=== PATIENT | male | born 1940 | race Caucasian/White ===

== ENCOUNTER 2016-05-25 09:00 | Inpatient (IN) | payer OTHER, MEDICARE ==
[~2016-05-25] VITALS: Ht 182.9 cm; Wt 73.2 kg
[2016-05-25] VITALS (9 sets, daily range): BP systolic 80–106; BP diastolic 47–64; PULSE 72–122; TEMP 36.5–36.8; O2SAT 2–99; Ht 182.9 cm; Wt 73.2 kg
[2016-05-25] MEDS ORDERED: SODIUM CHLORIDE 0.9% 500ML 500 ML IV STA ×2 (09:16→10:02)
--- NOTE | 2016-05-25 09:20 | EMERGENCY ROOM VISIT NOTE ---
History Report prepared by Eric: Jony Callejas Under the Supervision of: Keiko EnglishO. First contact with patient: 09:07 Stated Complaint: SHORTNESS OF BREATH History of Present Illness The patient is a 75 year old male who presents to the Emergency Room with complaints of persistent shortness of breath. The patient was at dialysis today when he was noted to be short of breath. The patient was sent to the emergency Department directly from dialysis. The patient was reportedly hypoxic and having significant difficulty breathing. He was placed on supplement oxygen prior to arrival which improved his situation. The patient at this time complaint of shortness of breath and cough. He states the cough is minimally productive at times. He states this began approximately 2-3 days ago. He also has been noticing left lower quadrant abdominal pain and significant nausea and vomiting every time he eats. He denies having any chest pain at this time. He is unsure if he had a fever. He states that he had approximately 3 hours of dialysis today but did not have a full course. He does not notice any weight gain. He denies having any increased swelling in his legs from baseline. He denies having any diarrhea or GI bleeding. The patient states his symptoms are improved at this time that were very significant prior to arrival. Source of History: patient Onset: today Position: other (global) Quality: other (shortness of breath) Timing: other (persistent) Associated Symptoms: + abdominal pain, + cough, + nausea, + vomiting, No chest pain, No diarrhea Review of Systems See HPI for pertinent positives & negatives. A total of 10 systems reviewed and were otherwise negative. Past Medical & Surgical Medical Problems: (1) Bladder cancer (2) CHF (congestive heart failure) (3) Dialysis patient (4) Diverticulitis (5) End stage chronic kidney disease (6) High cholesterol Surgical Problems: (1) H/O prostatectomy Family History Patient reports no known family medical history. Social History Smoking Status: Former Smoker Smokeless Tobacco Use: No Alcohol Use: other (quit 3-4 years ago) Drug Use: none Marital Status: Housing Status: lives with significant other Current/Historical Medications Scheduled Aspirin (Aspirin Ec), 81 MG PO DAILY Atorvastatin (Lipitor), 1 TAB PO HS Calcium Acetate (Phoslo 667 Mg), 2 CAP PO TID Ergocalciferol (Vitamin D 02422 Unit), 1 CAP PO WK Scheduled PRN Hydrocodone/Acetaminophen 5MG/325MG ([place] 5MG/325MG), 1 TABLET PO for Pain Ketorolac (Toradol), 10 MG PO for Pain Miscellaneous Medications Cyanocobalamin (B12) Yqbluplykjbyf-Svfisjsjnu-Xhamr (Nyquil Severe Cold/Flu 5-6.25-10-325 mg/15Ml) Vitamins C & E (Vitamin C) Allergies Coded Allergies: Aspirin (Unverified Allergy, Unknown, caused a GI Bleed, 05/25/16) Patient is currently taking aspirin Physical Exam Vital Signs Date Time Temp Pulse Resp B/P Pulse Ox O2 Delivery O2 Flow Rate FiO2 05/25/16 10:57 120 18 103/67 96 Nasal Cannula 2.0 05/25/16 10:06 101 18 92/64 94 Nasal Cannula 2.0 05/25/16 09:39 96 Nasal Cannula 2.0 05/25/16 09:12 101 05/25/16 09:10 36.6 103 20 63/41 95 Room Air Physical Exam GENERAL: Patient is awake alert. He appears anxious and somewhat uncomfortable. EYES: The conjunctivae are clear. The pupils are round and reactive. EARS, NOSE, MOUTH AND THROAT: The nose is without any evidence of any deformity. Mucous membranes are dry. NECK: The neck is nontender and supple. RESPIRATORY: Normal respiratory effort is noted. There is diffuse rhonchi noted throughout. There are rales at both bases. CARDIOVASCULAR: Tachycardic rate with ectopy noted to auscultation. No definite murmur was noted. GASTROINTESTINAL: The abdomen is soft. There is left lower quadrant tenderness to palpation. Mild guarding is noted in the left lower quadrant. MUSCULOSKELETAL/EXTREMITIES: There is no evidence of gross deformity full range of motion is noted in the hips and shoulders SKIN: There is no obvious evidence of any rash. Trace pedal edema was noted bilaterally. NEUROLOGIC: Patient is awake alert and oriented x3. Medical Decision & Procedures ER Provider Diagnostic Interpretation: X-ray results as stated below per interpretation by me and the radiologist. CHEST ONE VIEW PORTABLE CLINICAL HISTORY: Sepsis dyspnea COMPARISON STUDY: No previous studies for comparison. FINDINGS: Diffuse parenchymal infiltrate left base. Permanent gas. Vena cava. Underlying emphysematous change. Diaphragms smooth. IMPRESSION: Infiltrate left base. Emphysematous change. Electronically signed by: Waqas Jimenez M.D. 05/25/2016 9:50 AM Dictated Date/Time: 05/25/2016 9:50 AM Laboratory Results 05/25/16 09:15 Red Blood Count 2.71, Mean Corpuscular Volume 91.9, Mean Corpuscular Hemoglobin 31.0, Mean Corpuscular Hemoglobin Concent 33.7, Mean Platelet Volume 10.4 05/25/16 09:15 Test 05/25/16 09:15 05/25/16 09:24 05/25/16 09:26 05/25/16 09:56 White Blood Count 22.80 K/uL (4.8-10.8) Red Blood Count 2.71 M/uL (4.7-6.1) Hemoglobin 8.4 g/dL (14.0-18.0) Hematocrit 24.9 % (42-52) Mean Corpuscular Volume 91.9 fL (80-100) Mean Corpuscular Hemoglobin 31.0 pg (25-34) Mean Corpuscular Hemoglobin Concent 33.7 g/dl (32-36) Platelet Count 326 K/uL (130-400) Mean Platelet Volume 10.4 fL (7.4-10.4) RDW Standard Deviation 54.4 fL (36.4-46.3) RDW Coefficient of Variation 16.5 % (11.5-14.5) Nucleated RBC Absolute Count (auto) 0.06 K/uL (0-0) Neutrophils % (Manual) 89.5 % Lymphocytes % (Manual) 3.5 % Monocytes % (Manual) 2.6 % Metamyelocytes % 3.5 % Myelocytes % 0.9 % Nucleated Red Blood Cells % 0.2 % Neutrophils # (Manual) 20.41 K/uL (1.4-6.5) Total Absolute Neutrophils 20.41 K/uL (1.4-6.5) Lymphocytes # (Manual) 0.80 K/uL (1.2-3.4) Total Absolute Lymphocytes 0.80 K/uL (1.2-3.4) Monocytes # (Manual) 0.59 K/uL (0.11-0.59) Metamyelocytes # 0.80 K/uL (0-0) Myelocytes # 0.21 K/uL (0-0) Red Blood Cell Morphology Unremarkable Erythrocyte Sedimentation Rate 79 mm/hr (0-14) Prothrombin Time 11.4 SECONDS (9.0-12.0) Prothromb Time International Ratio 1.1 (0.9-1.1) Activated Partial Thromboplast Time 41.3 SECONDS (21.0-31.0) Partial Thromboplastin Ratio 1.6 Anion Gap 17.0 mmol/L (3-11) Est Creatinine Clear Calc Drug Dose 15.7 ml/min Estimated GFR () 16.2 Estimated GFR (Non- 13.9 BUN/Creatinine Ratio 11.4 (10-20) Calcium Level 10.1 mg/dl (8.5-10.1) Phosphorus Level 4.2 mg/dl (2.5-4.9) Magnesium Level 2.6 mg/dl (1.8-2.4) Total Bilirubin 0.9 mg/dl (0.2-1) Aspartate Amino Transf (AST/SGOT) 102 U/L (15-37) Alanine Aminotransferase (ALT/SGPT) 74 U/L (12-78) Alkaline Phosphatase 117 U/L (45-117) C-Reactive Protein 38.40 mg/dl (0-0.29) Pro-B-Type Natriuretic Peptide 7718 pg/ml (0-1800) Total Protein 7.9 gm/dl (6.4-8.2) Albumin 2.7 gm/dl (3.4-5.0) Globulin 5.2 gm/dl (2.5-4.0) Albumin/Globulin Ratio 0.5 (0.9-2) Lipase 99 U/L (73-393) Influenza Type A (RT-PCR) Neg for Influ A (NEG) Influenza Type A Antigen Neg for Influ A (NEG) Influenza Type B Antigen Neg for Influ B (NEG) Influenza Type B (RT-PCR) Neg for Influ B (NEG) Bedside Lactic Acid Venous 3.92 mmol/L (0.90-1.70) Venous Blood pH 7.34 (7.36-7.41) Venous Blood Partial Pressure CO2 52 mmHg (38.0-50.0) Venous Blood Partial Pressure O2 29 mmHg Venous Blood HCO3 27 mmol/L Venous Blood Oxygen Saturation < 60.0 % Venous Blood Base Excess 1.1 mmol/L Date/Time Source Procedure Growth Status 05/25/16 00:00 Nasal MRSA DNA Surveillance Screen - Final Specimen Negative for MRSA by DNA Probe Complete Laboratory results per my review. Medications Administered Medications (Trade) Dose Ordered Sig/Edna Route Start Time Stop Time Status Last Admin Dose Admin Sodium Chloride (Nss 500ml) 500 ml @ 999 mls/hr Q31M STAT IV 05/25/16 09:16 05/25/16 09:46 DC 05/25/16 10:55 999 MLS/HR Ondansetron HCl (Zofran Inj) 4 mg NOW STAT IV 05/25/16 09:27 05/25/16 09:28 DC 05/25/16 09:48 4 MG Piperacillin Sod/ Tazobactam Sod 4.5 gm 4.5 gm NOW STAT IV 05/25/16 10:01 05/25/16 10:03 DC 05/25/16 11:15 4.5 GM Sodium Chloride (Nss 500ml) 500 ml @ 999 mls/hr Q31M STAT IV 05/25/16 10:02 05/25/16 10:32 DC 05/25/16 11:15 999 MLS/HR ECG Indication: chest pain Rate (beats per minute): 104 Rhythm: sinus tachycardia Findings: PVC, ST depression (Lateral), other (low voltage noted) Comparison ECG Date: no prior available ED Course 0907: The patient was evaluated in room B06. A complete history and physical examination were performed. 0916: Sodium Chloride 500 ml @ 999 mls/hr IV 0927: Zofran Inj 4 mg IV 1001: Zosyn IV 4.5 gm IV 1002: Sodium Chloride 500 ml @ 999 mls/hr IV 1010: Upon reevaluation, the patient is resting comfortably. I discussed results and treatment plan with him. He verbalizes agreement and understanding. [facility] He recommends holding the noncontrast CT for now. The patient will be evaluated for further management and care. Medical Decision Differential diagnosis: Etiologies such as infections, reactive airway disease, pneumonia, pneumothorax , COPD, CHF, cardiac ischemia, pulmonary embolism, musculoskeletal, gastrointestinal, as well as others were entertained. Nursing notes reviewed. The patient is a 75-year-old male who presented to emergency department for an evaluation of difficulty breathing. The patient was receiving dialysis. He had almost a full run of dialysis but started having significant shortness of breath. The patient was hypotensive. Blood cultures were obtained. The patient appears to have signs of pneumonia on his workup. He was treated with IV fluids as well as IV antibiotic. He was reevaluated multiple times. I discussed patient 's laboratory and radiographic studies with him. I discussed his case with the on-call [facility] hospitalist group. They've agreed to evaluate the patient in the emergency department for further management and disposition. The patient does appear to have some signs of sepsis. I did not wish to give him a large fluid bolus given his history of dialysis and end-stage renal disease. The patient did respond well to the fluid bolus he was given in the emergency department. Consults Time Called: 1008 Consulting Physician: [facility] Returned Call: [phone] [facility]. He recommends holding the noncontrast CT for now. Impression Primary Impression: Pneumonia Additional Impressions: Hypoxia Elevated white blood cell count Hypotension Sepsis Scribe Attestation The scribe's documentation has been prepared under my direction and personally reviewed by me in its entirety. I confirm that the note above accurately reflects all work, treatment, procedures, and medical decision making performed by me. Departure Information Dispostion Being Evaluated By Hospitalist Referrals No Doctor, Assigned (PCP) Problem Qualifiers
[2016-05-25] MEDS ORDERED: ONDANSETRON INJ 2 MG/ML 2 ML VIAL IV STA (09:27)
[2016-05-25 09:38] LABS: HEMATOCRIT 24.9 % (42-52); MEAN CELL VOLUME 91.9 fL (80-100); MEAN CORPUSCULAR HGB CONC 33.7 g/dl (32-36); MEAN PLATELET VOLUME 10.4 fL (7.4-10.4); PLATELET COUNT 326 K/uL (130-400); RED BLOOD COUNT 2.71 M/uL (4.7-6.1)
[2016-05-25 09:46] LABS: INR 1.1 (0.9-1.1); PARTIAL THROMBOPLASTIN RATIO 1.6; PROTHROMBIN TIME (PATIENT) 11.4 SECONDS (9.0-12.0)
--- NOTE | 2016-05-25 09:51 | DIAGNOSTIC IMAGING REPORT ---
CHEST ONE VIEW PORTABLE CLINICAL HISTORY: Sepsis dyspnea COMPARISON STUDY: No previous studies for comparison. FINDINGS: Diffuse parenchymal infiltrate left base. Permanent gas. Vena cava. Underlying emphysematous change. Diaphragms smooth. IMPRESSION: Infiltrate left base. Emphysematous change. Electronically signed by: Waqas Jimenez M.D. 05/25/2016 9:50 AM Dictated Date/Time: 05/25/2016 9:50 AM
[2016-05-25 09:53] LABS: BUN/CREATININE RATIO 11.4 (10-20); CALCIUM 10.1 mg/dl (8.5-10.1); CREATININE 3.9 mg/dl (0.60-1.40); MAGNESIUM 2.6 mg/dl (1.8-2.4); POTASSIUM 4.1 mmol/L (3.5-5.1)
[2016-05-25 10:00] LABS: ALB/GLOB RATIO 0.5 (0.9-2); C-REACTIVE PROTEIN 38.4 mg/dl (0-0.29); PHOSPHORUS 4.2 mg/dl (2.5-4.9)
[2016-05-25] MEDS ORDERED: PIPERACILLIN/TAZOBACTAM 4.5 GM/100ML D5W IV STA (10:01)
[2016-05-25 10:10] LABS: VEN BLOOD GAS BASE EXCESS 1.1 mmol/L; VENOUS BLOOD GAS PCO2 52 mmHg (38.0-50.0); VENOUS BLOOD GAS PO2 29 mmHg
[2016-05-25 10:11] LABS: VEN BLD GAS O2 SATURATION < 60.0 %
[2016-05-25 10:12] LABS: COMPLETE YES; LYMPHOCYTE % 3.5 %; METAMYELOCYTE % 3.5 %; MYELOCYTE % 0.9 %; NEUTROPHILS % 89.5 %
[2016-05-25] MEDS ORDERED: PIPERACILLIN/TAZOBACTAM 4.5 GM/100ML D5W ONE (10:57)
[2016-05-25] MEDS ORDERED: HYDR-5688 PO (11:36)
[2016-05-25] MEDS ORDERED: ATOR-22 PO (11:36)
[2016-05-25] MEDS ORDERED: CALC667C4 PO (11:36)
[2016-05-25] MEDS ORDERED: KETO10TA PO (11:36)
[2016-05-25 11:45] LABS: INFLUENZA A PCR Neg for Influ A (NEG); INFLUENZA B PCR Neg for Influ B (NEG)
[2016-05-25] MEDS ORDERED: HYDROmorphone INJ 0.5 MG/0.5 ML SYR IV PRN (11:45)
[2016-05-25] MEDS ORDERED: ASPI81TA28 PO (11:51)
[2016-05-25] MEDS ORDERED: PHEN-905 (11:51)
[2016-05-25] MEDS ORDERED: ERGO500037 PO (11:51)
[2016-05-25] MEDS ORDERED: CYAN100073 (11:51)
[2016-05-25] MEDS ORDERED: VITACAP26 (11:51)
[2016-05-25] MEDS ORDERED: OPTIRAY 320 IV PRN (12:00)
[2016-05-25] MEDS ORDERED: PIPERACILL/TAZOBAC CONSULT ACTIVE PRN (12:45)
--- NOTE | 2016-05-25 12:52 | History and Physical ---
History & Physical Date & Time of Service: May 25, 2016 at 12:05 Chief Complaint: Shortness Of Breath Primary Care Physician: No Doctor, Assigned History of Present Illness Source: patient, family (Daughter) Mr. Ng is a 75 y/o male with PMHx of ESRD on Hemodialysis, HLD, Peptic Ulcer Disease, Bladder CA S/P Cystectomy with Ileal Conduit, COPD on Continuous O2, and Congestive Heart Failure (Unknown Type) who presents to the ED from dialysis due to hypoxia and SOB that started during treatment. Patient is a somewhat poor historian in regards to long-term medical history and does not follow with medical providers regularly. Daughter also expresses an element of non-compliance in regards to home O2 use. He was recently treated and discharged from [facility] last week after falling on ice. Per daughter, imaging was significant for a pelvic fracture but no fractures identified in the ribs however patient reports he still has pain from this. Approx. 2-3 days ago he did develop an intermittently productive cough and does report associated SOB last night. Most concerning to him was the development of constant LLQ abdominal pain that is a 10/10 but is unable to describe the sensation. He states the pain is similar to when he had ulcers. Denies alleviated factors. Is exacerbated with palpation. Does have associated N/V and is unable to keep anything down. Reports emesis is brown in color unsure if this is emesis vs sputum as he is spitting brown sputum during exam. He also reports melena? x 1 dose however reports using Pepto-Bismol prior to this episode to help with his abdominal pain. Last BM was "the other day" but not his normal. Does take daily ASA and was prescribed Toradol for his pelvic fx. Denies chronic NSAID use otherwise. Denies ETOH intake. Due to ESRD he reports that his urine output is minimal. Denies fever/chills, CP, or diarrhea. He dialyzes in [place] and is a Monday, Monday, and Monday. States he had approx. 3 hours of dialysis but did not finish the full treatment. In the ED, He was hydrated and Zosyn initiated. He is afebrile. Significant leukocytosis at 22.8. H&H of 8.4/24.9. BNP 7718. BUN/Cr of 44/3.9. Lactic acid elevated at 3.92. CXR with LLL infiltrate. He will be admitted to telemetry for further evaluation and care. Past Medical/Surgical History Medical Problems: (1) Bladder cancer Status: Resolved (2) CHF (congestive heart failure) Status: Chronic (3) Dialysis patient Status: Chronic (4) End stage chronic kidney disease Status: Chronic (5) High cholesterol Status: Chronic Surgical Problems: (1) H/O prostatectomy Status: Resolved Family History Patient reports no known family medical history. Social History Smoking Status: Current Some Day Smoker (very rare usage) Smokeless Tobacco Use: No Alcohol Use: none Drug Use: none Marital Status: Allergies Coded Allergies: Aspirin (Unverified Allergy, Unknown, caused a GI Bleed, 05/25/16) Patient is currently taking aspirin Home Medications Scheduled Aspirin (Aspirin Ec), 81 MG PO DAILY Atorvastatin (Lipitor), 1 TAB PO HS Calcium Acetate (Phoslo 667 Mg), 2 CAP PO TID Ergocalciferol (Vitamin D 37338 Unit), 1 CAP PO WK Scheduled PRN Hydrocodone/Acetaminophen 5MG/325MG ([place] 5MG/325MG), 1 TABLET PO for Pain Ketorolac (Toradol), 10 MG PO for Pain Miscellaneous Medications Cyanocobalamin (B12) Ysfedfrnmsuyi-Ywfohoiuui-Bbstf (Nyquil Severe Cold/Flu 5-6.25-10-325 mg/15Ml) Vitamins C & E (Vitamin C) Review of Systems Constitutional: No chills, No fever Eyes: No worsening of vision ENT: No nasal symptoms, No sore throat, No trouble swallowing Respiratory: + cough, + shortness of breath, + sputum (intermittent) Cardiovascular: No chest pain Abdomen: + GI bleeding (dark colored stool x 1 - did use Pepto Bismol prior), + nausea, + pain (LLQ), + vomiting, No constipation, No diarrhea Musculoskeletal: No calf pain, No swelling Genitourinary - Male: + problem reported (minimal urine output) Hematologic / Lymphatic: No abnormal bleeding/bruising, No clotting problems Integumentary: No bleeding, No new/changing skin lesions, No rash Physical Exam Vital Signs Date Time Temp Pulse Resp B/P Pulse Ox O2 Delivery O2 Flow Rate FiO2 05/25/16 10:57 120 18 103/67 96 Nasal Cannula 2.0 05/25/16 10:06 101 18 92/64 94 Nasal Cannula 2.0 05/25/16 09:39 96 Nasal Cannula 2.0 05/25/16 09:12 101 05/25/16 09:10 36.6 103 20 63/41 95 Room Air General Appearance: + mild distress (ill-appearing; grimacing), + thin Head: normocephalic, atraumatic Eyes: PERRL, sclerae normal ENT: hearing grossly normal Neck: supple, no JVD, trachea midline Respiratory/Chest: no respiratory distress, no accessory muscle use, + decreased breath sounds, + pertinent finding (barrel chested - general poor inspiratory effort) Cardiovascular: regular rate, rhythm, no gallop, no murmur Abdomen/GI: normal bowel sounds, soft, + tenderness (mild epigastric tenderness with significant LLQ tenderness to palp; minimal guarding; no rigidity), + pertinent finding (ileal conduit) Extremities/Musculoskelatal: no calf tenderness, no pedal edema Neurologic/Psych: alert, oriented x 3 Skin: normal color, warm/dry Diagnostics Laboratory Results Results Past 24 Hours Test 05/25/16 09:15 05/25/16 09:24 05/25/16 09:26 05/25/16 09:56 Range/Units White Blood Count 22.80 4.8-10.8 K/uL Red Blood Count 2.71 4.7-6.1 M/uL Hemoglobin 8.4 14.0-18.0 g/dL Hematocrit 24.9 42-52 % Mean Corpuscular Volume 91.9 80-100 fL Mean Corpuscular Hemoglobin 31.0 25-34 pg Mean Corpuscular Hemoglobin Concent 33.7 32-36 g/dl Platelet Count 326 130-400 K/uL Mean Platelet Volume 10.4 7.4-10.4 fL RDW Standard Deviation 54.4 36.4-46.3 fL RDW Coefficient of Variation 16.5 11.5-14.5 % Nucleated RBC Absolute Count (auto) 0.06 0-0 K/uL Neutrophils % (Manual) 89.5 % Lymphocytes % (Manual) 3.5 % Monocytes % (Manual) 2.6 % Metamyelocytes % 3.5 % Myelocytes % 0.9 % Nucleated Red Blood Cells % 0.2 % Neutrophils # (Manual) 20.41 1.4-6.5 K/uL Total Absolute Neutrophils 20.41 1.4-6.5 K/uL Lymphocytes # (Manual) 0.80 1.2-3.4 K/uL Total Absolute Lymphocytes 0.80 1.2-3.4 K/uL Monocytes # (Manual) 0.59 0.11-0.59 K/uL Metamyelocytes # 0.80 0-0 K/uL Myelocytes # 0.21 0-0 K/uL Red Blood Cell Morphology Unremarkable Erythrocyte Sedimentation Rate 79 0-14 mm/hr Prothrombin Time 11.4 9.0-12.0 SECONDS Prothromb Time International Ratio 1.1 0.9-1.1 Activated Partial Thromboplast Time 41.3 21.0-31.0 SECONDS Partial Thromboplastin Ratio 1.6 Sodium Level 140 136-145 mmol/L Potassium Level 4.1 3.5-5.1 mmol/L Chloride Level 97 98-107 mmol/L Carbon Dioxide Level 26 21-32 mmol/L Anion Gap 17.0 3-11 mmol/L Blood Urea Nitrogen 44 7-18 mg/dl Creatinine 3.90 0.60-1.40 mg/dl Est Creatinine Clear Calc Drug Dose 15.7 ml/min Estimated GFR () 16.2 Estimated GFR (Non- 13.9 BUN/Creatinine Ratio 11.4 10-20 Random Glucose 135 70-99 mg/dl Calcium Level 10.1 8.5-10.1 mg/dl Phosphorus Level 4.2 2.5-4.9 mg/dl Magnesium Level 2.6 1.8-2.4 mg/dl Total Bilirubin 0.9 0.2-1 mg/dl Aspartate Amino Transf (AST/SGOT) 102 15-37 U/L Alanine Aminotransferase (ALT/SGPT) 74 12-78 U/L Alkaline Phosphatase 117 45-117 U/L Total Creatine Kinase 279 39-308 U/L Creatine Kinase MB 2.8 0.5-3.6 ng/ml Creatine Kinase MB Ratio 1.0 0-3.0 Troponin I 0.035 0-0.045 ng/ml C-Reactive Protein 38.40 0-0.29 mg/dl Pro-B-Type Natriuretic Peptide 7718 0-1800 pg/ml Total Protein 7.9 6.4-8.2 gm/dl Albumin 2.7 3.4-5.0 gm/dl Globulin 5.2 2.5-4.0 gm/dl Albumin/Globulin Ratio 0.5 0.9-2 Lipase 99 73-393 U/L Influenza Type A (RT-PCR) Neg for Influ A NEG Influenza Type A Antigen Neg for Influ A NEG Influenza Type B Antigen Neg for Influ B NEG Influenza Type B (RT-PCR) Neg for Influ B NEG Bedside Lactic Acid Venous 3.92 0.90-1.70 mmol/L Venous Blood pH 7.34 7.36-7.41 Venous Blood Partial Pressure CO2 52 38.0-50.0 mmHg Venous Blood Partial Pressure O2 29 mmHg Venous Blood HCO3 27 mmol/L Venous Blood Oxygen Saturation < 60.0 % Venous Blood Base Excess 1.1 mmol/L Test 05/25/16 11:38 Range/Units Microbiology Results 05/25/16 Blood Culture, Received Pending 05/25/16 Blood Culture, Received Pending Diagnostic Radiology CHEST ONE VIEW PORTABLE CLINICAL HISTORY: Sepsis dyspnea COMPARISON STUDY: No previous studies for comparison. FINDINGS: Diffuse parenchymal infiltrate left base. Permanent gas. Vena cava. Underlying emphysematous change. Diaphragms smooth. IMPRESSION: Infiltrate left base. Emphysematous change. EKG Sinus tachycardia with Premature atrial complexes with Aberrant conduction Nonspecific ST abnormality Abnormal ECG No previous ECGs available Impression Assessment and Plan Mr. Ng is a 75 y/o male with PMHx of ESRD on Hemodialysis, HLD, Peptic Ulcer Disease, Bladder CA S/P Cystectomy with Ileal Conduit, COPD on Continuous O2, and Congestive Heart Failure (Unknown Type) who presents to the ED from dialysis due to hypoxia and SOB that started during treatment. CXR reveals LLL infiltrate. Sepsis 2/2 PNA vs Diverticulitis? - Patient is afebrile but with leukocytosis, hypotensive, tachycardic, and elevated lactic acid - Repeat lactic acid - BCx - pending - NSS x 1 L in ED - Continue NSS 75 mL/hr as unsure of patient's cardiac function -- Bolus with 500 mLs as needed based on BP - Zosyn per pharmacy dosing Abdominal Pain: Diverticulitis? - CT Abd/Pelvis with IV Contrast - will obtain as patient is a dialysis patient - Fecal and gastric occult - NPO - Dilaudid 0.5 mg Q4H PRN Healthcare Associated Pneumonia: - Patient with recent hospital admission in [place] 2/2 fall with pelvic fx - Zosyn per pharmacy dosing Chronic Anemia vs GI Bleed: - Unknown baseline but given ESRD likely H&H related to this - Unsure of GI Bleed as patient reports brown sputum vs emesis and one melenotic stool but utilized Pepto-Bismol - Serial H&H - Troponin of 0.035 will run serial enzymes - likely related to kidney function ESRD on Hemodialysis with Ileal Conduit - MWF in [place]: - I & O - patient with minimal urine output - Consult nephrology - for possible dialysis needs Congestive Heart Failure - Unknown Type: - Patient reports poor follow-up and denies current medication use for CHF COPD with Home O2: - Non-compliance with utilization and denies daily medications for management - again poor follow-up DVT Prophylaxis: - TEDs/SCDs - Will withhold chemical prophylaxis at this time due to questionable GI bleed Code Status: - FULL RESUSCITATION Disposition: - Rather independent and currently drives and lives at home - Establishment with PCP? Patient may be reluctant to accept Level of Care Telemetry Resuscitation Status FULL RESUSCITATION VTE Prophylaxis VTE Risk Assessment Done? Y/N: Yes Risk Level: Moderate Given or contraindicated: T.E.D. Stockings, SCD's
--- NOTE | 2016-05-25 13:21 | DIAGNOSTIC IMAGING REPORT ---
CT OF THE ABDOMEN AND PELVIS WITH CONTRAST CLINICAL HISTORY: Left lower quadrant pain. Sepsis. COMPARISON STUDY: None. TECHNIQUE: Following IV administration of 120 mL of Optiray-320, axial images of the abdomen and pelvis were obtained from the lung bases to the proximal femurs. Images were reviewed in the axial, sagittal, and coronal planes. IV contrast was administered without complication. CT DOSE: 545.57 mGy.cm FINDINGS: Visualized portions of the lower chest demonstrate moderate consolidation within the left lower lobe as well as consolidation within the lingula. There is severe emphysema. There is wall thickening of the distal esophagus which is fluid-filled. Note is made of moderate distention of the stomach which is largely fluid-filled. There is also distention of the first and second portions the duodenum. There is debris within the second portion of the duodenum. There is no biliary or pancreatic ductal dilatation. Note is made of a 1.5 cm hypodense lesion within the pancreatic neck shown on image 163 of 471. This is indeterminate. The spleen is unremarkable. There is a 1.9 cm left adrenal nodule and a 1.7 cm right adrenal nodule. Both kidneys are atrophic. Of note, there is gas within both collecting systems. There is no gas within the renal parenchyma. There is no hydronephrosis. A 1.1 cm lesion within the lower pole of the right kidney likely reflects a cyst. There is extensive plaque of the abdominal aorta. A fat-containing umbilical hernia is noted. There is no evidence for a bowel obstruction. There is sigmoid diverticulosis without evidence for acute diverticulitis. A right lower quadrant ileostomy is noted. The bladder is surgically absent. There is no lymphadenopathy within the abdomen or the pelvis. No suspicious osseous lesions are present. Multiple compression deformities within the spine are likely old. IMPRESSION: 1. Left lower lobe and lingular consolidation suggestive of pneumonia, potentially on the basis of aspiration. Severe emphysema. 2. Distended fluid-filled stomach and proximal duodenum with debris within the second portion of the duodenum. A duodenal obstruction would be difficult to exclude. Nasogastric tube placement may be of benefit. 3. Gas within both renal collecting systems. This is nonspecific and may reflect emphysematous pyelitis although could also be related to the ileal conduit. This could be correlated with urinalysis. 4. Extensive sigmoid diverticulosis without evidence for acute diverticulitis. 5. Indeterminate 1.5 cm hypodense lesion within the pancreatic neck. No pancreatic or biliary ductal dilatation. This lesion is indeterminate. A follow-up CT in 6 months to ensure stability is recommended.. 6. Indeterminate bilateral adrenal nodules. These likely are benign but can be assessed on subsequent CT. Electronically signed by: Christiano Machado M.D. 05/25/2016 1:20 PM Dictated Date/Time: 05/25/2016 12:52 PM
[2016-05-25] MEDS: SODIUM CHLORIDE 0.9% 1000ML 1,000 ML IV SCH (13:54)
[2016-05-25] MEDS ORDERED: ALBUT/IPRATROP 3MG/0.5MG NEB 3 ML VIAL INH PRN (14:00)
[2016-05-25] MEDS ORDERED: VANCOMYCIN CONSULT ACTIVE PRN (14:00)
[2016-05-25] MEDS: ALBUT/IPRATROP 3MG/0.5MG NEB 3 ML VIAL INH SCH ×2 (14:35→19:20)
[2016-05-25] MEDS ORDERED: VANCOMYCIN INJ 1,400 MG in SODIUM CHLORIDE 0.9% 500ML 500 ML IV ONE (15:00)
[2016-05-25] MEDS: ONDANSETRON INJ 2 MG/ML 2 ML VIAL IV PRN (15:05)
--- NOTE | 2016-05-25 15:49 | Pharmacy Progress Note ---
Pharmacy Antibiotic Consult Date of Service: May 25, 2016. Pharmacy Dosing Scope Pharmacy is consulted to initiate vancomycin/Zosyn IV dosing therapy, order appropriate labs and adjust drug dose/frequency. Subjective The patient is a 75 year old male admitted on May 25, 2016 at 11:37. with diverticulitis or pneumonia. Objective Height (Feet): 6 Height (Inches): 0 Weight (Kilograms): 70.000 Lab Results (24hrs): Laboratory Tests Test 05/25/16 09:15 BUN/Creatinine Ratio 11.4 Blood Urea Nitrogen 44 mg/dl Creatinine 3.90 mg/dl White Blood Count 22.80 K/uL Red Blood Count 2.71 M/uL Hemoglobin 8.4 g/dL Hematocrit 24.9 % Mean Corpuscular Volume 91.9 fL Mean Corpuscular Hemoglobin 31.0 pg Mean Corpuscular Hemoglobin Concent 33.7 g/dl Platelet Count 326 K/uL Mean Platelet Volume 10.4 fL Assessment & Plan Loading dose: vancomycin 1400 (20/mg/kg) mg IV X 1 dose then: Random level has been ordered for: in the AM. Zosyn: as patient is hemodialysis patient give loading dose of Zosyn 3.375 IV gm x 1 then extended infusion over 4 hours every 12 hours Pharmacy will continue to follow and will adjust dose/frequency as necessary. Thank you
[2016-05-25 16:35] LABS: HEMATOCRIT 22.6 % (42-52)
[2016-05-25 16:41] LABS: CKMB/CK RATIO 1.1 (0-3.0)
[2016-05-25] MEDS: PIPERACILL/TAZOBAC IV 3.375 GM in DEXTROSE 5% 100ML 100 ML IV SCH (18:14)
--- NOTE | 2016-05-25 19:18 | Nephrology Consultation ---
Nephrology Consultation Date & Providers Date of Consultation: May 25, 2016. Primary Care Provider: No Doctor, Assigned Referring Provider: Reason for Consultation ESRD on HD History of Present Illness Mr. Ng is a 75-year-old male with ESRD, history of bladder cancer, PUD, COPD and CHF who was admitted to [facility] earlier today with severe sepsis. Evaluation notable for left lower lobe pneumonia and possible duodenal obstruction. NGT draining dark fluid. Mr. Ng reports recent changes in stool concerning for possible GI bleed but states that his last bowel movement was 2 days ago. He was discharged from [facility] last week after a fall on ice. He was given Toradol for pain. Hemodialysis was stopped after 3 hours today due to shortness of breath and hypoxia. He was hypotensive. Blood pressure improved with IVF in the ED. Mr. Ng acknowledges recent weight loss and changing dry weight. He had no acute complaints or concerns and stated that overall he felt much better since admission. Past Medical/Surgical History Medical: Bladder cancer, ESRD, PUD, recent fall and pelvic fracture, hyperlipidemia, COPD on home O2, history of CHF Surgical: Prostatectomy with ileal conduit Allergies Coded Allergies: Aspirin (Unverified Allergy, Unknown, caused a GI Bleed, 05/25/16) Patient is currently taking aspirin Inpatient Medications Current Inpatient Medications Medications (Trade) Dose Ordered Sig/Edna Route Start Time Stop Time Status Last Admin Dose Admin Ondansetron HCl 4 mg 4 mg Q6H PRN IV 05/25/16 11:45 06/24/16 11:44 05/25/16 15:05 4 MG Piperacillin Sod/ Tazobactam Sod 3.375 gm/Dextrose 115 ml @ 28.75 mls/ hr Q12H IV 05/25/16 18:00 06/04/16 17:59 05/25/16 18:14 28.75 MLS/HR Sodium Chloride (Nss 1000ml) 1,000 ml @ 75 mls/hr [id number] IV 05/25/16 14:00 06/24/16 11:44 05/25/16 13:54 75 MLS/HR Hydromorphone HCl (Dilaudid Inj) 0.5 mg Q4H PRN IV 05/25/16 11:45 06/08/16 11:44 Ioversol (Optiray 320) 125 ml UD PRN IV 05/25/16 12:00 2/12/17 11:59 Piperacillin Sod/ Tazobactam Sod (Consult) 1 ea UD PRN N/A 05/25/16 12:45 06/24/16 12:44 Albuterol/ Ipratropium (Duoneb) 3 ml QIDR INH 05/25/16 16:00 06/24/16 15:59 05/25/16 14:35 3 ML Albuterol/ Ipratropium (Duoneb) 3 ml Q2H PRN INH 05/25/16 14:00 06/24/16 13:59 Vancomycin HCl (Consult) 1 ea UD PRN N/A 05/25/16 14:00 06/24/16 13:59 Family History Patient reports no known family medical history. Social History Smoking Status: Unknown if Ever Smoked Smokeless Tobacco Use: No Alcohol Use: none Drug Use: none Marital Status: Review of Systems A complete review of systems was performed. Pertinent positives are noted above. All other systems are negative. Physical Exam Date Time Temp Pulse Resp B/P Pulse Ox O2 Delivery O2 Flow Rate FiO2 05/25/16 17:01 106/64 05/25/16 16:05 36.8 96 18 95/47 91 Nasal Cannula 2.0 05/25/16 16:00 Nasal Cannula 2.0 05/25/16 14:39 100 20 Nasal Cannula 2.0 05/25/16 13:10 36.7 72 18 96/64 99 Room Air 05/25/16 13:10 Room Air 05/25/16 13:00 111 16 86/69 92 05/25/16 12:46 82 05/25/16 12:15 111 20 77/66 92 Nasal Cannula 2.0 05/25/16 10:57 120 18 103/67 96 Nasal Cannula 2.0 05/25/16 10:06 101 18 92/64 94 Nasal Cannula 2.0 05/25/16 09:39 96 Nasal Cannula 2.0 05/25/16 09:12 101 05/25/16 09:10 36.6 103 20 63/41 95 Room Air General Appearance: no apparent distress, + thin Head: normocephalic, atraumatic Eyes: normal inspection, sclerae normal ENT: normal ENT inspection, pharynx normal, + pertinent finding (NGT) Neck: supple, + JVD Respiratory/Chest: lungs clear, no respiratory distress, no accessory muscle use Cardiovascular: regular rate, rhythm, no murmur, + pertinent finding ( occassional ectopy) Abdomen/GI: + distended, + pertinent finding (minimal tenderness; urostomy) Extremities/Musculoskelatal: normal inspection, no pedal edema Neurologic/Psych: alert, oriented x 3 Skin: normal color Laboratory Results Last 24 Hours Test 05/25/16 09:15 05/25/16 09:24 05/25/16 09:26 05/25/16 09:56 White Blood Count 22.80 K/uL Red Blood Count 2.71 M/uL Hemoglobin 8.4 g/dL Hematocrit 24.9 % Mean Corpuscular Volume 91.9 fL Mean Corpuscular Hemoglobin 31.0 pg Mean Corpuscular Hemoglobin Concent 33.7 g/dl Platelet Count 326 K/uL Mean Platelet Volume 10.4 fL RDW Standard Deviation 54.4 fL RDW Coefficient of Variation 16.5 % Nucleated RBC Absolute Count (auto) 0.06 K/uL Neutrophils % (Manual) 89.5 % Lymphocytes % (Manual) 3.5 % Monocytes % (Manual) 2.6 % Metamyelocytes % 3.5 % Myelocytes % 0.9 % Nucleated Red Blood Cells % 0.2 % Neutrophils # (Manual) 20.41 K/uL Total Absolute Neutrophils 20.41 K/uL Lymphocytes # (Manual) 0.80 K/uL Total Absolute Lymphocytes 0.80 K/uL Monocytes # (Manual) 0.59 K/uL Metamyelocytes # 0.80 K/uL Myelocytes # 0.21 K/uL Red Blood Cell Morphology Unremarkable Erythrocyte Sedimentation Rate 79 mm/hr Prothrombin Time 11.4 SECONDS Prothromb Time International Ratio 1.1 Activated Partial Thromboplast Time 41.3 SECONDS Partial Thromboplastin Ratio 1.6 Sodium Level 140 mmol/L Potassium Level 4.1 mmol/L Chloride Level 97 mmol/L Carbon Dioxide Level 26 mmol/L Anion Gap 17.0 mmol/L Blood Urea Nitrogen 44 mg/dl Creatinine 3.90 mg/dl Est Creatinine Clear Calc Drug Dose 15.7 ml/min Estimated GFR () 16.2 Estimated GFR (Non- 13.9 BUN/Creatinine Ratio 11.4 Random Glucose 135 mg/dl Calcium Level 10.1 mg/dl Phosphorus Level 4.2 mg/dl Magnesium Level 2.6 mg/dl Total Bilirubin 0.9 mg/dl Aspartate Amino Transf (AST/SGOT) 102 U/L Alanine Aminotransferase (ALT/SGPT) 74 U/L Alkaline Phosphatase 117 U/L Total Creatine Kinase 279 U/L Creatine Kinase MB 2.8 ng/ml Creatine Kinase MB Ratio 1.0 Troponin I 0.035 ng/ml C-Reactive Protein 38.40 mg/dl Pro-B-Type Natriuretic Peptide 7718 pg/ml Total Protein 7.9 gm/dl Albumin 2.7 gm/dl Globulin 5.2 gm/dl Albumin/Globulin Ratio 0.5 Lipase 99 U/L Influenza Type A (RT-PCR) Neg for Influ A Influenza Type A Antigen Neg for Influ A Influenza Type B Antigen Neg for Influ B Influenza Type B (RT-PCR) Neg for Influ B Bedside Lactic Acid Venous 3.92 mmol/L Venous Blood pH 7.34 Venous Blood Partial Pressure CO2 52 mmHg Venous Blood Partial Pressure O2 29 mmHg Venous Blood HCO3 27 mmol/L Venous Blood Oxygen Saturation < 60.0 % Venous Blood Base Excess 1.1 mmol/L Test 05/25/16 12:30 05/25/16 15:20 05/25/16 16:57 05/25/16 17:12 Lactic Acid Level 1.9 mmol/L 1.8 mmol/L Hemoglobin 7.6 g/dL Hematocrit 22.6 % Total Creatine Kinase 237 U/L Creatine Kinase MB 2.6 ng/ml Creatine Kinase MB Ratio 1.1 Troponin I 0.041 ng/ml Impression (1) End stage chronic kidney disease (2) Dialysis patient (3) CHF (congestive heart failure) (4) Bladder cancer (5) Pneumonia (6) Sepsis Mr. Marito Ng is a 75-year-old male with ESRD on HD MWF at [facility] under the care of Dr. Clemente. He dialyzes with a TDC (having refused AVF placement). He completed 3 hours of a 4 hour treatment and left the unit below his EDW. 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 Blood pressure and volume status acceptable. Medical record was reviewed in detail. Medications are appropriately dosed for renal function. Follow up laboratory studies have been ordered. There is a concerning history of PUD and presentation with worsening anemia and concern for duodenal obstruction. Clinically improving with NGT to suction.
[2016-05-25 19:27] LABS: GASTRIC OCCULT BLOOD POS (NEG); GASTRIC OCCULT BLOOD PH 2
[2016-05-25 21:47] LABS: CKMB/CK RATIO 0.9 (0-3.0)
[2016-05-25 23:11] LABS: HEMATOCRIT 20.6 % (42-52)
[2016-05-26] VITALS (19 sets, daily range): BP systolic 100–113; BP diastolic 56–93; PULSE 87–120; TEMP 36.4–37; O2SAT 90–99
[2016-05-26] MEDS: SODIUM CHLORIDE 0.9% 1000ML 1,000 ML IV SCH (03:20)
--- NOTE | 2016-05-26 05:24 | Progress Note ---
Progress Note Contacted about hgb of 7.6 Patient has coffee ground emesis from his NG tube Type and crossed and 2 units of rbc was given, dropped to 6.9- repeat HH is still pending As patient was on Tele but on the floor, moved to MICU for more appropriate care consult gastro
[2016-05-26] MEDS: PIPERACILL/TAZOBAC IV 3.375 GM in DEXTROSE 5% 100ML 100 ML IV SCH ×2 (05:39→18:25)
[2016-05-26 05:48] LABS: HEMATOCRIT 25.5 % (42-52); MEAN CELL VOLUME 90.1 fL (80-100); MEAN CORPUSCULAR HEMOGLOBIN 30.4 pg (25-34); MEAN CORPUSCULAR HGB CONC 33.7 g/dl (32-36); MEAN PLATELET VOLUME 10.2 fL (7.4-10.4); PLATELET COUNT 259 K/uL (130-400); RED BLOOD COUNT 2.83 M/uL (4.7-6.1); WHITE BLOOD COUNT 20.85 K/uL (4.8-10.8)
[2016-05-26 06:15] LABS: BASO % 0.2 %; BASO ABS # 0.05 K/uL (0-0.2); COMPLETE YES; IG% 5.5 %; LYMPH % 7.4 %; LYMPH ABS # 1.55 K/uL (1.2-3.4); MONO % 3.8 %; NEUT % 83.1 %; POIKILOCYTOSIS PRESENT
[2016-05-26 06:28] LABS: BUN/CREATININE RATIO 15.1 (10-20); CALCIUM 8.8 mg/dl (8.5-10.1); MAGNESIUM 2.7 mg/dl (1.8-2.4); POTASSIUM 3.8 mmol/L (3.5-5.1)
[2016-05-26 06:30] LABS: CREATININE 5.9 mg/dl (0.60-1.40)
[2016-05-26] MEDS: ALBUT/IPRATROP 3MG/0.5MG NEB 3 ML VIAL INH SCH ×4 (07:33→19:17)
--- NOTE | 2016-05-26 07:56 | Gastroenterology Progress Note ---
Progress Note Medications Current Inpatient Medications Medications (Trade) Dose Ordered Sig/Edna Route Start Time Stop Time Status Last Admin Dose Admin Ondansetron HCl 4 mg 4 mg Q6H PRN IV 05/25/16 11:45 06/24/16 11:44 05/25/16 15:05 4 MG Piperacillin Sod/ Tazobactam Sod 3.375 gm/Dextrose 115 ml @ 28.75 mls/ hr Q12H IV 05/25/16 18:00 06/04/16 17:59 05/26/16 05:39 28.75 MLS/HR Sodium Chloride (Nss 1000ml) 1,000 ml @ 75 mls/hr [id number] IV 05/25/16 14:00 06/24/16 11:44 05/25/16 13:54 75 MLS/HR Hydromorphone HCl (Dilaudid Inj) 0.5 mg Q4H PRN IV 05/25/16 11:45 06/08/16 11:44 Ioversol (Optiray 320) 125 ml UD PRN IV 05/25/16 12:00 05/29/16 11:59 Piperacillin Sod/ Tazobactam Sod (Consult) 1 ea UD PRN N/A 05/25/16 12:45 06/24/16 12:44 Albuterol/ Ipratropium (Duoneb) 3 ml QIDR INH 05/25/16 16:00 06/24/16 15:59 05/25/16 19:20 3 ML Albuterol/ Ipratropium (Duoneb) 3 ml Q2H PRN INH 05/25/16 14:00 06/24/16 13:59 Vancomycin HCl (Consult) 1 ea UD PRN N/A 05/25/16 14:00 06/24/16 13:59 Objective Vital Signs Date Time Temp Pulse Resp B/P Pulse Ox O2 Delivery O2 Flow Rate FiO2 05/26/16 04:11 36.8 98 19 111/71 93 05/26/16 04:00 93 Nasal Cannula 2.0 05/26/16 04:00 36.5 97 22 111/71 93 Nasal Cannula 2.0 05/26/16 03:03 36.5 102 19 113/70 96 05/26/16 02:29 37.0 96 20 103/63 96 05/26/16 02:18 36.7 100 20 108/74 93 3.0 05/26/16 01:59 36.7 107 23 110/93 96 3.0 05/26/16 01:03 36.6 110 24 107/61 90 05/26/16 00:29 36.4 106 22 110/71 92 05/26/16 00:14 36.8 106 24 106/71 92 3.0 05/25/16 23:59 90 Nasal Cannula 3.0 05/25/16 22:53 36.8 122 20 80/53 90 Nasal Cannula 2.0 05/25/16 20:04 36.5 102 18 88/59 96 Nasal Cannula 2.0 05/25/16 20:00 2 Nasal Cannula 05/25/16 19:10 103 18 Nasal Cannula 2.0 05/25/16 17:01 106/64 05/25/16 16:05 36.8 96 18 95/47 91 Nasal Cannula 2.0 05/25/16 16:00 Nasal Cannula 2.0 05/25/16 14:39 100 20 Nasal Cannula 2.0 05/25/16 13:10 36.7 72 18 96/64 99 Room Air 05/25/16 13:10 Room Air 05/25/16 13:00 111 16 86/69 92 05/25/16 12:46 82 05/25/16 12:15 111 20 77/66 92 Nasal Cannula 2.0 05/25/16 10:57 120 18 103/67 96 Nasal Cannula 2.0 05/25/16 10:06 101 18 92/64 94 Nasal Cannula 2.0 05/25/16 09:39 96 Nasal Cannula 2.0 05/25/16 09:12 101 05/25/16 09:10 36.6 103 20 63/41 95 Room Air Laboratory Results Last 24 Hours Test 05/25/16 09:15 05/25/16 09:24 05/25/16 09:26 05/25/16 09:56 White Blood Count 22.80 K/uL Red Blood Count 2.71 M/uL Hemoglobin 8.4 g/dL Hematocrit 24.9 % Mean Corpuscular Volume 91.9 fL Mean Corpuscular Hemoglobin 31.0 pg Mean Corpuscular Hemoglobin Concent 33.7 g/dl Platelet Count 326 K/uL Mean Platelet Volume 10.4 fL RDW Standard Deviation 54.4 fL RDW Coefficient of Variation 16.5 % Nucleated RBC Absolute Count (auto) 0.06 K/uL Neutrophils % (Manual) 89.5 % Lymphocytes % (Manual) 3.5 % Monocytes % (Manual) 2.6 % Metamyelocytes % 3.5 % Myelocytes % 0.9 % Nucleated Red Blood Cells % 0.2 % Neutrophils # (Manual) 20.41 K/uL Total Absolute Neutrophils 20.41 K/uL Lymphocytes # (Manual) 0.80 K/uL Total Absolute Lymphocytes 0.80 K/uL Monocytes # (Manual) 0.59 K/uL Metamyelocytes # 0.80 K/uL Myelocytes # 0.21 K/uL Red Blood Cell Morphology Unremarkable Erythrocyte Sedimentation Rate 79 mm/hr Prothrombin Time 11.4 SECONDS Prothromb Time International Ratio 1.1 Activated Partial Thromboplast Time 41.3 SECONDS Partial Thromboplastin Ratio 1.6 Sodium Level 140 mmol/L Potassium Level 4.1 mmol/L Chloride Level 97 mmol/L Carbon Dioxide Level 26 mmol/L Anion Gap 17.0 mmol/L Blood Urea Nitrogen 44 mg/dl Creatinine 3.90 mg/dl Est Creatinine Clear Calc Drug Dose 15.7 ml/min Estimated GFR () 16.2 Estimated GFR (Non- 13.9 BUN/Creatinine Ratio 11.4 Random Glucose 135 mg/dl Calcium Level 10.1 mg/dl Phosphorus Level 4.2 mg/dl Magnesium Level 2.6 mg/dl Total Bilirubin 0.9 mg/dl Aspartate Amino Transf (AST/SGOT) 102 U/L Alanine Aminotransferase (ALT/SGPT) 74 U/L Alkaline Phosphatase 117 U/L Total Creatine Kinase 279 U/L Creatine Kinase MB 2.8 ng/ml Creatine Kinase MB Ratio 1.0 Troponin I 0.035 ng/ml C-Reactive Protein 38.40 mg/dl Pro-B-Type Natriuretic Peptide 7718 pg/ml Total Protein 7.9 gm/dl Albumin 2.7 gm/dl Globulin 5.2 gm/dl Albumin/Globulin Ratio 0.5 Lipase 99 U/L Influenza Type A (RT-PCR) Neg for Influ A Influenza Type A Antigen Neg for Influ A Influenza Type B Antigen Neg for Influ B Influenza Type B (RT-PCR) Neg for Influ B Bedside Lactic Acid Venous 3.92 mmol/L Venous Blood pH 7.34 Venous Blood Partial Pressure CO2 52 mmHg Venous Blood Partial Pressure O2 29 mmHg Venous Blood HCO3 27 mmol/L Venous Blood Oxygen Saturation < 60.0 % Venous Blood Base Excess 1.1 mmol/L Test 05/25/16 12:30 05/25/16 15:20 05/25/16 17:12 05/25/16 18:40 Lactic Acid Level 1.9 mmol/L 1.8 mmol/L Hemoglobin 7.6 g/dL Hematocrit 22.6 % Total Creatine Kinase 237 U/L Creatine Kinase MB 2.6 ng/ml Creatine Kinase MB Ratio 1.1 Troponin I 0.041 ng/ml Gastric Fluid pH 2 Gastric Fluid Occult Blood POS Test 05/25/16 21:00 05/26/16 05:18 Hemoglobin 6.9 g/dL 8.6 g/dL Hematocrit 20.6 % 25.5 % Total Creatine Kinase 197 U/L Creatine Kinase MB 1.8 ng/ml Creatine Kinase MB Ratio 0.9 Troponin I 0.050 ng/ml White Blood Count 20.85 K/uL Red Blood Count 2.83 M/uL Mean Corpuscular Volume 90.1 fL Mean Corpuscular Hemoglobin 30.4 pg Mean Corpuscular Hemoglobin Concent 33.7 g/dl Platelet Count 259 K/uL Mean Platelet Volume 10.2 fL Neutrophils (%) (Auto) 83.1 % Lymphocytes (%) (Auto) 7.4 % Monocytes (%) (Auto) 3.8 % Eosinophils (%) (Auto) 0.0 % Basophils (%) (Auto) 0.2 % Neutrophils # (Auto) 17.31 K/uL Lymphocytes # (Auto) 1.55 K/uL Monocytes # (Auto) 0.79 K/uL Eosinophils # (Auto) 0.00 K/uL Basophils # (Auto) 0.05 K/uL RDW Standard Deviation 51.4 fL RDW Coefficient of Variation 15.8 % Immature Granulocyte % (Auto) 5.5 % Immature Granulocyte # (Auto) 1.15 K/uL Nucleated RBC Absolute Count (auto) 0.12 K/uL Nucleated Red Blood Cells % 0.6 % Poikilocytosis PRESENT Sodium Level 142 mmol/L Potassium Level 3.8 mmol/L Chloride Level 90 mmol/L Carbon Dioxide Level 35 mmol/L Anion Gap 17.0 mmol/L Blood Urea Nitrogen 89 mg/dl Creatinine 5.90 mg/dl Est Creatinine Clear Calc Drug Dose 10.3 ml/min Estimated GFR () 9.8 Estimated GFR (Non- 8.5 BUN/Creatinine Ratio 15.1 Random Glucose 110 mg/dl Calcium Level 8.8 mg/dl Magnesium Level 2.7 mg/dl Random Vancomycin Level 18.8 mcg/ml Assessment and Plan GI consult dictated Job: [id number] Pt states never had EGD or colonoscopy in the past. Coffee ground emesis--likely peptic ulceration from NSAIDS--start protonix, if NG output slows can clamp NG for 4 hours and remove if no n/v, eventual EGD once cardiopulmonary status optimized acute blood loss anemia--transfuse prn abd pain--upper per patient--likely from PUD thickened esophagus on CT---eventual EGD Dilated duodenum and stomach on CT--eventual EGD pancreas lesion---outpt EUS adrenal lesions per hospitalist COPD/pneumonia, elevated BNP per hospitalist
--- NOTE | 2016-05-26 08:30 | GASTROINTESTINAL CONSULTATION ---
DATE OF CONSULTATION: 05/26/2016 REASON FOR CONSULTATION: Anemia, GI bleed. CHIEF COMPLAINT: The patient had some vomiting. HISTORY OF CHIEF COMPLAINT: The patient came into the Emergency Room from dialysis. He was having significant shortness of breath and apparently cough for the last 2-3 days. The patient noted black stool maybe about a week or so ago. He noted some abdominal pain maybe in the last week. He says it is above the umbilicus. He has not had bowel movements in the last couple of days. No dysphagia. He has lost maybe 10 pounds over the last couple weeks. No fever. He has had nausea and vomiting. He is not tolerating p.o. well. Denies GERD symptoms. Denies liver disease. States he has had a bleeding ulcer in the 1970s. States he had about 3 years ago while on NSAIDS some melena which resolved. He has been on Toradol and aspirin for a recent fall with pelvic fracture. He came to the Emergency Room, initial hemoglobin 8.4, came down to 6.9. NG was placed about 13 hours ago for persistent nausea and about 4 liters came out, coffee-ground material, about 5.5 liters out thus far, clearing at present. Abdomen and pelvic CT scan, severe COPD, thickened distal esophagus, distended stomach and fluid filled and distended first and second duodenum, debris within the second duodenum, a 1.5 cm pancreatic neck lesion, adrenal nodules bilaterally, left lower quadrant pneumonia. Chest x-ray, left lower quadrant pneumonia. Abdomen and pelvic CT scan also showed sigmoid diverticulosis, but no evidence of diverticulitis. ALLERGIES: Negative. MEDICATIONS ON ADMISSION: Aspirin, Lipitor, PhosLo, vitamin D, p.r.n. [place], Toradol, B12. PROBLEMS AND SURGERY: Bladder cancer, CHF, dialysis, hypercholesterolemia, s/p prostatectomy FAMILY HISTORY: Negative for cancer. SOCIAL HISTORY: Tobacco: Former smoker. Ethanol: Quit 3-4 years ago. REVIEW OF SYSTEMS: CONSTITUTIONAL: Weakness. EYES: Negative. EARS, NOSE, MOUTH AND THROAT: Negative. CARDIOVASCULAR: Negative. RESPIRATORY: Shortness of breath. GENITOURINARY: Minimal urination. MUSCULOSKELETAL: Pelvic pain. INTEGUMENTARY/NEUROLOGIC/PSYCHIATRIC/ENDOCRINE: Negative. HEMATOLOGIC: Chronic anemia. PHYSICAL EXAMINATION: GENERAL: Male, appears stated age, in no acute distress. VITAL SIGNS: Most recent vital signs on his chart, temperature 36.8, pulse 102, respirations 18, BP 111/71, O2 saturation 95% on 3 liters. EYES: Conjunctivae and lids normal. ENT: Oropharynx clear. NECK: Without obvious mass or thyroid enlargement. RESPIRATORY: Normal effort, clear to anterior auscultation. CARDIOVASCULAR: Without obvious murmur. ABDOMEN: Positive bowel sounds, soft. No guarding or rebound. No obvious organomegaly or masses are appreciated. RECTAL: Not done. LYMPH: No obvious neck or groin nodes. MUSCULOSKELETAL: Digits and nails normal. SKIN: Without obvious induration. NEUROLOGIC: Cranial nerves intact. Sensation intact. PSYCHIATRIC: Recent and remote memory good. Insight and judgment good. DATA: As above plus PT is okay, PTT mildly elevated at 41.3 on admission. CMP on admission: Creatinine 3.9, BUN 94, AST was 102. Elevated lactate on admission resolved. IMPRESSION AND PLAN: 1. Coffee-ground emesis, likely peptic ulceration from nonsteroidals. Start IV Protonix. 2. Continue NG. If the output slows, can clamp the NG for 4 hours, remove if no nausea and vomiting. Eventual EGD once the cardiopulmonary status has been optimized. 3. Acute blood loss anemia. Transfuse p.r.n. 4. Abdominal pain per patient, likely from peptic ulcer disease, improved. 5. Thickened esophagus on CT. Eventual EGD. 6. Dilated duodenum and stomach on CT. Eventual EGD. 7. Pancreas lesion. Outpatient EUS is recommended. 8. Adrenal lesions, per hospitalist. 9. Chronic obstructive pulmonary disease, pneumonia, elevated BNP, per hospitalist. MTDD
[2016-05-26] MEDS: PANTOprazole INJ 40 MG in SYRINGE 0 ML IV SCH ×2 (09:26→21:19)
--- NOTE | 2016-05-26 09:53 | Progress Note ---
Subjective Date of Service: May 26, 2016. Subjective Pt evaluation today including: conversation w/ patient, physical exam, chart review, lab review, review of studies, review of inpatient medication list Patient seen and evaluated. Required transfusion of PRBCs x 2 units overnight. H &H low but at this point stable NGT placed that has drained large amounts of brown fluid (7800 mL to date). Patient reports almost instantaneous relief with NGT placement. Allowed ice chips with sips of water. OK to allow matt derrick if patient prefers. Reports significant improvement in symptoms. Continues with intermittent productive cough. Denies abdominal pain or N/V. Continues to have no urine output from conduit. States that he usually can have half a bag but since his fall he has had minimal output. Problem List Medical Problems: (1) Elevated white blood cell count Status: Acute (2) Hypotension Status: Acute (3) Hypoxia Status: Acute (4) Pneumonia Status: Acute (5) Sepsis Status: Acute Review of Systems Constitutional: No chills, No fever ENT: No sore throat Respiratory: + cough, + sputum, No shortness of breath Cardiac: No chest pain, No palpitations Abdomen: No constipation, No diarrhea, No nausea, No pain, No vomiting Musculoskeletal: No calf pain, No swelling Male : + problem reported (minimal urine output) Skin: No rash Medications Current Inpatient Medications Medications (Trade) Dose Ordered Sig/Edna Route Start Time Stop Time Status Last Admin Dose Admin Ondansetron HCl 4 mg 4 mg Q6H PRN IV 05/25/16 11:45 06/24/16 11:44 05/25/16 15:05 4 MG Piperacillin Sod/ Tazobactam Sod 3.375 gm/Dextrose 115 ml @ 28.75 mls/ hr Q12H IV 05/25/16 18:00 06/04/16 17:59 05/26/16 05:39 28.75 MLS/HR Sodium Chloride (Nss 1000ml) 1,000 ml @ 75 mls/hr [id number] IV 05/25/16 14:00 06/24/16 11:44 05/25/16 13:54 75 MLS/HR Hydromorphone HCl (Dilaudid Inj) 0.5 mg Q4H PRN IV 05/25/16 11:45 06/08/16 11:44 Ioversol (Optiray 320) 125 ml UD PRN IV 05/25/16 12:00 05/29/16 11:59 Piperacillin Sod/ Tazobactam Sod (Consult) 1 ea UD PRN N/A 05/25/16 12:45 06/24/16 12:44 Albuterol/ Ipratropium (Duoneb) 3 ml QIDR INH 05/25/16 16:00 06/24/16 15:59 05/26/16 11:38 3 ML Albuterol/ Ipratropium 3 ml 3 ml Q2H PRN INH 05/25/16 14:00 06/24/16 13:59 Pantoprazole Sodium/Syringe (Protonix Inj/ Syringe) 10 ml @ 5 mls/min DAILY@ IV 05/26/16 08:00 06/25/16 07:59 Levofloxacin 1 ea 1 ea UD PRN N/A 05/26/16 12:15 06/25/16 12:14 Levofloxacin 750 mg/Prmx 150 ml @ 100 mls/hr NOW ONCE IV 05/26/16 13:00 05/26/16 14:29 Levofloxacin/Prmx (Levaquin / D5W/ Premixed D5W) 100 ml @ 100 mls/hr Q48H IV 05/28/16 12:00 06/02/16 11:59 Objective Vital Signs Date Time Temp Pulse Resp B/P Pulse Ox O2 Delivery O2 Flow Rate FiO2 05/26/16 08:00 93 Nasal Cannula 2.0 05/26/16 07:41 36.6 102 18 100/65 95 3.0 05/26/16 07:34 102 18 95 Nasal Cannula 3.0 05/26/16 04:11 36.8 98 19 111/71 93 05/26/16 04:00 93 Nasal Cannula 2.0 05/26/16 04:00 36.5 97 22 111/71 93 Nasal Cannula 2.0 05/26/16 03:03 36.5 102 19 113/70 96 05/26/16 02:29 37.0 96 20 103/63 96 05/26/16 02:18 36.7 100 20 108/74 93 3.0 05/26/16 01:59 36.7 107 23 110/93 96 3.0 05/26/16 01:03 36.6 110 24 107/61 90 05/26/16 00:29 36.4 106 22 110/71 92 05/26/16 00:14 36.8 106 24 106/71 92 3.0 05/25/16 23:59 90 Nasal Cannula 3.0 05/25/16 22:53 36.8 122 20 80/53 90 Nasal Cannula 2.0 05/25/16 20:04 36.5 102 18 88/59 96 Nasal Cannula 2.0 05/25/16 20:00 2 Nasal Cannula 05/25/16 19:10 103 18 Nasal Cannula 2.0 05/25/16 17:01 106/64 05/25/16 16:05 36.8 96 18 95/47 91 Nasal Cannula 2.0 05/25/16 16:00 Nasal Cannula 2.0 05/25/16 14:39 100 20 Nasal Cannula 2.0 05/25/16 13:10 36.7 72 18 96/64 99 Room Air 05/25/16 13:10 Room Air 05/25/16 13:00 111 16 86/69 92 05/25/16 12:46 82 05/25/16 12:15 111 20 77/66 92 Nasal Cannula 2.0 05/25/16 10:57 120 18 103/67 96 Nasal Cannula 2.0 05/25/16 10:06 101 18 92/64 94 Nasal Cannula 2.0 Physical Exam General Appearance: WD/WN, no apparent distress, + thin Eyes: sclerae normal ENT: hearing grossly normal, + pertinent finding (NGT in L nare) Neck: supple, no JVD, trachea midline Respiratory/Chest: no respiratory distress, no accessory muscle use, + crackles (L base), + pertinent finding (barrel chest; general poor airflow; HD tunnel port R chest without evidence of infection) Cardiovascular: regular rate, rhythm, no gallop, no murmur Abdomen: normal bowel sounds, non tender, soft, + pertinent finding (ileal conduit) Extremities: no pedal edema, no calf tenderness Neurologic/Psychiatric: alert, oriented x 3 Skin: normal color, warm/dry Laboratory Results Last 24 Hours Test 05/25/16 09:56 05/25/16 12:30 05/25/16 15:20 05/25/16 17:12 Venous Blood pH 7.34 Venous Blood Partial Pressure CO2 52 mmHg Venous Blood Partial Pressure O2 29 mmHg Venous Blood HCO3 27 mmol/L Venous Blood Oxygen Saturation < 60.0 % Venous Blood Base Excess 1.1 mmol/L Lactic Acid Level 1.9 mmol/L 1.8 mmol/L Hemoglobin 7.6 g/dL Hematocrit 22.6 % Total Creatine Kinase 237 U/L Creatine Kinase MB 2.6 ng/ml Creatine Kinase MB Ratio 1.1 Troponin I 0.041 ng/ml Test 05/25/16 18:40 05/25/16 21:00 05/26/16 05:18 Gastric Fluid pH 2 Gastric Fluid Occult Blood POS Hemoglobin 6.9 g/dL 8.6 g/dL Hematocrit 20.6 % 25.5 % Total Creatine Kinase 197 U/L Creatine Kinase MB 1.8 ng/ml Creatine Kinase MB Ratio 0.9 Troponin I 0.050 ng/ml White Blood Count 20.85 K/uL Red Blood Count 2.83 M/uL Mean Corpuscular Volume 90.1 fL Mean Corpuscular Hemoglobin 30.4 pg Mean Corpuscular Hemoglobin Concent 33.7 g/dl Platelet Count 259 K/uL Mean Platelet Volume 10.2 fL Neutrophils (%) (Auto) 83.1 % Lymphocytes (%) (Auto) 7.4 % Monocytes (%) (Auto) 3.8 % Eosinophils (%) (Auto) 0.0 % Basophils (%) (Auto) 0.2 % Neutrophils # (Auto) 17.31 K/uL Lymphocytes # (Auto) 1.55 K/uL Monocytes # (Auto) 0.79 K/uL Eosinophils # (Auto) 0.00 K/uL Basophils # (Auto) 0.05 K/uL RDW Standard Deviation 51.4 fL RDW Coefficient of Variation 15.8 % Immature Granulocyte % (Auto) 5.5 % Immature Granulocyte # (Auto) 1.15 K/uL Nucleated RBC Absolute Count (auto) 0.12 K/uL Nucleated Red Blood Cells % 0.6 % Poikilocytosis PRESENT Sodium Level 142 mmol/L Potassium Level 3.8 mmol/L Chloride Level 90 mmol/L Carbon Dioxide Level 35 mmol/L Anion Gap 17.0 mmol/L Blood Urea Nitrogen 89 mg/dl Creatinine 5.90 mg/dl Est Creatinine Clear Calc Drug Dose 10.3 ml/min Estimated GFR () 9.8 Estimated GFR (Non- 8.5 BUN/Creatinine Ratio 15.1 Random Glucose 110 mg/dl Calcium Level 8.8 mg/dl Magnesium Level 2.7 mg/dl Random Vancomycin Level 18.8 mcg/ml Assessment and Plan Mr. Ng is a 75 y/o male with PMHx of ESRD on Hemodialysis, HLD, Peptic Ulcer Disease, Bladder CA S/P Cystectomy with Ileal Conduit, COPD on Continuous O2, and Congestive Heart Failure (Unknown Type) who presents to the ED from dialysis due to hypoxia and SOB that started during treatment. CXR reveals LLL infiltrate. Sepsis 2/2 Healthcare Associated Pneumonia: Hospitalized last week in [place] 05/19 Fall - Remains afebrile with leukocytosis improving; intermittently tachy with hypotension stable and improved - NSS 75 mL/hr - BCx - pending - Zosyn and Levaquin per pharmacy and renal dosing Probable Peptic Ulcer with Acute Blood Loss Anemia: Gastric Occult Positive - CT Abd/Pelvis with IV Contrast - image and report reviewed - wall thickening of distal esophagus and fluid filled; moderate distention of stomach and 1st- 2nd portion of duodenum; 1.5 hypodense lesion of pancreatic neck; 1.9 cm L and 15 cm R adrenal nodule; 1.1 cm lower pole of R kidney lesion likely cyst; sigmoid diverticulosis without diverticulitis -- Recommend F/U CT 6 months to monitor for stability of lesions - NPO except sips/chips - matt derrick ok to give - Continue serial H&H throughout day - remains stable in low 8 since transfusion -- Transfuse if hgb < 8 or symptomatic - Protonix 40 mg IV BID - GI Following - recommendations reviewed - as NGT output decreases a trial of clamping can be performed; Protonix IV; EGD ESRD on Hemodialysis with Ileal Conduit - [facility] in [place]: - I & O - patient with minimal urine output - Elevated trops - likely in setting of renal disease - Consult nephrology - for possible dialysis needs - probable HD tomorrow 05/27 Congestive Heart Failure - Unknown Type: - Patient reports poor follow-up and denies current medication use for CHF - Gentle hydration at NSS 75 mL/hr - no evidence of fluid overload at current time Questionable Atrial Fibrillation on Monitor?: - Patient with poor outpatient follow-up and unsure of prior history of dysrhythmias - EKGs with sinus tach with PVCs/PACs COPD with Home O2: - Non-compliance with utilization and denies daily medications for management - again poor follow-up DVT Prophylaxis: - TEDs/SCDs - Will withhold chemical prophylaxis at this time due GI bleed Code Status: - FULL RESUSCITATION Disposition: - Rather independent and currently drives and lives at home - Needs PCP establishment and follow-up
--- NOTE | 2016-05-26 10:22 | Nephrology Progress Note ---
Nephrology Progress Note Date of Service May 26, 2016. Chief Complaint ESRD on HD Subjective PRBC transfusion overnight. Feels much better this AM. Very anxious for something to drink. NGT continues to drain dark fluid with some coffee ground consistency. Minimal abdominal discomfort. No shortness of breath. No fevers or chills. No diarrhea or melena. Review of Systems A complete review of systems was performed. Pertinent positives are noted above. All other systems are negative. Vital Signs Last 8 Hrs Date Time Temp Pulse Resp B/P Pulse Ox O2 Delivery O2 Flow Rate FiO2 05/26/16 08:00 93 Nasal Cannula 2.0 05/26/16 07:41 36.6 102 18 100/65 95 3.0 05/26/16 07:34 102 18 95 Nasal Cannula 3.0 05/26/16 04:11 36.8 98 19 111/71 93 05/26/16 04:00 93 Nasal Cannula 2.0 05/26/16 04:00 36.5 97 22 111/71 93 Nasal Cannula 2.0 05/26/16 03:03 36.5 102 19 113/70 96 05/26/16 02:29 37.0 96 20 103/63 96 05/26/16 02:18 36.7 100 20 108/74 93 3.0 I & O 24-Hour Column 05/26/16 07:59 Intake Total 1411 ml Output Total 8200 ml Balance -6789 ml Last Recorded Weight Weight (Kilograms): 69.300 Physical Exam General Appearance: no apparent distress, + thin Head: normocephalic, atraumatic Eyes: normal inspection, sclerae normal ENT: normal ENT inspection, + pertinent finding (oral mucosa dry; NGT) Neck: supple, no JVD, + pertinent finding (RIJ TDC intact) Respiratory/Chest: lungs clear, no respiratory distress, no accessory muscle use Cardiovascular: + pertinent finding (S1S2 with ectopy, no murmur or rub) Abdomen/GI: + tenderness (minimal), + distended Extremities/Musculoskelatal: normal inspection, no pedal edema Neurologic/Psych: alert, oriented x 3 Family History Patient reports no known family medical history. Social History Smokeless Tobacco Use: No Alcohol Use: none Drug Use: none Marital Status: Laboratory Results Past 24 Hours 05/25/16 15:20 05/25/16 21:00 05/26/16 05:18 Red Blood Count 2.83, Mean Corpuscular Volume 90.1, Mean Corpuscular Hemoglobin 30.4, Mean Corpuscular Hemoglobin Concent 33.7, Mean Platelet Volume 10.2, Neutrophils (%) (Auto) 83.1, Lymphocytes (%) (Auto) 7.4, Monocytes (%) (Auto) 3.8, Eosinophils (%) (Auto) 0.0, Basophils (%) (Auto) 0.2, Neutrophils # (Auto) 17.31, Lymphocytes # (Auto) 1.55, Monocytes # (Auto) 0.79, Eosinophils # (Auto) 0.00, Basophils # (Auto) 0.05 05/26/16 05:18 Test 05/25/16 12:30 05/25/16 15:20 05/25/16 17:12 05/25/16 18:40 Lactic Acid Level 1.9 mmol/L (0.4-2.0) 1.8 mmol/L (0.4-2.0) Total Creatine Kinase 237 U/L (39-308) Creatine Kinase MB 2.6 ng/ml (0.5-3.6) Creatine Kinase MB Ratio 1.1 (0-3.0) Troponin I 0.041 ng/ml (0-0.045) Gastric Fluid pH 2 Gastric Fluid Occult Blood POS (NEG) Test 05/25/16 21:00 05/26/16 05:18 Total Creatine Kinase 197 U/L (39-308) Creatine Kinase MB 1.8 ng/ml (0.5-3.6) Creatine Kinase MB Ratio 0.9 (0-3.0) Troponin I 0.050 ng/ml (0-0.045) White Blood Count 20.85 K/uL (4.8-10.8) Red Blood Count 2.83 M/uL (4.7-6.1) Hemoglobin 8.6 g/dL (14.0-18.0) Hematocrit 25.5 % (42-52) Mean Corpuscular Volume 90.1 fL (80-100) Mean Corpuscular Hemoglobin 30.4 pg (25-34) Mean Corpuscular Hemoglobin Concent 33.7 g/dl (32-36) Platelet Count 259 K/uL (130-400) Mean Platelet Volume 10.2 fL (7.4-10.4) Neutrophils (%) (Auto) 83.1 % Lymphocytes (%) (Auto) 7.4 % Monocytes (%) (Auto) 3.8 % Eosinophils (%) (Auto) 0.0 % Basophils (%) (Auto) 0.2 % Neutrophils # (Auto) 17.31 K/uL (1.4-6.5) Lymphocytes # (Auto) 1.55 K/uL (1.2-3.4) Monocytes # (Auto) 0.79 K/uL (0.11-0.59) Eosinophils # (Auto) 0.00 K/uL (0-0.5) Basophils # (Auto) 0.05 K/uL (0-0.2) RDW Standard Deviation 51.4 fL (36.4-46.3) RDW Coefficient of Variation 15.8 % (11.5-14.5) Immature Granulocyte % (Auto) 5.5 % Immature Granulocyte # (Auto) 1.15 K/uL (0.00-0.02) Nucleated RBC Absolute Count (auto) 0.12 K/uL (0-0) Nucleated Red Blood Cells % 0.6 % Poikilocytosis PRESENT Anion Gap 17.0 mmol/L (3-11) Est Creatinine Clear Calc Drug Dose 10.3 ml/min Estimated GFR () 9.8 Estimated GFR (Non- 8.5 BUN/Creatinine Ratio 15.1 (10-20) Calcium Level 8.8 mg/dl (8.5-10.1) Magnesium Level 2.7 mg/dl (1.8-2.4) Random Vancomycin Level 18.8 mcg/ml Allergies Coded Allergies: Aspirin (Unverified Allergy, Unknown, caused a GI Bleed, 05/25/16) Patient is currently taking aspirin Medications Current Inpatient Medications Medications (Trade) Dose Ordered Sig/Edna Route Start Time Stop Time Status Last Admin Dose Admin Ondansetron HCl 4 mg 4 mg Q6H PRN IV 05/25/16 11:45 06/24/16 11:44 05/25/16 15:05 4 MG Piperacillin Sod/ Tazobactam Sod 3.375 gm/Dextrose 115 ml @ 28.75 mls/ hr Q12H IV 05/25/16 18:00 06/04/16 17:59 05/26/16 05:39 28.75 MLS/HR Sodium Chloride (Nss 1000ml) 1,000 ml @ 75 mls/hr [id number] IV 05/25/16 14:00 06/24/16 11:44 05/25/16 13:54 75 MLS/HR Hydromorphone HCl (Dilaudid Inj) 0.5 mg Q4H PRN IV 05/25/16 11:45 06/08/16 11:44 Ioversol (Optiray 320) 125 ml UD PRN IV 05/25/16 12:00 05/29/16 11:59 Piperacillin Sod/ Tazobactam Sod (Consult) 1 ea UD PRN N/A 05/25/16 12:45 06/24/16 12:44 Albuterol/ Ipratropium (Duoneb) 3 ml QIDR INH 05/25/16 16:00 06/24/16 15:59 05/26/16 07:33 3 ML Albuterol/ Ipratropium (Duoneb) 3 ml Q2H PRN INH 05/25/16 14:00 06/24/16 13:59 Vancomycin HCl 1 ea 1 ea UD PRN N/A 05/25/16 14:00 06/24/16 13:59 Pantoprazole Sodium/Syringe (Protonix Inj/ Syringe) 10 ml @ 5 mls/min DAILY@09,21 IV 05/26/16 08:00 06/25/16 07:59 Impression (1) End stage chronic kidney disease (2) Dialysis patient (3) CHF (congestive heart failure) (4) Bladder cancer (5) Pneumonia (6) Sepsis Mr. Marito Ng is a 75-year-old male with ESRD on HD MWF at [facility] under the care of Dr. Clemente. He dialyzes via a TDC (having refused AVF placement). Las treatment yesterday AM - completed 3 of 4 hours. Has been below EDW due to recent weight loss. There is no emergent indication for HD today. Blood pressure and volume status acceptable. Electrolytes acceptable. Medications are appropriately dosed for renal function. Follow up laboratory studies have been ordered. There is a concerning history of PUD and presentation with worsening anemia and concern for duodenal obstruction. Clinically improving with NGT to suction. Recommendations -- Plan HD tomorrow -- TDC line care per protocol -- Medications appropriate for renal function -- Transfusion support PRN
[2016-05-26 11:35] LABS: HEMATOCRIT 24.4 % (42-52)
[2016-05-26 11:46] LABS: HEMATOCRIT 24.5 % (42-52); MEAN CELL VOLUME 89.4 fL (80-100); MEAN CORPUSCULAR HEMOGLOBIN 29.9 pg (25-34); MEAN CORPUSCULAR HGB CONC 33.5 g/dl (32-36); PLATELET COUNT 250 K/uL (130-400); RED BLOOD COUNT 2.74 M/uL (4.7-6.1); WHITE BLOOD COUNT 20.49 K/uL (4.8-10.8)
[2016-05-26] MEDS ORDERED: LEVOFLOXACIN CONSULT ACTIVE PRN (12:15)
--- NOTE | 2016-05-26 12:47 | Clinical Documentation Query ---
MS. SMITHSHAWN : CLINICAL DOCUMENTATION QUERIES QUERY 1 OF 2 Patient is a 75 year old male admitted with severe sepsis secondary to HCAP. Nursing staff reported coffee ground material to covering provider. Patient was transferred to MICU. Repeat hemoglobin with further decline to 6.9 g/dl. Patient was transfused two units of PRBC's. Repeat testing demonstrates improvement to 8.6 g/dl this a.m. (05/26). GI consultation pending. In your clinical opinion is this patient being managed for: ( X ) Gastrointestinal bleeding ( ) Other explanation of clinical findings (Please Explain) ( ) Unable to determine (Please Define) ( ) Need to Discuss ( ) Not Agree The medical record reflects the following clinical findings, treatment, and risk factors. Clinical Indicators: As above Treatment: Telemetry, I/O, NPO except chips, GI consultation, serial hematology, PRBC transfusion Risk Factors: Age, Toradol, ASA, duodenal obstruction, ?ischemic bowel QUERY 2 OF 2 Documentation includes that patient is to continuously use supplemental oxygen therapy at home. Consider addition of documentation as suggested below to further capture severity of illness and risk of mortality. In your clinical opinion is this patient being managed for: (X ) Chronic hypoxic respiratory failure ( ) Other explanation of clinical findings (Please Explain) ( ) Unable to determine (Please Define) ( ) Need to Discuss ( ) Not Agree The medical record reflects the following clinical findings, treatment, and risk factors. Clinical Indicators: As above Treatment: Provision of ongoing supplemental O2 Risk Factors: ESRD, smoker, CHF, not otherwise specified Please clarify and document your clinical opinion in the progress notes and discharge summary. Terms such as "probable", "suspected", "likely", "questionable", "possible", or "still to be ruled out" are acceptable. IF IN AGREEMENT, YOU MUST DOCUMENT ABOVE DIAGNOSTIC STATEMENT IN DAILY PROGRESS NOTES AND DISCHARGE SUMMARY. This document is not part of the patient's record. Thank You, Carter Odom, RONY [phone]
[2016-05-26] MEDS ORDERED: LEVOFLOXACIN 750MG / D5W IV ONE (13:00)
[2016-05-26 18:41] LABS: HEMATOCRIT 23.8 % (42-52)
[2016-05-26 22:41] LABS: HEMATOCRIT 22.8 % (42-52)
[2016-05-27] VITALS (27 sets, daily range): BP systolic 81–118; BP diastolic 54–69; PULSE 61–105; TEMP 36.6–37; O2SAT 90–98
[2016-05-27] MEDS: SODIUM CHLORIDE 0.9% 1000ML 1,000 ML IV SCH ×2 (00:50→06:08)
[2016-05-27] MEDS: PIPERACILL/TAZOBAC IV 3.375 GM in DEXTROSE 5% 100ML 100 ML IV SCH ×2 (06:09→17:47)
[2016-05-27] MEDS ORDERED: NURSING VERBAL MED ORDER ONE ×2 (06:30→15:00)
[2016-05-27] MEDS: ACETAMINOPHEN 325 MG TAB PO PRN (06:36)
[2016-05-27 06:41] LABS: HEMATOCRIT 23.2 % (42-52); MEAN CELL VOLUME 89.9 fL (80-100); MEAN CORPUSCULAR HEMOGLOBIN 30.6 pg (25-34); MEAN CORPUSCULAR HGB CONC 34.1 g/dl (32-36); MEAN PLATELET VOLUME 9.7 fL (7.4-10.4); PLATELET COUNT 242 K/uL (130-400); RED BLOOD COUNT 2.58 M/uL (4.7-6.1); WHITE BLOOD COUNT 18.99 K/uL (4.8-10.8)
[2016-05-27 06:44] LABS: URINE APPEARANCE CLOUDY (CLEAR); URINE BILIRUBIN NEG (NEG); URINE COLOR YELLOW; URINE NITRITE NEG (NEG); URINE PH 6.5 (4.5-7.5); UROBILINOGEN NEG (NEG); ZZUR CULT IF INDIC CLEAN CATCH YES
[2016-05-27 06:46] LABS: MANUAL MICROSCOPIC REQUIRED? NO; REVIEW REQ? YES
[2016-05-27 07:09] LABS: BASO % 0.3 %; BASO ABS # 0.06 K/uL (0-0.2); COMPLETE YES; EOS % 0.7 %; LYMPH % 8.9 %; LYMPH ABS # 1.69 K/uL (1.2-3.4); NEUT % 77.1 %
[2016-05-27] MEDS: ALBUT/IPRATROP 3MG/0.5MG NEB 3 ML VIAL INH SCH ×4 (07:12→19:09)
[2016-05-27 07:48] LABS: BUN/CREATININE RATIO 15.1 (10-20); CALCIUM 8.6 mg/dl (8.5-10.1); CREATININE 7.3 mg/dl (0.60-1.40); MAGNESIUM 2.7 mg/dl (1.8-2.4)
[2016-05-27] MEDS: ONDANSETRON INJ 2 MG/ML 2 ML VIAL IV PRN (07:53)
[2016-05-27] MEDS: PANTOprazole INJ 40 MG in SYRINGE 0 ML IV SCH ×2 (07:53→21:15)
--- NOTE | 2016-05-27 08:52 | Gastroenterology Progress Note ---
Progress Note Date of Service: May 27, 2016 Subjective Pt evaluation today including: conversation w/ patient, physical exam, chart review, lab review, review of studies, review of inpatient medication list CC f/u n/v HPI Pt with some nausea last night and NG which had been clamped was placed to suction for awhile. However clamped now since about 2 am and no n/v. No abd pain. Review of Systems Respiratory: No shortness of breath Cardiac: No chest pain Medications Current Inpatient Medications Medications (Trade) Dose Ordered Sig/Enda Route Start Time Stop Time Status Last Admin Dose Admin Ondansetron HCl 4 mg 4 mg Q6H PRN IV 05/25/16 11:45 06/24/16 11:44 05/27/16 07:53 4 MG Piperacillin Sod/ Tazobactam Sod 3.375 gm/Dextrose 115 ml @ 28.75 mls/ hr Q12H IV 05/25/16 18:00 06/04/16 17:59 05/27/16 06:09 28.75 MLS/HR Sodium Chloride (Nss 1000ml) 1,000 ml @ 75 mls/hr [id number] IV 05/25/16 14:00 06/24/16 11:44 05/27/16 06:08 75 MLS/HR Hydromorphone HCl (Dilaudid Inj) 0.5 mg Q4H PRN IV 05/25/16 11:45 06/08/16 11:44 Ioversol (Optiray 320) 125 ml UD PRN IV 05/25/16 12:00 05/29/16 11:59 Piperacillin Sod/ Tazobactam Sod (Consult) 1 ea UD PRN N/A 05/25/16 12:45 06/24/16 12:44 Albuterol/ Ipratropium (Duoneb) 3 ml QIDR INH 05/25/16 16:00 06/24/16 15:59 05/27/16 07:12 3 ML Albuterol/ Ipratropium 3 ml 3 ml Q2H PRN INH 05/25/16 14:00 06/24/16 13:59 Pantoprazole Sodium/Syringe (Protonix Inj/ Syringe) 10 ml @ 5 mls/min DAILY@09,21 IV 05/26/16 08:00 06/25/16 07:59 05/27/16 07:53 5 MLS/MIN Levofloxacin 1 ea 1 ea UD PRN N/A 05/26/16 12:15 06/25/16 12:14 Levofloxacin/Prmx (Levaquin / D5W/ Premixed D5W) 100 ml @ 100 mls/hr Q48H IV 05/28/16 12:00 06/02/16 11:59 Acetaminophen (Tylenol Tab) 650 mg Q6H PRN PO 05/27/16 06:30 06/26/16 06:29 05/27/16 06:36 650 MG Objective Vital Signs Date Time Temp Pulse Resp B/P Pulse Ox O2 Delivery O2 Flow Rate FiO2 05/27/16 08:03 36.9 76 16 101/60 98 05/27/16 04:00 Nasal Cannula 3.0 05/27/16 03:26 36.6 85 22 105/63 97 Nasal Cannula 3.0 05/26/16 23:59 Nasal Cannula 3.0 05/26/16 23:39 37.0 87 22 101/56 98 Nasal Cannula 3.0 05/26/16 20:00 Nasal Cannula 3.0 05/26/16 19:37 36.6 90 22 106/70 99 Nasal Cannula 4.0 05/26/16 19:17 95 14 92 Nasal Cannula 4.0 05/26/16 16:50 95 95 Nasal Cannula 3.0 05/26/16 16:00 Nasal Cannula 2.0 05/26/16 15:27 36.4 120 26 104/65 91 Nasal Cannula 4.0 05/26/16 12:00 Nasal Cannula 2.0 05/26/16 11:44 36.8 90 20 107/64 98 05/26/16 11:39 88 18 95 Nasal Cannula 3.0 Physical Exam General Appearance: WD/WN, no apparent distress Cardiovascular: no murmur Abdomen: normal bowel sounds, non tender, soft, no organomegaly Neurologic/Psych: normal mood/affect, oriented x 3 Laboratory Results Last 24 Hours Test 05/26/16 11:15 05/26/16 14:02 05/26/16 18:17 05/26/16 22:30 White Blood Count 20.49 K/uL Red Blood Count 2.74 M/uL Hemoglobin 8.3 g/dL 8.0 g/dL 7.7 g/dL Hematocrit 24.4 % 23.8 % 22.8 % Mean Corpuscular Volume 89.4 fL Mean Corpuscular Hemoglobin 29.9 pg Mean Corpuscular Hemoglobin Concent 33.5 g/dl RDW Standard Deviation 52.3 fL RDW Coefficient of Variation 16.3 % Platelet Count 250 K/uL Mean Platelet Volume 10.0 fL Nucleated RBC Absolute Count (auto) 0.15 K/uL Nucleated Red Blood Cells % 0.7 % Troponin I 0.088 ng/ml 0.080 ng/ml Test 05/27/16 06:10 05/27/16 08:34 White Blood Count 18.99 K/uL Red Blood Count 2.58 M/uL Hemoglobin 7.9 g/dL Hematocrit 23.2 % Mean Corpuscular Volume 89.9 fL Mean Corpuscular Hemoglobin 30.6 pg Mean Corpuscular Hemoglobin Concent 34.1 g/dl Platelet Count 242 K/uL Mean Platelet Volume 9.7 fL Neutrophils (%) (Auto) 77.1 % Lymphocytes (%) (Auto) 8.9 % Monocytes (%) (Auto) 5.0 % Eosinophils (%) (Auto) 0.7 % Basophils (%) (Auto) 0.3 % Neutrophils # (Auto) 14.64 K/uL Lymphocytes # (Auto) 1.69 K/uL Monocytes # (Auto) 0.95 K/uL Eosinophils # (Auto) 0.13 K/uL Basophils # (Auto) 0.06 K/uL RDW Standard Deviation 51.5 fL RDW Coefficient of Variation 16.0 % Immature Granulocyte % (Auto) 8.0 % Immature Granulocyte # (Auto) 1.52 K/uL Nucleated RBC Absolute Count (auto) 0.09 K/uL Nucleated Red Blood Cells % 0.5 % Hypogranular Neutrophils 2+ Urine Color YELLOW Urine Appearance CLOUDY Urine pH 6.5 Urine Specific [place] 1.030 Urine Protein 2+ Urine Glucose (UA) NEG Urine Ketones NEG Urine Occult Blood 2+ Urine Nitrite NEG Urine Bilirubin NEG Urine Urobilinogen NEG Urine Leukocyte Esterase SMALL Urine WBC (Auto) >30 /hpf Urine RBC (Auto) 10-30 /hpf Urine Hyaline Casts (Auto) /lpf Urine Epithelial Cells (Auto) 5-10 /lpf Urine Bacteria (Auto) 4+ Urine Crystals CALCIUM OXALATE Urine Pathogenic Casts /lpf Urine Yeast (Auto) Sodium Level 138 mmol/L Potassium Level 4.0 mmol/L Chloride Level 88 mmol/L Carbon Dioxide Level 36 mmol/L Anion Gap 14.0 mmol/L Blood Urea Nitrogen 110 mg/dl Creatinine 7.30 mg/dl Est Creatinine Clear Calc Drug Dose 8.3 ml/min Estimated GFR () 7.6 Estimated GFR (Non- 6.5 BUN/Creatinine Ratio 15.1 Random Glucose 97 mg/dl Calcium Level 8.6 mg/dl Magnesium Level 2.7 mg/dl Troponin I 0.100 ng/ml Assessment and Plan Pt states never had EGD or colonoscopy in the past. Coffee ground emesis--likely peptic ulceration from NSAIDS--PPI, start clear and if tolerates can pull NG tube. Could do EGD this afternoon but dialysis planned which apparently cannot be moved up. Reevaluate for EGD over weekend or on monday depending on clinical cours. acute blood loss anemia--transfuse prn--stable. abd pain--upper per patient--likely from PUD thickened esophagus on CT---eventual EGD Dilated duodenum and stomach on CT--r/o duodenal obstruction from PUD eventual EGD pancreas lesion---outpt EUS adrenal lesions per hospitalist COPD/pneumonia, elevated BNP per hospitalist
--- NOTE | 2016-05-27 09:18 | Nephrology Progress Note ---
Nephrology Progress Note Date of Service May 27, 2016. Chief Complaint ESRD on HD Subjective No acute events overnight. Only complaint this morning is that he is not able to drink and that the NGT is uncomfortable. Denies abdominal pain. No nausea. NGT draining bilious fluid. Few NSVT on tele this AM but patient asymptomatic. Denies shortness of breath. Review of Systems A complete review of systems was performed. Pertinent positives are noted above. All other systems are negative. Vital Signs Last 8 Hrs Date Time Temp Pulse Resp B/P Pulse Ox O2 Delivery O2 Flow Rate FiO2 05/27/16 08:03 36.9 76 16 101/60 98 05/27/16 04:00 Nasal Cannula 3.0 05/27/16 03:26 36.6 85 22 105/63 97 Nasal Cannula 3.0 I & O 24-Hour Column 05/27/16 08:00 Intake Total 2511 ml Output Total 6290 ml Balance -3779 ml Last Recorded Weight Weight (Kilograms): 69.400 Physical Exam General Appearance: no apparent distress, + thin Head: normocephalic, atraumatic Eyes: normal inspection, sclerae normal ENT: normal ENT inspection, pharynx normal, + pertinent finding (NGT) Neck: supple, no JVD, + pertinent finding (RIJ TDC) Respiratory/Chest: lungs clear, no respiratory distress, no accessory muscle use Cardiovascular: regular rate, rhythm Abdomen/GI: non tender, soft Extremities/Musculoskelatal: normal inspection, no pedal edema Neurologic/Psych: alert, oriented x 3 Family History Patient reports no known family medical history. Social History Smokeless Tobacco Use: No Alcohol Use: none Drug Use: none Marital Status: Laboratory Results Past 24 Hours 05/26/16 11:15 05/26/16 18:17 05/26/16 22:30 05/27/16 06:10 Red Blood Count 2.58, Mean Corpuscular Volume 89.9, Mean Corpuscular Hemoglobin 30.6, Mean Corpuscular Hemoglobin Concent 34.1, Mean Platelet Volume 9.7, Neutrophils (%) (Auto) 77.1, Lymphocytes (%) (Auto) 8.9, Monocytes (%) (Auto) 5.0, Eosinophils (%) (Auto) 0.7, Basophils (%) (Auto) 0.3, Neutrophils # (Auto) 14.64, Lymphocytes # (Auto) 1.69, Monocytes # (Auto) 0.95, Eosinophils # (Auto) 0.13, Basophils # (Auto) 0.06 05/27/16 06:10 Test 05/26/16 11:15 05/26/16 14:02 05/26/16 22:30 05/27/16 06:10 Red Blood Count 2.74 M/uL (4.7-6.1) 2.58 M/uL (4.7-6.1) Mean Corpuscular Volume 89.4 fL (80-100) 89.9 fL (80-100) Mean Corpuscular Hemoglobin 29.9 pg (25-34) 30.6 pg (25-34) Mean Corpuscular Hemoglobin Concent 33.5 g/dl (32-36) 34.1 g/dl (32-36) RDW Standard Deviation 52.3 fL (36.4-46.3) 51.5 fL (36.4-46.3) RDW Coefficient of Variation 16.3 % (11.5-14.5) 16.0 % (11.5-14.5) Mean Platelet Volume 10.0 fL (7.4-10.4) 9.7 fL (7.4-10.4) Nucleated RBC Absolute Count (auto) 0.15 K/uL (0-0) 0.09 K/uL (0-0) Nucleated Red Blood Cells % 0.7 % 0.5 % Troponin I 0.088 ng/ml (0-0.045) 0.080 ng/ml (0-0.045) 0.100 ng/ml (0-0.045) White Blood Count 18.99 K/uL (4.8-10.8) Hemoglobin 7.9 g/dL (14.0-18.0) Hematocrit 23.2 % (42-52) Platelet Count 242 K/uL (130-400) Neutrophils (%) (Auto) 77.1 % Lymphocytes (%) (Auto) 8.9 % Monocytes (%) (Auto) 5.0 % Eosinophils (%) (Auto) 0.7 % Basophils (%) (Auto) 0.3 % Neutrophils # (Auto) 14.64 K/uL (1.4-6.5) Lymphocytes # (Auto) 1.69 K/uL (1.2-3.4) Monocytes # (Auto) 0.95 K/uL (0.11-0.59) Eosinophils # (Auto) 0.13 K/uL (0-0.5) Basophils # (Auto) 0.06 K/uL (0-0.2) Immature Granulocyte % (Auto) 8.0 % Immature Granulocyte # (Auto) 1.52 K/uL (0.00-0.02) Hypogranular Neutrophils 2+ Urine Color YELLOW Urine Appearance CLOUDY (CLEAR) Urine pH 6.5 (4.5-7.5) Urine Specific [place] 1.030 (1.000-1.030) Urine Protein 2+ (NEG) Urine Glucose (UA) NEG (NEG) Urine Ketones NEG (NEG) Urine Occult Blood 2+ (NEG) Urine Nitrite NEG (NEG) Urine Bilirubin NEG (NEG) Urine Urobilinogen NEG (NEG) Urine Leukocyte Esterase SMALL (NEG) Urine WBC (Auto) >30 /hpf (0-5) Urine RBC (Auto) 10-30 /hpf (0-4) Urine Hyaline Casts (Auto) /lpf (0-5) Urine Epithelial Cells (Auto) 5-10 /lpf (0-5) Urine Bacteria (Auto) 4+ (NEG) Urine Crystals CALCIUM OXALATE (NONE Urine Pathogenic Casts /lpf (0) Urine Yeast (Auto) (NONE PRSENT) Anion Gap 14.0 mmol/L (3-11) Est Creatinine Clear Calc Drug Dose 8.3 ml/min Estimated GFR () 7.6 Estimated GFR (Non- 6.5 BUN/Creatinine Ratio 15.1 (10-20) Calcium Level 8.6 mg/dl (8.5-10.1) Magnesium Level 2.7 mg/dl (1.8-2.4) Test 05/27/16 08:34 Allergies Coded Allergies: Aspirin (Unverified Allergy, Unknown, caused a GI Bleed, 05/25/16) Patient is currently taking aspirin Medications Current Inpatient Medications Medications (Trade) Dose Ordered Sig/Edna Route Start Time Stop Time Status Last Admin Dose Admin Ondansetron HCl 4 mg 4 mg Q6H PRN IV 05/25/16 11:45 06/24/16 11:44 05/27/16 07:53 4 MG Piperacillin Sod/ Tazobactam Sod 3.375 gm/Dextrose 115 ml @ 28.75 mls/ hr Q12H IV 05/25/16 18:00 06/04/16 17:59 05/27/16 06:09 28.75 MLS/HR Sodium Chloride (Nss 1000ml) 1,000 ml @ 75 mls/hr [id number] IV 05/25/16 14:00 06/24/16 11:44 05/27/16 06:08 75 MLS/HR Hydromorphone HCl (Dilaudid Inj) 0.5 mg Q4H PRN IV 05/25/16 11:45 06/08/16 11:44 Ioversol (Optiray 320) 125 ml UD PRN IV 05/25/16 12:00 05/29/16 11:59 Piperacillin Sod/ Tazobactam Sod (Consult) 1 ea UD PRN N/A 05/25/16 12:45 06/24/16 12:44 Albuterol/ Ipratropium (Duoneb) 3 ml QIDR INH 05/25/16 16:00 06/24/16 15:59 05/27/16 07:12 3 ML Albuterol/ Ipratropium 3 ml 3 ml Q2H PRN INH 05/25/16 14:00 06/24/16 13:59 Pantoprazole Sodium/Syringe (Protonix Inj/ Syringe) 10 ml @ 5 mls/min DAILY@09,21 IV 05/26/16 08:00 06/25/16 07:59 05/27/16 07:53 5 MLS/MIN Levofloxacin 1 ea 1 ea UD PRN N/A 05/26/16 12:15 06/25/16 12:14 Levofloxacin/Prmx (Levaquin / D5W/ Premixed D5W) 100 ml @ 100 mls/hr Q48H IV 05/28/16 12:00 06/02/16 11:59 Acetaminophen (Tylenol Tab) 650 mg Q6H PRN PO 05/27/16 06:30 06/26/16 06:29 05/27/16 06:36 650 MG Impression (1) End stage chronic kidney disease (2) Dialysis patient (3) CHF (congestive heart failure) (4) Bladder cancer (5) Pneumonia (6) Sepsis Mr. Marito Ng is a 75-year-old male with ESRD on HD MWF at [facility] under the care of Dr. Clemente. He dialyzes via a TDC (having refused AVF placement). Patient has been below EDW due to recent weight loss. Plan for HD today for clearance with minimal UF. Hold heparin with HD. Line care per protocol. H/H stable. Recommendations -- HD today, 4 hrs: goal Qb 300 via TDC -- Monitor H/H -- Hold FRANCESCA in setting of recent acute blood loss. Patient on Mircera as outpatient -- Medications appropriate for renal function
[2016-05-27 09:24] LABS: HEPATITIS B AB NEG
--- NOTE | 2016-05-27 12:29 | Progress Note ---
Subjective Date of Service: May 27, 2016. Subjective Pt evaluation today including: conversation w/ patient, physical exam, chart review, lab review, review of inpatient medication list Patient seen and evaluated. Intermittent nausea yesterday but resolved currently. Receiving dialysis at this time. Feels "80%" better since admission. Tolerating fluid intake. No further abdominal pain. Producing small amount of dark colored urine. Blood counts have been low but stable. Problem List Medical Problems: (1) Elevated white blood cell count Status: Acute (2) Hypotension Status: Acute (3) Hypoxia Status: Acute (4) Pneumonia Status: Acute (5) Sepsis Status: Acute Review of Systems Constitutional: No chills, No fever Respiratory: No cough, No shortness of breath Cardiac: No chest pain Abdomen: + nausea (intermittent but largely resolved), No pain, No vomiting Musculoskeletal: No calf pain, No swelling Male : + problem reported (minimal output) Skin: No rash Medications Current Inpatient Medications Medications (Trade) Dose Ordered Sig/Edna Route Start Time Stop Time Status Last Admin Dose Admin Ondansetron HCl 4 mg 4 mg Q6H PRN IV 05/25/16 11:45 06/24/16 11:44 05/27/16 07:53 4 MG Piperacillin Sod/ Tazobactam Sod 3.375 gm/Dextrose 115 ml @ 28.75 mls/ hr Q12H IV 05/25/16 18:00 06/04/16 17:59 05/27/16 06:09 28.75 MLS/HR Sodium Chloride (Nss 1000ml) 1,000 ml @ 75 mls/hr [id number] IV 05/25/16 14:00 06/24/16 11:44 05/27/16 06:08 75 MLS/HR Hydromorphone HCl (Dilaudid Inj) 0.5 mg Q4H PRN IV 05/25/16 11:45 06/08/16 11:44 Ioversol (Optiray 320) 125 ml UD PRN IV 05/25/16 12:00 05/29/16 11:59 Piperacillin Sod/ Tazobactam Sod (Consult) 1 ea UD PRN N/A 05/25/16 12:45 06/24/16 12:44 Albuterol/ Ipratropium (Duoneb) 3 ml QIDR INH 05/25/16 16:00 3/10/17 15:59 05/27/16 11:11 3 ML Albuterol/ Ipratropium 3 ml 3 ml Q2H PRN INH 05/25/16 14:00 06/24/16 13:59 Pantoprazole Sodium/Syringe (Protonix Inj/ Syringe) 10 ml @ 5 mls/min DAILY@09,21 IV 05/26/16 08:00 06/25/16 07:59 05/27/16 07:53 5 MLS/MIN Levofloxacin 1 ea 1 ea UD PRN N/A 05/26/16 12:15 06/25/16 12:14 Levofloxacin/Prmx (Levaquin / D5W/ Premixed D5W) 100 ml @ 100 mls/hr Q48H IV 05/28/16 12:00 06/02/16 11:59 Acetaminophen (Tylenol Tab) 650 mg Q6H PRN PO 05/27/16 06:30 06/26/16 06:29 05/27/16 06:36 650 MG Objective Vital Signs Date Time Temp Pulse Resp B/P Pulse Ox O2 Delivery O2 Flow Rate FiO2 05/27/16 11:45 79 104/62 05/27/16 11:31 37.0 77 16 92/64 95 05/27/16 11:30 85 88/63 05/27/16 11:15 86 107/69 05/27/16 11:12 95 14 92 Nasal Cannula 4.0 05/27/16 11:00 82 92/64 05/27/16 10:45 82 100/66 05/27/16 10:30 82 111/64 05/27/16 10:15 61 106/64 05/27/16 10:05 82 104/60 05/27/16 08:05 Nasal Cannula 3.0 05/27/16 08:03 36.9 76 16 101/60 98 05/27/16 07:12 95 14 93 Nasal Cannula 4.0 05/27/16 04:00 Nasal Cannula 3.0 05/27/16 03:26 36.6 85 22 105/63 97 Nasal Cannula 3.0 05/26/16 23:59 Nasal Cannula 3.0 05/26/16 23:39 37.0 87 22 101/56 98 Nasal Cannula 3.0 05/26/16 20:00 Nasal Cannula 3.0 05/26/16 19:37 36.6 90 22 106/70 99 Nasal Cannula 4.0 05/26/16 19:17 95 14 92 Nasal Cannula 4.0 05/26/16 16:50 95 95 Nasal Cannula 3.0 05/26/16 16:00 Nasal Cannula 2.0 05/26/16 15:27 36.4 120 26 104/65 91 Nasal Cannula 4.0 05/26/16 12:00 Nasal Cannula 2.0 Physical Exam General Appearance: WD/WN, no apparent distress, + thin Eyes: sclerae normal ENT: hearing grossly normal Neck: supple, no JVD, trachea midline Respiratory/Chest: no respiratory distress, no accessory muscle use, + wheezing (intermittent sporadic wheeze), + pertinent finding (Tunnelled HD catheter R chest) Cardiovascular: regular rate, rhythm, no gallop, no murmur Abdomen: normal bowel sounds, non tender, soft Extremities: no pedal edema, no calf tenderness Neurologic/Psychiatric: alert, oriented x 3 Skin: normal color, warm/dry Laboratory Results Last 24 Hours Test 05/26/16 14:02 05/26/16 18:17 05/26/16 22:30 05/27/16 06:10 Troponin I 0.088 ng/ml 0.080 ng/ml 0.100 ng/ml Hemoglobin 8.0 g/dL 7.7 g/dL 7.9 g/dL Hematocrit 23.8 % 22.8 % 23.2 % White Blood Count 18.99 K/uL Red Blood Count 2.58 M/uL Mean Corpuscular Volume 89.9 fL Mean Corpuscular Hemoglobin 30.6 pg Mean Corpuscular Hemoglobin Concent 34.1 g/dl Platelet Count 242 K/uL Mean Platelet Volume 9.7 fL Neutrophils (%) (Auto) 77.1 % Lymphocytes (%) (Auto) 8.9 % Monocytes (%) (Auto) 5.0 % Eosinophils (%) (Auto) 0.7 % Basophils (%) (Auto) 0.3 % Neutrophils # (Auto) 14.64 K/uL Lymphocytes # (Auto) 1.69 K/uL Monocytes # (Auto) 0.95 K/uL Eosinophils # (Auto) 0.13 K/uL Basophils # (Auto) 0.06 K/uL RDW Standard Deviation 51.5 fL RDW Coefficient of Variation 16.0 % Immature Granulocyte % (Auto) 8.0 % Immature Granulocyte # (Auto) 1.52 K/uL Nucleated RBC Absolute Count (auto) 0.09 K/uL Nucleated Red Blood Cells % 0.5 % Hypogranular Neutrophils 2+ Urine Color YELLOW Urine Appearance CLOUDY Urine pH 6.5 Urine Specific [place] 1.030 Urine Protein 2+ Urine Glucose (UA) NEG Urine Ketones NEG Urine Occult Blood 2+ Urine Nitrite NEG Urine Bilirubin NEG Urine Urobilinogen NEG Urine Leukocyte Esterase SMALL Urine WBC (Auto) >30 /hpf Urine RBC (Auto) 10-30 /hpf Urine Hyaline Casts (Auto) /lpf Urine Epithelial Cells (Auto) 5-10 /lpf Urine Bacteria (Auto) 4+ Urine Crystals CALCIUM OXALATE Urine Pathogenic Casts /lpf Urine Yeast (Auto) Sodium Level 138 mmol/L Potassium Level 4.0 mmol/L Chloride Level 88 mmol/L Carbon Dioxide Level 36 mmol/L Anion Gap 14.0 mmol/L Blood Urea Nitrogen 110 mg/dl Creatinine 7.30 mg/dl Est Creatinine Clear Calc Drug Dose 8.3 ml/min Estimated GFR () 7.6 Estimated GFR (Non- 6.5 BUN/Creatinine Ratio 15.1 Random Glucose 97 mg/dl Calcium Level 8.6 mg/dl Magnesium Level 2.7 mg/dl Test 05/27/16 08:34 Hepatitis B Surface Antigen NEG Hepatitis B Surface Antibody NEG Assessment and Plan Mr. Ng is a 75 y/o male with PMHx of ESRD on Hemodialysis, HLD, Peptic Ulcer Disease, Bladder CA S/P Cystectomy with Ileal Conduit, COPD on Continuous O2, and Congestive Heart Failure (Unknown Type) who presents to the ED from dialysis due to hypoxia and SOB that started during treatment. CXR reveals LLL infiltrate. Sepsis 2/2 Healthcare Associated Pneumonia: Hospitalized last week in [place] 2/ Fall: SEPSIS RESOLVED - NSS 75 mL/hr - U/A finally able to be maintained as UO has been absent - even with Abx therapy shows 4+ bacteria -- Will await culture if antibiotics need adjusted however overall patient with improvement since admission - Zosyn and Levaquin per pharmacy and renal dosing GI Bleed - Probable Peptic Ulcer with Acute Blood Loss Anemia: Gastric Occult Positive - H&H low but stable will withhold further transfusion at this time but will transfuse as necessary based on labs and vitals - Protonix 40 mg IV BID - GI Following - recommendations reviewed - plan for EGD ESRD on Hemodialysis with Ileal Conduit - MWF in [place]: - I & O - patient with minimal urine output - Elevated trops - likely in setting of renal disease - Nephrology following Congestive Heart Failure - Unknown Type: - Patient reports poor follow-up and denies current medication use for CHF - Gentle hydration at NSS 75 mL/hr - no evidence of fluid overload at current time Chronic Hypoxic Respiratory Failure with Home O2 - Continue Duonebs DVT Prophylaxis: - TEDs/SCDs - Will withhold chemical prophylaxis at this time due GI bleed Code Status: - FULL RESUSCITATION Disposition: - Return home when medically stable - PCP established - appointment June 10, 2016 at 1330 - F/U CT Abd/Pelvis in 6 months to evaluated stabilization of CT findings Continued [facility] stay due to: inadequate po fluid intake Discharge planning: home
[2016-05-27 14:53] LABS: BUN/CREATININE RATIO 10.5 (10-20); CALCIUM 8.8 mg/dl (8.5-10.1); CREATININE 2.4 mg/dl (0.60-1.40); POTASSIUM 3.5 mmol/L (3.5-5.1)
--- NOTE | 2016-05-27 15:34 | Endo History and Physical ---
History & Physical Date of Service: May 27, 2016. Chief Complaint: Coffee ground emesis Referring Physician: Dr Christianson History of Present Illness For EGD Past Surgical History Hx Cardiac Surgery: No Hx Abdominal Surgery: No Hx Post-Op Nausea and Vomiting: No Hx Cancer Surgery: Yes (Bladder) Hx Thoracic Surgery: No Hx Orthopedic: No Hx Urinary Tract Surgery: Yes Social History Smoking Status: Unknown if Ever Smoked Smokeless Tobacco Use: No Hx Substance Use: No Hx Alcohol Use: No Allergies Coded Allergies: Aspirin (Unverified Allergy, Unknown, caused a GI Bleed, 05/25/16) Patient is currently taking aspirin Current Medications Reported Home Medications Medications Dose Route/Sig Max Daily Dose Days Date Category Dose Instructions Nyquil Severe Cold/Flu 5-6.25-10-325 mg/15Ml (Csdcjnfdutsbt-Tnnvowavui-Clvkd) 1 Liq Liq 05/25/16 Reported takes every night B12 (Cyanocobalamin) 1,000 Mcg Tab 05/25/16 Reported Vitamin D 77376 Unit (Ergocalciferol) 50,000 Unit Cap 1 Cap PO WK 28 05/25/16 Reported Vitamin C (Vitamins C & E) 1 Cap Cap 05/25/16 Reported Aspirin Ec (Aspirin) 81 Mg Tab 81 Mg PO DAILY 05/25/16 Reported Lipitor (Atorvastatin Calcium) 20 Mg Tab 1 Tab PO HS 30 05/25/16 Reported Phoslo 667 Mg (Calcium Acetate) 667 Mg Cap 2 Cap PO TID 30 05/25/16 Reported [place] 5MG/325MG (Acetaminophen/Hydrocodone Bitart) Tab 1 Tablet PO PRN 05/25/16 Reported PRN PAIN Toradol (Ketorolac Tromethamine) 10 Mg Tab 10 Mg PO PRN 05/25/16 Reported Vital Signs Weight (Kilograms): 70.800 Height (Feet): 6 Height (Inches): 0.00 Date Time Temp Pulse Resp B/P Pulse Ox O2 Delivery O2 Flow Rate FiO2 05/27/16 15:20 36.9 89 24 108/64 94 Nasal Cannula 3 05/27/16 13:45 73 106/64 05/27/16 13:30 86 110/69 05/27/16 13:15 37.0 77 16 99/59 95 Nasal Cannula 3.0 05/27/16 13:15 90 88/62 05/27/16 13:00 96 99/59 2/10/17 12:45 89 101/67 05/27/16 12:30 93 93/66 05/27/16 12:15 105 81/54 05/27/16 12:02 Nasal Cannula 3.0 05/27/16 12:00 74 102/65 05/27/16 11:45 79 104/62 05/27/16 11:31 37.0 77 16 92/64 95 05/27/16 11:30 85 88/63 05/27/16 11:15 86 107/69 05/27/16 11:12 95 14 92 Nasal Cannula 4.0 05/27/16 11:00 82 92/64 05/27/16 10:45 82 100/66 05/27/16 10:30 82 111/64 05/27/16 10:15 61 106/64 05/27/16 10:05 82 104/60 05/27/16 09:55 37.0 82 118/67 05/27/16 08:05 Nasal Cannula 3.0 05/27/16 08:03 36.9 76 16 101/60 98 05/27/16 07:12 95 14 93 Nasal Cannula 4.0 05/27/16 04:00 Nasal Cannula 3.0 05/27/16 03:26 36.6 85 22 105/63 97 Nasal Cannula 3.0 05/26/16 23:59 Nasal Cannula 3.0 05/26/16 23:39 37.0 87 22 101/56 98 Nasal Cannula 3.0 05/26/16 20:00 Nasal Cannula 3.0 05/26/16 19:37 36.6 90 22 106/70 99 Nasal Cannula 4.0 05/26/16 19:17 95 14 92 Nasal Cannula 4.0 05/26/16 16:50 95 95 Nasal Cannula 3.0 05/26/16 16:00 Nasal Cannula 2.0 Physical Exam General Appearance: WD/WN Respiratory/Chest: Respiratory effort: no dyspnea Cardiovascular: Heart Auscultation: RRR Abdomen: Inspection & Palpation: soft Assessment and Plan hematemesis for EGD
[2016-05-27] MEDS ORDERED: KETAMINE HCL INJ 50 MG/ML 10 ML VIAL ONE (15:35)
--- NOTE | 2016-05-27 15:51 | Discharge Instructions ---
Endoscopy Patient Instructions Date / Procedure(s) Performed May 27, 2016. EGD Allergy Information Coded Allergies: Aspirin (Unverified Allergy, Unknown, caused a GI Bleed, 05/25/16) Patient is currently taking aspirin Discharge Date / Findings May 27, 2016. Duodenal ulcer, severe esophagitis Medication Instructions Restart Stopped Medication(s): resume meds Current Inpatient Medications Medications (Trade) Dose Ordered Sig/Edna Route Start Time Stop Time Status Last Admin Dose Admin Ondansetron HCl 4 mg 4 mg Q6H PRN IV 05/25/16 11:45 06/24/16 11:44 05/27/16 07:53 4 MG Piperacillin Sod/ Tazobactam Sod/ Dextrose (Zosyn Iv/D5 100ml) 115 ml @ 28.75 mls/ hr Q12H IV 05/25/16 18:00 06/04/16 17:59 05/27/16 06:09 28.75 MLS/HR Hydromorphone HCl (Dilaudid Inj) 0.5 mg Q4H PRN IV 05/25/16 11:45 06/08/16 11:44 Ioversol (Optiray 320) 125 ml UD PRN IV 05/25/16 12:00 05/29/16 11:59 Piperacillin Sod/ Tazobactam Sod (Consult) 1 ea UD PRN N/A 05/25/16 12:45 06/24/16 12:44 Albuterol/ Ipratropium (Duoneb) 3 ml QIDR INH 05/25/16 16:00 06/24/16 15:59 05/27/16 11:11 3 ML Albuterol/ Ipratropium 3 ml 3 ml Q2H PRN INH 05/25/16 14:00 06/24/16 13:59 Pantoprazole Sodium/Syringe (Protonix Inj/ Syringe) 10 ml @ 5 mls/min DAILY@ IV 05/26/16 08:00 06/25/16 07:59 05/27/16 07:53 5 MLS/MIN Levofloxacin 1 ea 1 ea UD PRN N/A 05/26/16 12:15 06/25/16 12:14 Levofloxacin/Prmx (Levaquin / D5W/ Premixed D5W) 100 ml @ 100 mls/hr Q48H IV 05/28/16 12:00 06/02/16 11:59 Acetaminophen (Tylenol Tab) 650 mg Q6H PRN PO 05/27/16 06:30 06/26/16 06:29 05/27/16 06:36 650 MG Provider Instructions Activity Restrictions - No exercising or heavy lifting for 24 hours. - Do not drink alcohol the day of the procedure. - Do not drive a car or operate machinery until the day after the procedure. - Do not make any important decisions or sign important papers in 24 hours after the procedure. Following Day: - Return to full activity which may include returning to work/school. Diet Start your diet with liquids and light foods (jello, soup, juice, toast). Then eat your usual diet if not nauseated. Treatment For Common After Affects For mild abdominal pain, bloating, or excessive gas: - Rest - Eat lightly - Lie on right side Follow-Up Information Follow-up with as scheduled Anesthesia Information What You Should Know You have had a procedure that required some medicine to reduce anxiety and discomfort. This treatment is called moderate sedation. After receiving the treatment, you may be sleepy, but you will be able to breathe on your own. The effects of the treatment may last for several hours. Follow these instructions along with Activity/Diet recommendations noted above: * Do NOT do anything where dizziness or clumsiness would be dangerous. * Rest quietly at home today, then you can be up and about tomorrow. * Have a responsible person stay with you the rest of today. * You may have had an I.V. today. If so, you may take the dressing off later today. Recommendations Call your doctor if: * Trouble breathing * Continuous vomiting for more than 24 hours * Temperature above 101 degrees * Severe abdominal pain or bloating * Pain not relieved by pain medicine ordered * There is increased drainage or redness from any incision * A large amount of rectal bleeding greater than 2-3 tablespoons. (If you had a polyp/s removed or have hemorrhoids, a small amount of blood - from the rectum is to be expected.) * You have any unanswered questions or concerns. IN THE EVENT OF A SERIOUS EMERGENCY, GO TO THE NEAREST EMERGENCY ROOM Your discharge instructions were prepared by provider Prasad Hart. Patient Instructions Signature Page Marito Ng Patient (or Guardian) Signature/Date: I have read and understand the instructions given to me by my caregivers. Caregiver/RN/Doctor Signature/Date: The above-named patient and/or guardian has received patient instructions on this date. + Original Patient Signature Page (only) stays with chart. Please make copy for patient.
--- NOTE | 2016-05-27 15:58 | GI REPORT ---
Procedure Date: 05/27/2016 3:41 PM Procedure: Upper GI endoscopy Indications: Coffee-ground emesis Medicines: Propofol total dose 40 mg IV, Neosynephrine 100 mcg IV, Ketamine 20 mg IV Complications: No immediate complications. Estimated Blood Loss: Estimated blood loss: none. Procedure: Pre-Anesthesia Assessment: - Prior to the procedure, a History and Physical was performed, and patient medications, allergies and sensitivities were reviewed. The patient's tolerance of previous anesthesia was reviewed. - The risks and benefits of the procedure and the sedation options and risks were discussed with the patient. All questions were answered and informed consent was obtained. After obtaining informed consent, the endoscope was passed under direct vision. Throughout the procedure, the patient's blood pressure, pulse, and oxygen saturations were monitored continuously. The Scope was introduced through the mouth, and advanced to the second part of duodenum. The upper GI endoscopy was accomplished without difficulty. The patient tolerated the procedure well. Findings: LA Grade D (one or more mucosal breaks involving at least 75% of esophageal circumference) esophagitis with no bleeding was found 20 cm from the incisors. The entire examined stomach was normal. One non-bleeding cratered duodenal ulcer with no stigmata of bleeding was found in the duodenal bulb. The lesion was 20 mm in largest dimension. Impression: - LA Grade D reflux esophagitis. - Normal stomach. - One non-bleeding duodenal ulcer with no stigmata of bleeding. - No specimens collected. Recommendation: - [facility] patient [facility] for [facility] care. - Use sucralfate suspension 1 gram PO QID for 2 months. - Perform an H. pylori stool antigen (HpSA) test at the next available appointment. Prasad Hatr M.D. Prasad Hart MD 05/27/2016 3:59:02 PM This report has been signed electronically. Note Initiated On: 05/27/2016 3:41 PM I attest to the content of the Intraoperative Record and orders documented therein, exceptions below
--- NOTE | 2016-05-27 16:15 | Anesthesiology Progress Note ---
Anesthesia Post Op Note Date & Time May 27, 2016 at 16:14 Vital Signs Pain Intensity: 0.0 Vital Signs Past 12 Hours Date Time Temp Pulse Resp B/P Pulse Ox O2 Delivery O2 Flow Rate FiO2 05/27/16 15:56 94 24 115/61 99 Nasal Cannula 8 Mask 05/27/16 15:20 36.9 89 24 108/64 94 Nasal Cannula 3 05/27/16 13:45 73 106/64 05/27/16 13:30 86 110/69 05/27/16 13:15 37.0 77 16 99/59 95 Nasal Cannula 3.0 05/27/16 13:15 90 88/62 05/27/16 13:00 96 99/59 05/27/16 12:45 89 101/67 05/27/16 12:30 93 93/66 05/27/16 12:15 105 81/54 05/27/16 12:02 Nasal Cannula 3.0 05/27/16 12:00 74 102/65 05/27/16 11:45 79 104/62 05/27/16 11:31 37.0 77 16 92/64 95 05/27/16 11:30 85 88/63 05/27/16 11:15 86 107/69 05/27/16 11:12 95 14 92 Nasal Cannula 4.0 05/27/16 11:00 82 92/64 05/27/16 10:45 82 100/66 05/27/16 10:30 82 111/64 05/27/16 10:15 61 106/64 05/27/16 10:05 82 104/60 05/27/16 09:55 37.0 82 118/67 05/27/16 08:05 Nasal Cannula 3.0 05/27/16 08:03 36.9 76 16 101/60 98 05/27/16 07:12 95 14 93 Nasal Cannula 4.0 Notes Mental Status: alert / awake / arousable, participated in evaluation Pt Amnestic to Procedure: Yes Nausea / Vomiting: adequately controlled Pain: adequately controlled Airway Patency, RR, SpO2: stable & adequate BP & HR: stable & adequate Hydration State: stable & adequate Anesthetic Complications: no major complications apparent Pt doing well.
[2016-05-27] MEDS: SUCRALFATE 1 GM/10 ML UDC PO SCH ×2 (17:09→21:15)
[2016-05-28] VITALS (8 sets, daily range): BP systolic 93–118; BP diastolic 53–69; PULSE 80–87; TEMP 36.6–36.7; O2SAT 90–98
[2016-05-28] MEDS: ACETAMINOPHEN 325 MG TAB PO PRN (05:53)
[2016-05-28] MEDS: PIPERACILL/TAZOBAC IV 3.375 GM in DEXTROSE 5% 100ML 100 ML IV SCH ×2 (05:54→17:16)
[2016-05-28 06:56] LABS: BASO % 0.3 %; BASO ABS # 0.05 K/uL (0-0.2); COMPLETE YES; EOS % 1.2 %; HEMATOCRIT 26.4 % (42-52); IG% 8.1 %; LYMPH % 9.9 %; LYMPH ABS # 1.85 K/uL (1.2-3.4); MEAN CELL VOLUME 94.3 fL (80-100); MEAN CORPUSCULAR HEMOGLOBIN 29.3 pg (25-34); MEAN CORPUSCULAR HGB CONC 31.1 g/dl (32-36); MONO % 6.6 %; NEUT % 73.9 %; PLATELET COUNT 245 K/uL (130-400)
[2016-05-28] MEDS: ALBUT/IPRATROP 3MG/0.5MG NEB 3 ML VIAL INH SCH (07:14)
[2016-05-28] MEDS: PANTOprazole INJ 40 MG in SYRINGE 0 ML IV SCH ×2 (08:25→19:42)
[2016-05-28] MEDS: SUCRALFATE 1 GM/10 ML UDC PO SCH ×4 (08:25→19:41)
--- NOTE | 2016-05-28 09:33 | Nephrology Progress Note ---
Nephrology Progress Note Date of Service May 28, 2016. Chief Complaint ESRD on HD Subjective No acute events overnight. Mr. Ng is sitting comfortably in bedside chair. He denies abdominal pain. He denies nausea or vomiting. No melena. EGD notable for large duodenal ulcer. Hemodialysis performed yesterday without complications. Net UF 1 kg. Review of Systems A complete review of systems was performed. Pertinent positives are noted above. All other systems are negative. Vital Signs Last 8 Hrs Date Time Temp Pulse Resp B/P Pulse Ox O2 Delivery O2 Flow Rate FiO2 05/28/16 09:10 80 12 96 Nasal Cannula 3.0 05/28/16 08:06 Nasal Cannula 3.0 05/28/16 08:00 36.6 81 20 93/53 94 Nasal Cannula 3.0 05/28/16 07:15 87 14 96 Nasal Cannula 3.0 05/28/16 04:00 Nasal Cannula 3.0 05/28/16 03:37 36.7 86 20 106/62 91 Nasal Cannula 3.0 I & O 24-Hour Column 05/28/16 07:59 Intake Total 1693 ml Output Total 1420 ml Balance 273 ml Last Recorded Weight Weight (Kilograms): 69.200 Physical Exam General Appearance: no apparent distress, + thin Head: normocephalic, atraumatic Eyes: normal inspection, sclerae normal ENT: normal ENT inspection, pharynx normal, + pertinent finding (oral mucosa dry) Neck: supple, no JVD, + pertinent finding (RIJ TDC) Respiratory/Chest: lungs clear, no respiratory distress, no accessory muscle use Cardiovascular: regular rate, rhythm, + systolic murmur Back: normal inspection Abdomen/GI: non tender, soft Extremities/Musculoskelatal: normal inspection, no pedal edema Neurologic/Psych: alert, oriented x 3 Family History Patient reports no known family medical history. Social History Smokeless Tobacco Use: No Alcohol Use: none Drug Use: none Marital Status: Laboratory Results Past 24 Hours 05/28/16 06:05 Red Blood Count 2.80, Mean Corpuscular Volume 94.3, Mean Corpuscular Hemoglobin 29.3, Mean Corpuscular Hemoglobin Concent 31.1, Mean Platelet Volume 10.0, Neutrophils (%) (Auto) 73.9, Lymphocytes (%) (Auto) 9.9, Monocytes (%) (Auto) 6.6, Eosinophils (%) (Auto) 1.2, Basophils (%) (Auto) 0.3, Neutrophils # (Auto) 13.75, Lymphocytes # (Auto) 1.85, Monocytes # (Auto) 1.22, Eosinophils # (Auto) 0.22, Basophils # (Auto) 0.05 05/27/16 14:20 Test 05/27/16 14:20 05/28/16 04:44 05/28/16 06:05 Anion Gap 10.0 mmol/L (3-11) Est Creatinine Clear Calc Drug Dose 25.8 ml/min Estimated GFR () 29.1 Estimated GFR (Non- 25.1 BUN/Creatinine Ratio 10.5 (10-20) Calcium Level 8.8 mg/dl (8.5-10.1) White Blood Count 18.60 K/uL (4.8-10.8) Red Blood Count 2.80 M/uL (4.7-6.1) Hemoglobin 8.2 g/dL (14.0-18.0) Hematocrit 26.4 % (42-52) Mean Corpuscular Volume 94.3 fL (80-100) Mean Corpuscular Hemoglobin 29.3 pg (25-34) Mean Corpuscular Hemoglobin Concent 31.1 g/dl (32-36) Platelet Count 245 K/uL (130-400) Mean Platelet Volume 10.0 fL (7.4-10.4) Neutrophils (%) (Auto) 73.9 % Lymphocytes (%) (Auto) 9.9 % Monocytes (%) (Auto) 6.6 % Eosinophils (%) (Auto) 1.2 % Basophils (%) (Auto) 0.3 % Neutrophils # (Auto) 13.75 K/uL (1.4-6.5) Lymphocytes # (Auto) 1.85 K/uL (1.2-3.4) Monocytes # (Auto) 1.22 K/uL (0.11-0.59) Eosinophils # (Auto) 0.22 K/uL (0-0.5) Basophils # (Auto) 0.05 K/uL (0-0.2) RDW Standard Deviation 54.9 fL (36.4-46.3) RDW Coefficient of Variation 16.0 % (11.5-14.5) Immature Granulocyte % (Auto) 8.1 % Immature Granulocyte # (Auto) 1.51 K/uL (0.00-0.02) Nucleated RBC Absolute Count (auto) 0.12 K/uL (0-0) Nucleated Red Blood Cells % 0.7 % Red Blood Cell Morphology Unremarkable Allergies Coded Allergies: Aspirin (Unverified Allergy, Unknown, caused a GI Bleed, 05/25/16) Patient is currently taking aspirin Medications Current Inpatient Medications Medications (Trade) Dose Ordered Sig/Edna Route Start Time Stop Time Status Last Admin Dose Admin Ondansetron HCl 4 mg 4 mg Q6H PRN IV 05/25/16 11:45 06/24/16 11:44 05/27/16 07:53 4 MG Piperacillin Sod/ Tazobactam Sod/ Dextrose (Zosyn Iv/D5 100ml) 115 ml @ 28.75 mls/ hr Q12H IV 05/25/16 18:00 06/04/16 17:59 05/28/16 05:54 28.75 MLS/HR Hydromorphone HCl (Dilaudid Inj) 0.5 mg Q4H PRN IV 05/25/16 11:45 06/08/16 11:44 Ioversol (Optiray 320) 125 ml UD PRN IV 05/25/16 12:00 05/29/16 11:59 Piperacillin Sod/ Tazobactam Sod (Consult) 1 ea UD PRN N/A 05/25/16 12:45 06/24/16 12:44 Albuterol/ Ipratropium (Duoneb) 3 ml QIDR INH 05/25/16 16:00 06/24/16 15:59 05/28/16 07:14 3 ML Albuterol/ Ipratropium 3 ml 3 ml Q2H PRN INH 05/25/16 14:00 06/24/16 13:59 Pantoprazole Sodium/Syringe (Protonix Inj/ Syringe) 10 ml @ 5 mls/min DAILY@09,21 IV 05/26/16 08:00 06/25/16 07:59 05/28/16 08:25 5 MLS/MIN Levofloxacin 1 ea 1 ea UD PRN N/A 05/26/16 12:15 06/25/16 12:14 Levofloxacin/Prmx (Levaquin / D5W/ Premixed D5W) 100 ml @ 100 mls/hr Q48H IV 05/28/16 12:00 06/02/16 11:59 Acetaminophen (Tylenol Tab) 650 mg Q6H PRN PO 05/27/16 06:30 06/26/16 06:29 05/28/16 05:53 650 MG Sucralfate (Carafate Susp) 1 gm QID PO 05/27/16 17:00 06/26/16 16:59 05/28/16 08:25 1 GM Albuterol/ Ipratropium (Combivent Respimat Inh) 1 puffs QID INH 05/28/16 13:00 06/27/16 12:59 UNV Impression (1) End stage chronic kidney disease (2) Dialysis patient (3) CHF (congestive heart failure) (4) Bladder cancer (5) Pneumonia (6) Sepsis Mr. Marito Ng is a 75-year-old male with ESRD on HD MWF admitted with duodenal obstruction. EGD yesterday notable for duodenal ulcer. Recommendations -- HD MWF -- AM metabolic profile pending -- Monitor H/H -- Check iron profile with AM labs tomorrow -- Medications appropriate for renal function
[2016-05-28] MEDS: LEVOFLOXACIN 500MG / D5W IV SCH (12:00)
[2016-05-28] MEDS: IPRATROPIUM BROMIDE/ALBUTEROL respimat INH INH SCH ×3 (12:00→19:41)
[2016-05-28 12:51] LABS: BUN/CREATININE RATIO 8.8 (10-20); CALCIUM 8.8 mg/dl (8.5-10.1); CREATININE 4.7 mg/dl (0.60-1.40); MAGNESIUM 2.3 mg/dl (1.8-2.4); POTASSIUM 3.8 mmol/L (3.5-5.1)
--- NOTE | 2016-05-28 12:59 | Progress Note ---
Subjective Date of Service: May 28, 2016. 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, review of inpatient medication list Pain: no pain today PO Intake: advanced to low fiber Voiding: no voiding problems (conduit, not much out) patient feeling very well today, OOB to the chair for first time discussed findings of duodenal ulcer on EGD as well as esophagitis no dyspnea, minimal cough, no chest pain, no abdominal pain and he is tolerating diet Problem List Medical Problems: (1) Elevated white blood cell count Status: Acute (2) Hypotension Status: Acute (3) Hypoxia Status: Acute (4) Pneumonia Status: Acute (5) Sepsis Status: Acute Review of Systems Constitutional: + fatigue, + weakness Respiratory: + dyspnea on exertion All Other Systems: Reviewed and Negative Medications Current Inpatient Medications Medications (Trade) Dose Ordered Sig/Edna Route Start Time Stop Time Status Last Admin Dose Admin Ondansetron HCl 4 mg 4 mg Q6H PRN IV 05/25/16 11:45 06/24/16 11:44 05/27/16 07:53 4 MG Piperacillin Sod/ Tazobactam Sod/ Dextrose (Zosyn Iv/D5 100ml) 115 ml @ 28.75 mls/ hr Q12H IV 05/25/16 18:00 06/04/16 17:59 05/28/16 05:54 28.75 MLS/HR Hydromorphone HCl (Dilaudid Inj) 0.5 mg Q4H PRN IV 05/25/16 11:45 06/08/16 11:44 Ioversol (Optiray 320) 125 ml UD PRN IV 05/25/16 12:00 05/29/16 11:59 Piperacillin Sod/ Tazobactam Sod 1 ea 1 ea UD PRN N/A 05/25/16 12:45 06/24/16 12:44 Pantoprazole Sodium/Syringe (Protonix Inj/ Syringe) 10 ml @ 5 mls/min DAILY@09,21 IV 05/26/16 08:00 06/25/16 07:59 05/28/16 08:25 5 MLS/MIN Levofloxacin 1 ea 1 ea UD PRN N/A 05/26/16 12:15 06/25/16 12:14 Levofloxacin/Prmx (Levaquin / D5W/ Premixed D5W) 100 ml @ 100 mls/hr Q48H IV 05/28/16 12:00 06/02/16 11:59 Acetaminophen (Tylenol Tab) 650 mg Q6H PRN PO 05/27/16 06:30 06/26/16 06:29 05/28/16 05:53 650 MG Sucralfate (Carafate Susp) 1 gm QID PO 05/27/16 17:00 06/26/16 16:59 05/28/16 08:25 1 GM Albuterol/ Ipratropium (Combivent Respimat Inh) 1 puffs QIDR INH 05/28/16 12:00 06/27/16 11:59 Objective Vital Signs Date Time Temp Pulse Resp B/P Pulse Ox O2 Delivery O2 Flow Rate FiO2 05/28/16 12:05 Nasal Cannula 3.0 05/28/16 11:58 36.7 81 18 103/61 96 Nasal Cannula 3.0 05/28/16 09:10 80 12 96 Nasal Cannula 3.0 05/28/16 08:06 Nasal Cannula 3.0 05/28/16 08:00 36.6 81 20 93/53 94 Nasal Cannula 3.0 05/28/16 07:15 87 14 96 Nasal Cannula 3.0 05/28/16 04:00 Nasal Cannula 3.0 05/28/16 03:37 36.7 86 20 106/62 91 Nasal Cannula 3.0 05/27/16 23:59 Nasal Cannula 3.0 05/27/16 23:37 36.6 92 24 94/58 90 Nasal Cannula 3.0 05/27/16 20:00 Nasal Cannula 3.0 05/27/16 19:38 36.7 87 18 98/59 95 Nasal Cannula 3.0 05/27/16 19:09 90 14 95 Nasal Cannula 3.0 05/27/16 17:05 37.0 21 101/60 95 05/27/16 16:53 Nasal Cannula 3.0 05/27/16 16:24 91 22 111/60 97 Nasal Cannula 3 Mask 05/27/16 16:13 88 22 107/59 95 Nasal Cannula 3 Mask 05/27/16 15:56 94 24 115/61 99 Nasal Cannula 8 Mask 05/27/16 15:20 36.9 89 24 108/64 94 Nasal Cannula 3 05/27/16 14:20 36.9 83 113/66 05/27/16 13:45 73 106/64 05/27/16 13:30 86 110/69 05/27/16 13:15 37.0 77 16 99/59 95 Nasal Cannula 3.0 05/27/16 13:15 90 88/62 05/27/16 13:00 96 99/59 Physical Exam General Appearance: WD/WN, no apparent distress Eyes: normal inspection, EOMI, sclerae normal ENT: normal ENT inspection, hearing grossly normal, pharynx normal Neck: supple, no adenopathy, no JVD, trachea midline Respiratory/Chest: chest non-tender, lungs clear, normal breath sounds, no respiratory distress, no accessory muscle use Cardiovascular: regular rate, rhythm, no edema, no gallop, no JVD, no murmur Abdomen: normal bowel sounds, non tender, soft, no organomegaly Extremities: normal range of motion, non-tender, normal inspection, no pedal edema, no calf tenderness Neurologic/Psychiatric: 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, no motor/sensory deficits, alert, normal mood/affect, oriented x 3 Laboratory Results Last 24 Hours Test 05/27/16 14:20 05/28/16 06:05 05/28/16 12:01 Sodium Level 141 mmol/L 138 mmol/L Potassium Level 3.5 mmol/L 3.8 mmol/L Chloride Level 98 mmol/L 96 mmol/L Carbon Dioxide Level 33 mmol/L 31 mmol/L Anion Gap 10.0 mmol/L 11.0 mmol/L Blood Urea Nitrogen 25 mg/dl 41 mg/dl Creatinine 2.40 mg/dl 4.70 mg/dl Est Creatinine Clear Calc Drug Dose 25.8 ml/min 12.9 ml/min Estimated GFR () 29.1 12.9 Estimated GFR (Non- 25.1 11.1 BUN/Creatinine Ratio 10.5 8.8 Random Glucose 92 mg/dl 110 mg/dl Calcium Level 8.8 mg/dl 8.8 mg/dl White Blood Count 18.60 K/uL Red Blood Count 2.80 M/uL Hemoglobin 8.2 g/dL Hematocrit 26.4 % Mean Corpuscular Volume 94.3 fL Mean Corpuscular Hemoglobin 29.3 pg Mean Corpuscular Hemoglobin Concent 31.1 g/dl Platelet Count 245 K/uL Mean Platelet Volume 10.0 fL Neutrophils (%) (Auto) 73.9 % Lymphocytes (%) (Auto) 9.9 % Monocytes (%) (Auto) 6.6 % Eosinophils (%) (Auto) 1.2 % Basophils (%) (Auto) 0.3 % Neutrophils # (Auto) 13.75 K/uL Lymphocytes # (Auto) 1.85 K/uL Monocytes # (Auto) 1.22 K/uL Eosinophils # (Auto) 0.22 K/uL Basophils # (Auto) 0.05 K/uL RDW Standard Deviation 54.9 fL RDW Coefficient of Variation 16.0 % Immature Granulocyte % (Auto) 8.1 % Immature Granulocyte # (Auto) 1.51 K/uL Nucleated RBC Absolute Count (auto) 0.12 K/uL Nucleated Red Blood Cells % 0.7 % Red Blood Cell Morphology Unremarkable Magnesium Level 2.3 mg/dl Assessment and Plan - Severe sepsis due to LLL pneumonia: by definition he has HCAP since he was hospitalized recently at [facility] treat with Zosyn and Vancomycin for 7 days total, nebulizers, follow CBC (18 today) severe sepsis resolved, vitals stable, afebrile, WBC continues to trend down , continue antibiotics - Upper GI bleed due to duodenal ulcer and esophagitis: EGD on 05/27 showed large 2cm duodenal ulcer, no active bleeding Protonix IV, Carafate QID, advance diet to low fiber today H pylori stool antigen sent, this is reference lab - Acute hypoxic respiratory failure: due to pneumonia, down to 3L NC, continues to improve, no respiratory distress - SVT: could be atrial fibrillation or PAC's, no known h/o afib rates have been normal since blood transfusion, again normal today - Acute blood loss anemia: transfuse as needed, Hb 8.2 today, transfuse if < 7.0 or if hypotensive - ESRD: consult nephrology for orders, HD 05/27, tolerated well Plan: continue telemetry today, advance diet, follow labs in the AM, increase activity and PT/OT evaluations Continued [facility] stay due to: inadequate po fluid intake Discharge planning: home
--- NOTE | 2016-05-28 14:10 | Gastroenterology Progress Note ---
Progress Note Date of Service: May 28, 2016 Subjective Pt evaluation today including: conversation w/ patient, conversation w/ family (sons and daughters), physical exam, chart review, review of studies, review of inpatient medication list CC f/u GI bleeding, upper GI obstruction HPI Pt just ate first solid meal. NO abd pain, no n/v, no stools yet this admit. Review of Systems Respiratory: No shortness of breath Cardiac: No chest pain Medications Current Inpatient Medications Medications (Trade) Dose Ordered Sig/Edna Route Start Time Stop Time Status Last Admin Dose Admin Ondansetron HCl 4 mg 4 mg Q6H PRN IV 05/25/16 11:45 06/24/16 11:44 05/27/16 07:53 4 MG Piperacillin Sod/ Tazobactam Sod/ Dextrose (Zosyn Iv/D5 100ml) 115 ml @ 28.75 mls/ hr Q12H IV 05/25/16 18:00 06/04/16 17:59 05/28/16 05:54 28.75 MLS/HR Hydromorphone HCl (Dilaudid Inj) 0.5 mg Q4H PRN IV 05/25/16 11:45 06/08/16 11:44 Ioversol (Optiray 320) 125 ml UD PRN IV 05/25/16 12:00 05/29/16 11:59 Piperacillin Sod/ Tazobactam Sod 1 ea 1 ea UD PRN N/A 05/25/16 12:45 06/24/16 12:44 Pantoprazole Sodium/Syringe (Protonix Inj/ Syringe) 10 ml @ 5 mls/min DAILY@09,21 IV 05/26/16 08:00 06/25/16 07:59 05/28/16 08:25 5 MLS/MIN Levofloxacin 1 ea 1 ea UD PRN N/A 05/26/16 12:15 06/25/16 12:14 Levofloxacin/Prmx (Levaquin / D5W/ Premixed D5W) 100 ml @ 100 mls/hr Q48H IV 05/28/16 12:00 06/02/16 11:59 05/28/16 12:00 100 MLS/HR Acetaminophen (Tylenol Tab) 650 mg Q6H PRN PO 05/27/16 06:30 06/26/16 06:29 05/28/16 05:53 650 MG Sucralfate (Carafate Susp) 1 gm QID PO 05/27/16 17:00 06/26/16 16:59 05/28/16 13:00 1 GM Albuterol/ Ipratropium (Combivent Respimat Inh) 1 puffs QIDR INH 05/28/16 12:00 06/27/16 11:59 Objective Vital Signs Date Time Temp Pulse Resp B/P Pulse Ox O2 Delivery O2 Flow Rate FiO2 05/28/16 12:05 Nasal Cannula 3.0 05/28/16 11:58 36.7 81 18 103/61 96 Nasal Cannula 3.0 05/28/16 09:10 80 12 96 Nasal Cannula 3.0 05/28/16 08:06 Nasal Cannula 3.0 05/28/16 08:00 36.6 81 20 93/53 94 Nasal Cannula 3.0 05/28/16 07:15 87 14 96 Nasal Cannula 3.0 05/28/16 04:00 Nasal Cannula 3.0 05/28/16 03:37 36.7 86 20 106/62 91 Nasal Cannula 3.0 05/27/16 23:59 Nasal Cannula 3.0 05/27/16 23:37 36.6 92 24 94/58 90 Nasal Cannula 3.0 05/27/16 20:00 Nasal Cannula 3.0 05/27/16 19:38 36.7 87 18 98/59 95 Nasal Cannula 3.0 05/27/16 19:09 90 14 95 Nasal Cannula 3.0 05/27/16 17:05 37.0 21 101/60 95 05/27/16 16:53 Nasal Cannula 3.0 05/27/16 16:24 91 22 111/60 97 Nasal Cannula 3 Mask 05/27/16 16:13 88 22 107/59 95 Nasal Cannula 3 Mask 05/27/16 15:56 94 24 115/61 99 Nasal Cannula 8 Mask 05/27/16 15:20 36.9 89 24 108/64 94 Nasal Cannula 3 05/27/16 14:20 36.9 83 113/66 Physical Exam General Appearance: WD/WN, no apparent distress Respiratory/Chest: normal breath sounds, no respiratory distress Cardiovascular: regular rate, rhythm Abdomen: normal bowel sounds, non tender, soft, no organomegaly Laboratory Results Last 24 Hours Test 05/27/16 14:20 05/28/16 06:05 05/28/16 12:01 Sodium Level 141 mmol/L 138 mmol/L Potassium Level 3.5 mmol/L 3.8 mmol/L Chloride Level 98 mmol/L 96 mmol/L Carbon Dioxide Level 33 mmol/L 31 mmol/L Anion Gap 10.0 mmol/L 11.0 mmol/L Blood Urea Nitrogen 25 mg/dl 41 mg/dl Creatinine 2.40 mg/dl 4.70 mg/dl Est Creatinine Clear Calc Drug Dose 25.8 ml/min 12.9 ml/min Estimated GFR () 29.1 12.9 Estimated GFR (Non- 25.1 11.1 BUN/Creatinine Ratio 10.5 8.8 Random Glucose 92 mg/dl 110 mg/dl Calcium Level 8.8 mg/dl 8.8 mg/dl White Blood Count 18.60 K/uL Red Blood Count 2.80 M/uL Hemoglobin 8.2 g/dL Hematocrit 26.4 % Mean Corpuscular Volume 94.3 fL Mean Corpuscular Hemoglobin 29.3 pg Mean Corpuscular Hemoglobin Concent 31.1 g/dl Platelet Count 245 K/uL Mean Platelet Volume 10.0 fL Neutrophils (%) (Auto) 73.9 % Lymphocytes (%) (Auto) 9.9 % Monocytes (%) (Auto) 6.6 % Eosinophils (%) (Auto) 1.2 % Basophils (%) (Auto) 0.3 % Neutrophils # (Auto) 13.75 K/uL Lymphocytes # (Auto) 1.85 K/uL Monocytes # (Auto) 1.22 K/uL Eosinophils # (Auto) 0.22 K/uL Basophils # (Auto) 0.05 K/uL RDW Standard Deviation 54.9 fL RDW Coefficient of Variation 16.0 % Immature Granulocyte % (Auto) 8.1 % Immature Granulocyte # (Auto) 1.51 K/uL Nucleated RBC Absolute Count (auto) 0.12 K/uL Nucleated Red Blood Cells % 0.7 % Red Blood Cell Morphology Unremarkable Magnesium Level 2.3 mg/dl Assessment and Plan Coffee ground emesis-from esophagitis and duodenal ulcer--resolved grade D esophagitis--PPI bid for 6 weeks and will need to be on PPI chronically Duodenal ulcer causing partial obstruction--ppi, check stool for H.pylori acute blood loss anemia--transfuse prn--stable. abd pain--upper per patient--resolved thickened esophagus on CT---esophagitis on EGD Dilated duodenum and stomach on CT-- duodenal obstruction from Duodenal ulcer- -clinically resolved pancreas lesion---outpt EUS adrenal lesions per hospitalist COPD/pneumonia, elevated BNP per hospitalist Stable from GI standpoint. When other medical problems stable could be DCed.
[2016-05-29 03:45] VITALS: BP 112/72; PULSE 82; TEMP 36.8; O2SAT 96
[2016-05-29] MEDS: PIPERACILL/TAZOBAC IV 3.375 GM in DEXTROSE 5% 100ML 100 ML IV SCH ×2 (06:05→19:09)
[2016-05-29 06:41] LABS: HEMATOCRIT 23.8 % (42-52); MEAN CELL VOLUME 95.2 fL (80-100); MEAN CORPUSCULAR HGB CONC 31.5 g/dl (32-36); MEAN PLATELET VOLUME 9.7 fL (7.4-10.4); PLATELET COUNT 277 K/uL (130-400); WHITE BLOOD COUNT 14.34 K/uL (4.8-10.8)
[2016-05-29 07:30] LABS: BASO % 0.1 %; BASO ABS # 0.02 K/uL (0-0.2); COMPLETE YES; EOS % 2.6 %; IG% 7.9 %; LYMPH ABS # 1.58 K/uL (1.2-3.4); MONO % 4.3 %; NEUT % 74.1 %; POLYCHROMASIA 1+
[2016-05-29 07:41] LABS: BUN/CREATININE RATIO 8.1 (10-20); CALCIUM 8.3 mg/dl (8.5-10.1); CREATININE 6.4 mg/dl (0.60-1.40); FERRITIN 6812.8 ng/ml (8.0-388.0); MAGNESIUM 2.1 mg/dl (1.8-2.4); PHOSPHORUS 5.2 mg/dl (2.5-4.9); POTASSIUM 3.7 mmol/L (3.5-5.1)
[2016-05-29] MEDS: IPRATROPIUM BROMIDE/ALBUTEROL respimat INH INH SCH ×4 (08:16→21:31)
[2016-05-29] MEDS: PANTOprazole INJ 40 MG in SYRINGE 0 ML IV SCH ×2 (08:17→21:31)
[2016-05-29] MEDS: SUCRALFATE 1 GM/10 ML UDC PO SCH ×4 (08:20→21:31)
--- NOTE | 2016-05-29 10:51 | Progress Note ---
Subjective Date of Service: May 29, 2016. Subjective Pt evaluation today including: conversation w/ patient, physical exam, chart review, lab review, review of studies, review of inpatient medication list Patient seen and evaluated. No acute events overnight. Tolerating solid food diet. No further abdominal pain. Verbalizes no complaints at this time. Will move to medical floor. Problem List Medical Problems: (1) Elevated white blood cell count Status: Acute (2) Hypotension Status: Acute (3) Hypoxia Status: Acute (4) Pneumonia Status: Acute (5) Sepsis Status: Acute Review of Systems Constitutional: No chills, No fever Respiratory: No shortness of breath Cardiac: No chest pain Abdomen: No nausea, No pain, No vomiting Musculoskeletal: No calf pain, No swelling Male : + problem reported (minimal urine output) Medications Current Inpatient Medications Medications (Trade) Dose Ordered Sig/Edna Route Start Time Stop Time Status Last Admin Dose Admin Ondansetron HCl 4 mg 4 mg Q6H PRN IV 05/25/16 11:45 06/24/16 11:44 05/27/16 07:53 4 MG Piperacillin Sod/ Tazobactam Sod/ Dextrose (Zosyn Iv/D5 100ml) 115 ml @ 28.75 mls/ hr Q12H IV 05/25/16 18:00 06/04/16 17:59 05/29/16 06:05 28.75 MLS/HR Hydromorphone HCl (Dilaudid Inj) 0.5 mg Q4H PRN IV 05/25/16 11:45 06/08/16 11:44 Ioversol (Optiray 320) 125 ml UD PRN IV 05/25/16 12:00 05/29/16 11:59 Piperacillin Sod/ Tazobactam Sod 1 ea 1 ea UD PRN N/A 05/25/16 12:45 06/24/16 12:44 Pantoprazole Sodium/Syringe (Protonix Inj/ Syringe) 10 ml @ 5 mls/min DAILY@09,21 IV 05/26/16 08:00 06/25/16 07:59 05/29/16 08:17 5 MLS/MIN Levofloxacin 1 ea 1 ea UD PRN N/A 05/26/16 12:15 06/25/16 12:14 Levofloxacin/Prmx (Levaquin / D5W/ Premixed D5W) 100 ml @ 100 mls/hr Q48H IV 05/28/16 12:00 06/02/16 11:59 05/28/16 12:00 100 MLS/HR Acetaminophen (Tylenol Tab) 650 mg Q6H PRN PO 05/27/16 06:30 06/26/16 06:29 05/28/16 05:53 650 MG Sucralfate (Carafate Susp) 1 gm QID PO 05/27/16 17:00 06/26/16 16:59 05/29/16 08:20 1 GM Albuterol/ Ipratropium (Combivent Respimat Inh) 1 puffs QIDR INH 05/28/16 12:00 06/27/16 11:59 05/29/16 08:16 1 PUFFS Objective Vital Signs Date Time Temp Pulse Resp B/P Pulse Ox O2 Delivery O2 Flow Rate FiO2 05/29/16 04:00 Nasal Cannula 3.0 05/29/16 03:45 36.8 82 19 112/72 96 Nasal Cannula 3.0 05/28/16 23:59 Nasal Cannula 3.0 05/28/16 23:32 36.7 85 20 118/69 98 Nasal Cannula 3.0 05/28/16 20:00 Nasal Cannula 3.0 05/28/16 19:52 36.6 86 25 108/67 98 Nasal Cannula 3.0 05/28/16 16:00 Nasal Cannula 3.0 05/28/16 15:39 36.6 83 21 105/67 90 Nasal Cannula 3.0 05/28/16 12:05 Nasal Cannula 3.0 05/28/16 11:58 36.7 81 18 103/61 96 Nasal Cannula 3.0 Physical Exam General Appearance: WD/WN, no apparent distress Eyes: sclerae normal ENT: hearing grossly normal Neck: supple, no JVD, trachea midline Respiratory/Chest: lungs clear, no respiratory distress, no accessory muscle use, + decreased breath sounds Cardiovascular: regular rate, rhythm, no gallop, no murmur Abdomen: normal bowel sounds, non tender, soft Extremities: no pedal edema, no calf tenderness Neurologic/Psychiatric: alert, oriented x 3 Skin: normal color, warm/dry Laboratory Results Last 24 Hours Test 05/28/16 12:01 05/29/16 06:21 Sodium Level 138 mmol/L 138 mmol/L Potassium Level 3.8 mmol/L 3.7 mmol/L Chloride Level 96 mmol/L 95 mmol/L Carbon Dioxide Level 31 mmol/L 29 mmol/L Anion Gap 11.0 mmol/L 14.0 mmol/L Blood Urea Nitrogen 41 mg/dl 52 mg/dl Creatinine 4.70 mg/dl 6.40 mg/dl Est Creatinine Clear Calc Drug Dose 12.9 ml/min 10.0 ml/min Estimated GFR () 12.9 8.9 Estimated GFR (Non- 11.1 7.7 BUN/Creatinine Ratio 8.8 8.1 Random Glucose 110 mg/dl 101 mg/dl Calcium Level 8.8 mg/dl 8.3 mg/dl Magnesium Level 2.3 mg/dl 2.1 mg/dl White Blood Count 14.34 K/uL Red Blood Count 2.50 M/uL Hemoglobin 7.5 g/dL Hematocrit 23.8 % Mean Corpuscular Volume 95.2 fL Mean Corpuscular Hemoglobin 30.0 pg Mean Corpuscular Hemoglobin Concent 31.5 g/dl Platelet Count 277 K/uL Mean Platelet Volume 9.7 fL Neutrophils (%) (Auto) 74.1 % Lymphocytes (%) (Auto) 11.0 % Monocytes (%) (Auto) 4.3 % Eosinophils (%) (Auto) 2.6 % Basophils (%) (Auto) 0.1 % Neutrophils # (Auto) 10.61 K/uL Lymphocytes # (Auto) 1.58 K/uL Monocytes # (Auto) 0.62 K/uL Eosinophils # (Auto) 0.38 K/uL Basophils # (Auto) 0.02 K/uL RDW Standard Deviation 53.3 fL RDW Coefficient of Variation 15.6 % Immature Granulocyte % (Auto) 7.9 % Immature Granulocyte # (Auto) 1.13 K/uL Nucleated RBC Absolute Count (auto) 0.04 K/uL Nucleated Red Blood Cells % 0.3 % Polychromasia 1+ Basophilic Stippling 1+ Phosphorus Level 5.2 mg/dl Iron Level 42 mcg/dl Total Iron Binding Capacity 131 mcg/dl Transferrin 115 mg/dl Transferrin % Saturation 26 % Ferritin 6812.8 ng/ml Albumin 2.0 gm/dl Assessment and Plan Mr. Ng is a 75 y/o male with PMHx of ESRD on Hemodialysis, HLD, Peptic Ulcer Disease, Bladder CA S/P Cystectomy with Ileal Conduit, COPD on Continuous O2, and Congestive Heart Failure (Unknown Type) who presents to the ED from dialysis due to hypoxia and SOB that started during treatment. CXR reveals LLL infiltrate. Sepsis 2/2 Healthcare Associated Pneumonia: Hospitalized last week in [place] 05/19 Fall: SEPSIS RESOLVED - Zosyn and Levaquin per pharmacy and renal dosing - DAY #5/7 Duodenal Ulcer: No Active Bleeding - Repeat H&H this afternoon - consideration for transfusion at that time as Hgb is 7.5 but hemodynamically stable - H. Pylori send out lab - Protonix 40 mg IV BID and Carafate QID - GI Following - PPI BID x 6 weeks then indefinitely ESRD on Hemodialysis with Ileal Conduit - MWF in [place]: - Nephrology following - dialysis tomorrow Chronic Hypoxic Respiratory Failure with Home O2 - Continue Duonebs - stable DVT Prophylaxis: - TEDs/SCDs - Will withhold chemical prophylaxis at this time due GI bleed Code Status: - FULL RESUSCITATION Disposition: - Return home when medically stable - probable 1-2 days will move to medical floor - PCP established - appointment June 10, 2016 at 1330 - F/U CT Abd/Pelvis in 6 months to evaluated stabilization of CT findings Continued [facility] stay due to: inadequate po fluid intake Discharge planning: home
[2016-05-29 11:36] VITALS: BP 112/72; PULSE 82; TEMP 36.8; O2SAT 96
--- NOTE | 2016-05-29 12:14 | Nephrology Progress Note ---
Nephrology Progress Note Date of Service May 29, 2016. Chief Complaint ESRD on HD Subjective No acute events overnight. No complaints this morning. Denies abdominal pain. Appetite good. Tolerating solid foods. No melena or hematochezia. Denies shortness of breath. Review of Systems A complete review of systems was performed. Pertinent positives are noted above. All other systems are negative. Vital Signs Last 8 Hrs Date Time Temp Pulse Resp B/P Pulse Ox O2 Delivery O2 Flow Rate FiO2 05/29/16 11:36 36.8 82 19 96 3.0 05/29/16 08:00 Nasal Cannula 3.0 I & O 24-Hour Column 05/29/16 07:59 Intake Total 1824 ml Output Total 125 ml Balance 1699 ml Last Recorded Weight Weight (Kilograms): 73.000 Physical Exam General Appearance: no apparent distress, + thin Head: normocephalic, atraumatic Eyes: normal inspection, sclerae normal ENT: normal ENT inspection, pharynx normal Neck: supple, no JVD, + pertinent finding ([facility]) Respiratory/Chest: lungs clear, no respiratory distress, no accessory muscle use Cardiovascular: regular rate, rhythm, no gallop, no murmur Abdomen/GI: non tender, soft Extremities/Musculoskelatal: normal inspection, no pedal edema Neurologic/Psych: alert, oriented x 3 Family History Patient reports no known family medical history. Social History Smokeless Tobacco Use: No Alcohol Use: none Drug Use: none Marital Status: Laboratory Results Past 24 Hours 05/29/16 06:21 Red Blood Count 2.50, Mean Corpuscular Volume 95.2, Mean Corpuscular Hemoglobin 30.0, Mean Corpuscular Hemoglobin Concent 31.5, Mean Platelet Volume 9.7, Neutrophils (%) (Auto) 74.1, Lymphocytes (%) (Auto) 11.0, Monocytes (%) (Auto) 4.3, Eosinophils (%) (Auto) 2.6, Basophils (%) (Auto) 0.1, Neutrophils # (Auto) 10.61, Lymphocytes # (Auto) 1.58, Monocytes # (Auto) 0.62, Eosinophils # (Auto) 0.38, Basophils # (Auto) 0.02 05/29/16 06:21 Test 05/29/16 06:21 White Blood Count 14.34 K/uL (4.8-10.8) Red Blood Count 2.50 M/uL (4.7-6.1) Hemoglobin 7.5 g/dL (14.0-18.0) Hematocrit 23.8 % (42-52) Mean Corpuscular Volume 95.2 fL (80-100) Mean Corpuscular Hemoglobin 30.0 pg (25-34) Mean Corpuscular Hemoglobin Concent 31.5 g/dl (32-36) Platelet Count 277 K/uL (130-400) Mean Platelet Volume 9.7 fL (7.4-10.4) Neutrophils (%) (Auto) 74.1 % Lymphocytes (%) (Auto) 11.0 % Monocytes (%) (Auto) 4.3 % Eosinophils (%) (Auto) 2.6 % Basophils (%) (Auto) 0.1 % Neutrophils # (Auto) 10.61 K/uL (1.4-6.5) Lymphocytes # (Auto) 1.58 K/uL (1.2-3.4) Monocytes # (Auto) 0.62 K/uL (0.11-0.59) Eosinophils # (Auto) 0.38 K/uL (0-0.5) Basophils # (Auto) 0.02 K/uL (0-0.2) RDW Standard Deviation 53.3 fL (36.4-46.3) RDW Coefficient of Variation 15.6 % (11.5-14.5) Immature Granulocyte % (Auto) 7.9 % Immature Granulocyte # (Auto) 1.13 K/uL (0.00-0.02) Nucleated RBC Absolute Count (auto) 0.04 K/uL (0-0) Nucleated Red Blood Cells % 0.3 % Polychromasia 1+ Basophilic Stippling 1+ Anion Gap 14.0 mmol/L (3-11) Est Creatinine Clear Calc Drug Dose 10.0 ml/min Estimated GFR () 8.9 Estimated GFR (Non- 7.7 BUN/Creatinine Ratio 8.1 (10-20) Calcium Level 8.3 mg/dl (8.5-10.1) Phosphorus Level 5.2 mg/dl (2.5-4.9) Magnesium Level 2.1 mg/dl (1.8-2.4) Iron Level 42 mcg/dl (35-175) Total Iron Binding Capacity 131 mcg/dl (250-450) Transferrin 115 mg/dl (200-360) Transferrin % Saturation 26 % (20-50) Ferritin 6812.8 ng/ml (8.0-388.0) Albumin 2.0 gm/dl (3.4-5.0) Allergies Coded Allergies: Aspirin (Unverified Allergy, Unknown, caused a GI Bleed, 05/25/16) Patient is currently taking aspirin Medications Current Inpatient Medications Medications (Trade) Dose Ordered Sig/Edna Route Start Time Stop Time Status Last Admin Dose Admin Ondansetron HCl 4 mg 4 mg Q6H PRN IV 05/25/16 11:45 06/24/16 11:44 05/27/16 07:53 4 MG Piperacillin Sod/ Tazobactam Sod/ Dextrose (Zosyn Iv/D5 100ml) 115 ml @ 28.75 mls/ hr Q12H IV 05/25/16 18:00 06/04/16 17:59 05/29/16 06:05 28.75 MLS/HR Hydromorphone HCl (Dilaudid Inj) 0.5 mg Q4H PRN IV 05/25/16 11:45 06/08/16 11:44 Piperacillin Sod/ Tazobactam Sod 1 ea 1 ea UD PRN N/A 05/25/16 12:45 06/24/16 12:44 Pantoprazole Sodium/Syringe (Protonix Inj/ Syringe) 10 ml @ 5 mls/min DAILY@09,21 IV 05/26/16 08:00 06/25/16 07:59 05/29/16 08:17 5 MLS/MIN Levofloxacin 1 ea 1 ea UD PRN N/A 05/26/16 12:15 06/25/16 12:14 Levofloxacin/Prmx (Levaquin / D5W/ Premixed D5W) 100 ml @ 100 mls/hr Q48H IV 05/28/16 12:00 06/02/16 11:59 05/28/16 12:00 100 MLS/HR Acetaminophen (Tylenol Tab) 650 mg Q6H PRN PO 05/27/16 06:30 06/26/16 06:29 05/28/16 05:53 650 MG Sucralfate (Carafate Susp) 1 gm QID PO 05/27/16 17:00 06/26/16 16:59 05/29/16 08:20 1 GM Albuterol/ Ipratropium (Combivent Respimat Inh) 1 puffs QIDR INH 05/28/16 12:00 06/27/16 11:59 05/29/16 08:16 1 PUFFS Impression (1) End stage chronic kidney disease (2) Dialysis patient (3) CHF (congestive heart failure) (4) Bladder cancer (5) Pneumonia (6) Sepsis Mr. Marito Ng is a 75-year-old male with ESRD on HD MWF admitted with duodenal obstruction. EGD yesterday notable for duodenal ulcer. Recommendations -- HD tomorrow per MWF schedule -- Blood pressure, volume status and electrolytes appropriate -- Iron replete -- Epogen [id number] today -- Medications appropriate for renal function
[2016-05-29] MEDS ORDERED: EPOETIN ALFA 40,000 UNITS/ML VIAL IV ONE (13:00)
--- NOTE | 2016-05-29 13:07 | Gastroenterology Progress Note ---
Progress Note Date of Service: May 29, 2016 Subjective Pt evaluation today including: conversation w/ patient, physical exam, chart review, lab review, review of studies, review of inpatient medication list cc F/U GI bleeding HPI Pt denies n/v. Some gas pains at times. NO stools yet. Tolerating solid diet. Review of Systems Respiratory: No shortness of breath Cardiac: No chest pain Medications Current Inpatient Medications Medications (Trade) Dose Ordered Sig/Edna Route Start Time Stop Time Status Last Admin Dose Admin Ondansetron HCl 4 mg 4 mg Q6H PRN IV 05/25/16 11:45 06/24/16 11:44 05/27/16 07:53 4 MG Piperacillin Sod/ Tazobactam Sod/ Dextrose (Zosyn Iv/D5 100ml) 115 ml @ 28.75 mls/ hr Q12H IV 05/25/16 18:00 06/04/16 17:59 05/29/16 06:05 28.75 MLS/HR Hydromorphone HCl (Dilaudid Inj) 0.5 mg Q4H PRN IV 05/25/16 11:45 06/08/16 11:44 Piperacillin Sod/ Tazobactam Sod 1 ea 1 ea UD PRN N/A 05/25/16 12:45 06/24/16 12:44 Pantoprazole Sodium/Syringe (Protonix Inj/ Syringe) 10 ml @ 5 mls/min DAILY@09,21 IV 05/26/16 08:00 06/25/16 07:59 05/29/16 08:17 5 MLS/MIN Levofloxacin 1 ea 1 ea UD PRN N/A 05/26/16 12:15 06/25/16 12:14 Levofloxacin/Prmx (Levaquin / D5W/ Premixed D5W) 100 ml @ 100 mls/hr Q48H IV 05/28/16 12:00 06/02/16 11:59 05/28/16 12:00 100 MLS/HR Acetaminophen (Tylenol Tab) 650 mg Q6H PRN PO 05/27/16 06:30 06/26/16 06:29 05/28/16 05:53 650 MG Sucralfate (Carafate Susp) 1 gm QID PO 05/27/16 17:00 06/26/16 16:59 05/29/16 08:20 1 GM Albuterol/ Ipratropium (Combivent Respimat Inh) 1 puffs QIDR INH 05/28/16 12:00 06/27/16 11:59 05/29/16 08:16 1 PUFFS Epoetin Alverto (Procrit Inj) 40,000 units ONE ONCE IV 05/29/16 13:00 05/29/16 13:01 Objective Vital Signs Date Time Temp Pulse Resp B/P Pulse Ox O2 Delivery O2 Flow Rate FiO2 05/29/16 11:36 36.8 82 19 96 3.0 05/29/16 08:00 Nasal Cannula 3.0 05/29/16 04:00 Nasal Cannula 3.0 05/29/16 03:45 36.8 82 19 112/72 96 Nasal Cannula 3.0 05/28/16 23:59 Nasal Cannula 3.0 05/28/16 23:32 36.7 85 20 118/69 98 Nasal Cannula 3.0 05/28/16 20:00 Nasal Cannula 3.0 05/28/16 19:52 36.6 86 25 108/67 98 Nasal Cannula 3.0 05/28/16 16:00 Nasal Cannula 3.0 05/28/16 15:39 36.6 83 21 105/67 90 Nasal Cannula 3.0 Physical Exam General Appearance: WD/WN, no apparent distress Respiratory/Chest: lungs clear, no respiratory distress Cardiovascular: no murmur Abdomen: normal bowel sounds, non tender, soft, no organomegaly Laboratory Results Last 24 Hours Test 05/29/16 06:21 White Blood Count 14.34 K/uL Red Blood Count 2.50 M/uL Hemoglobin 7.5 g/dL Hematocrit 23.8 % Mean Corpuscular Volume 95.2 fL Mean Corpuscular Hemoglobin 30.0 pg Mean Corpuscular Hemoglobin Concent 31.5 g/dl Platelet Count 277 K/uL Mean Platelet Volume 9.7 fL Neutrophils (%) (Auto) 74.1 % Lymphocytes (%) (Auto) 11.0 % Monocytes (%) (Auto) 4.3 % Eosinophils (%) (Auto) 2.6 % Basophils (%) (Auto) 0.1 % Neutrophils # (Auto) 10.61 K/uL Lymphocytes # (Auto) 1.58 K/uL Monocytes # (Auto) 0.62 K/uL Eosinophils # (Auto) 0.38 K/uL Basophils # (Auto) 0.02 K/uL RDW Standard Deviation 53.3 fL RDW Coefficient of Variation 15.6 % Immature Granulocyte % (Auto) 7.9 % Immature Granulocyte # (Auto) 1.13 K/uL Nucleated RBC Absolute Count (auto) 0.04 K/uL Nucleated Red Blood Cells % 0.3 % Polychromasia 1+ Basophilic Stippling 1+ Sodium Level 138 mmol/L Potassium Level 3.7 mmol/L Chloride Level 95 mmol/L Carbon Dioxide Level 29 mmol/L Anion Gap 14.0 mmol/L Blood Urea Nitrogen 52 mg/dl Creatinine 6.40 mg/dl Est Creatinine Clear Calc Drug Dose 10.0 ml/min Estimated GFR () 8.9 Estimated GFR (Non- 7.7 BUN/Creatinine Ratio 8.1 Random Glucose 101 mg/dl Calcium Level 8.3 mg/dl Phosphorus Level 5.2 mg/dl Magnesium Level 2.1 mg/dl Iron Level 42 mcg/dl Total Iron Binding Capacity 131 mcg/dl Transferrin 115 mg/dl Transferrin % Saturation 26 % Ferritin 6812.8 ng/ml Albumin 2.0 gm/dl Assessment and Plan Coffee ground emesis-from esophagitis and duodenal ulcer--resolved grade D esophagitis--PPI bid for 6 weeks and will need to be on PPI chronically Duodenal ulcer causing partial obstruction--ppi, check stool for H.pylori acute blood loss anemia--transfuse prn--decreased today but no stools to suggest active GI bleeding abd pain--upper per patient--resolved thickened esophagus on CT---esophagitis on EGD Dilated duodenum and stomach on CT-- duodenal obstruction from Duodenal ulcer- -clinically resolved pancreas lesion---outpt EUS at 6-8 weeks to look at lesion and assess healing of esophagitis and duodenal ulcer discussed with patient. Other option is f/u CT in 3 months. Discussed this could be benign or early cancer. adrenal lesions per hospitalist COPD/pneumonia, elevated BNP per hospitalist I am going off service today at [address] Hart assuming GI care then.
[2016-05-29 14:12] LABS: HEMATOCRIT 25.5 % (42-52)
[2016-05-29 15:18] VITALS: BP 106/67; PULSE 85; TEMP 37; O2SAT 95
[2016-05-29] MEDS: ACETAMINOPHEN 325 MG TAB PO PRN (15:54)
[2016-05-29 16:00] VITALS: O2SAT 95
[2016-05-29 22:57] VITALS: BP 109/64; PULSE 82; TEMP 36.9; O2SAT 92
[2016-05-30] VITALS (22 sets, daily range): BP systolic 99–128; BP diastolic 61–87; PULSE 84–97; TEMP 36.7–37.1; O2SAT 92–95
[2016-05-30] MEDS: PIPERACILL/TAZOBAC IV 3.375 GM in DEXTROSE 5% 100ML 100 ML IV SCH (05:46)
[2016-05-30 05:51] LABS: MEAN CELL VOLUME 92.6 fL (80-100); MEAN CORPUSCULAR HGB CONC 32.4 g/dl (32-36); MEAN PLATELET VOLUME 9.7 fL (7.4-10.4); PLATELET COUNT 312 K/uL (130-400); WHITE BLOOD COUNT 15.01 K/uL (4.8-10.8)
[2016-05-30 06:33] LABS: BUN/CREATININE RATIO 8.6 (10-20); CREATININE 7.8 mg/dl (0.60-1.40)
[2016-05-30 06:34] LABS: CALCIUM 8.2 mg/dl (8.5-10.1); POTASSIUM 3.7 mmol/L (3.5-5.1)
--- NOTE | 2016-05-30 07:51 | Hospitalist Progress Note ---
Hospitalist Progress Note Date of Service May 30, 2016. Subjective Pt evaluation today including: conversation w/ patient, physical exam, chart review, lab review, review of studies, review of inpatient medication list Pain: 4/10, worse with cough PO Intake: Good The patient was seen and examined this morning in the dialysis unit. Pt reports having pelvic pain s/p pelvic fracture on 05/18/16, he's been only using Tylenol for it which seems to curb his pain but not eliminate it. He reports pain in his ribs is much worse with cough, but the mucous isn't coming up unless he forces it. He has a fair appetite, but hasn't had a bowel movement in several days likely due to NPO status with duodenal ulcer. Pt denies feeling weak or fatigued, his hgb has trended back up to 8.1. Pt is overall feeling improved Pt normally wears O2 at home during the day, but takes it off when he's asleep. Discussion was held recommending that he wears it at night if he's requiring it all day even at rest. . He denies chest pain, palpitations, shortness of breath. All Other Systems: Reviewed and Negative (other than listed in HPI) Objective Vital Signs Date Time Temp Pulse Resp B/P Pulse Ox O2 Delivery O2 Flow Rate FiO2 05/30/16 00:05 95 Nasal Cannula 2.0 05/29/16 22:57 36.9 82 16 109/64 92 2.0 05/29/16 16:00 95 Nasal Cannula 2.0 05/29/16 15:18 37.0 85 18 106/67 95 Nasal Cannula 2.0 05/29/16 11:36 36.8 82 19 96 3.0 05/29/16 08:00 Nasal Cannula 3.0 Physical Exam General Appearance: WD/WN, no apparent distress, + moderate distress (with cough) Eyes: PERRL, EOMI ENT: hearing grossly normal, pharynx normal Neck: no JVD Respiratory/Chest: + accessory muscle use, + pertinent finding (+ coarse breath sounds in the left moreso than the right, + coarse cough, + mucous, wearing 2 L O2 via NC, ) Cardiovascular: regular rate, rhythm, no murmur Abdomen: normal bowel sounds, non tender, soft Extremities: non-tender, no pedal edema, no calf tenderness Neurologic/Psychiatric: alert, oriented x 3 Skin: warm/dry, + cyanosis (of the fingertips bilaterally. Poor capillary refill, on dialysis during examination.) Laboratory Results Last 24 Hours Test 05/29/16 14:02 05/30/16 05:10 Hemoglobin 8.0 g/dL 8.1 g/dL Hematocrit 25.5 % 25.0 % White Blood Count 15.01 K/uL Red Blood Count 2.70 M/uL Mean Corpuscular Volume 92.6 fL Mean Corpuscular Hemoglobin 30.0 pg Mean Corpuscular Hemoglobin Concent 32.4 g/dl RDW Standard Deviation 50.6 fL RDW Coefficient of Variation 15.4 % Platelet Count 312 K/uL Mean Platelet Volume 9.7 fL Sodium Level 141 mmol/L Potassium Level 3.7 mmol/L Chloride Level 98 mmol/L Carbon Dioxide Level 29 mmol/L Anion Gap 14.0 mmol/L Blood Urea Nitrogen 67 mg/dl Creatinine 7.80 mg/dl Est Creatinine Clear Calc Drug Dose 8.2 ml/min Estimated GFR () 7.0 Estimated GFR (Non- 6.0 BUN/Creatinine Ratio 8.6 Random Glucose 114 mg/dl Calcium Level 8.2 mg/dl Magnesium Level 2.0 mg/dl Assessment and Plan Severe sepsis due to LLL pneumonia: by definition he has HCAP since he was hospitalized recently at [facility] - treat with Zosyn and Vancomycin for 7 days total (today day6/7), nebulizers, follow CBC - severe sepsis resolved, vitals stable, afebrile, WBC continues to trend down to 15.01 Upper GI bleed due to duodenal ulcer and esophagitis: EGD on 05/27 showed large 2cm duodenal ulcer, no active bleeding - Protonix IV BID x 6 weeks, then chronically per GI, Carafate QID, advance diet to low fiber, tolerating well - H pylori stool antigen sent, this is reference lab - Will need f/u EUS in 6-8 weeks to assess pancreatic lesions per GI, or consider abd CT in 3 months Acute hypoxic respiratory failure - due to pneumonia, down to 3L NC, continues to improve, no respiratory distress SVT: could be atrial fibrillation or PAC's, no known h/o afib - rates have been normal since blood transfusion - HR consistently below 100, transfer to medical floor today Acute blood loss anemia: - transfuse as needed, Hb 8.1 today and stable compared to past 48 hrs, no signs of bleeding, if trending down will transfuse one unit and repeat H/H tomorrow Pelvic fracture: - Sustained on per pt report. Pain is suboptimally controlled only with tylenol, will add tramadol for pain Q4h prn ESRD: consult nephrology for orders, HD 05/27, tolerated well, plan for HD today CODE STATUS: FULL CODE DVT ppx: no chemical anticoagulation with GI bleed, SCDs Disposition: From home, likely tomorrow
[2016-05-30] MEDS: IPRATROPIUM BROMIDE/ALBUTEROL respimat INH INH SCH ×3 (08:23→16:14)
[2016-05-30] MEDS: PANTOprazole INJ 40 MG in SYRINGE 0 ML IV SCH ×2 (08:23→20:51)
[2016-05-30] MEDS: SUCRALFATE 1 GM/10 ML UDC PO SCH ×4 (08:24→20:51)
[2016-05-30] MEDS: ACETAMINOPHEN 325 MG TAB PO PRN (08:27)
--- NOTE | 2016-05-30 09:13 | Dialysis Progress Note ---
Hemodialysis Note Date of Service May 30, 2016. Chief Complaint Follow up evaluation of this patient w/ ESRD on HD admitted with LLL pneumonia and partial intestinal obstruction Subjective Mr. Ng was seen & examined during HD this am. He has ESRD and dialyzes MWF at the [place], [place] HD unit via a R IJ THC. Catheter is functioning A -->A. No complications. Discussed benefits of AVF with patient this morning. He wishes to think about it. The patient was admitted w/ LLL pneumonia. He reports that his breathing has improved. He has been afebrile and currently denies a productive cough. Mr. Ng was found to have intestinal obstruction. EGD revealed gastritis and a large partially obstruction duodenal ulcer. He is now on PPI therapy. He reports that he has resumed his diet. Review of Systems Constitutional: No fever Cardiovascular: No chest pain Respiratory: No dyspnea at rest Abdomen: No nausea, No pain, No vomiting Extremities: No leg edema A complete review of systems was performed. Pertinent positives are noted above. All other systems are negative. Vital Signs Last 8 Hrs Date Time Temp Pulse Resp B/P Pulse Ox O2 Delivery O2 Flow Rate FiO2 05/30/16 07:59 37.0 95 18 128/87 92 Nasal Cannula 2.0 I & O 24-Hour Column 05/30/16 08:00 Intake Total 1017 ml Output Total 200 ml Balance 817 ml Last Recorded Weight Weight (Kilograms): 73.000 Physical Exam General Appearance: no apparent distress Head: normocephalic, atraumatic Eyes: PERRL Neck: no adenopathy Respiratory/Chest: lungs clear, no respiratory distress Cardiovascular: regular rate, rhythm Abdomen/GI: normal bowel sounds, non tender, soft Extremities/Musculoskelatal: no calf tenderness, no pedal edema Neurologic/Psych: alert, oriented x 3 Social History Smokeless Tobacco Use: No Alcohol Use: none Drug Use: none Marital Status: Laboratory Results Past 24 Hours 05/29/16 14:02 05/30/16 05:10 05/30/16 05:10 Test 05/30/16 05:10 Red Blood Count 2.70 M/uL (4.7-6.1) Mean Corpuscular Volume 92.6 fL (80-100) Mean Corpuscular Hemoglobin 30.0 pg (25-34) Mean Corpuscular Hemoglobin Concent 32.4 g/dl (32-36) RDW Standard Deviation 50.6 fL (36.4-46.3) RDW Coefficient of Variation 15.4 % (11.5-14.5) Mean Platelet Volume 9.7 fL (7.4-10.4) Anion Gap 14.0 mmol/L (3-11) Est Creatinine Clear Calc Drug Dose 8.2 ml/min Estimated GFR () 7.0 Estimated GFR (Non- 6.0 BUN/Creatinine Ratio 8.6 (10-20) Calcium Level 8.2 mg/dl (8.5-10.1) Magnesium Level 2.0 mg/dl (1.8-2.4) Allergies Coded Allergies: Aspirin (Unverified Allergy, Unknown, caused a GI Bleed, 05/25/16) Patient is currently taking aspirin Medications Current Inpatient Medications Medications (Trade) Dose Ordered Sig/Edna Route Start Time Stop Time Status Last Admin Dose Admin Ondansetron HCl 4 mg 4 mg Q6H PRN IV 05/25/16 11:45 06/24/16 11:44 05/27/16 07:53 4 MG Piperacillin Sod/ Tazobactam Sod/ Dextrose (Zosyn Iv/D5 100ml) 115 ml @ 28.75 mls/ hr Q12H IV 05/25/16 18:00 06/04/16 17:59 05/30/16 05:46 28.75 MLS/HR Hydromorphone HCl (Dilaudid Inj) 0.5 mg Q4H PRN IV 05/25/16 11:45 06/08/16 11:44 Piperacillin Sod/ Tazobactam Sod 1 ea 1 ea UD PRN N/A 05/25/16 12:45 06/24/16 12:44 Pantoprazole Sodium/Syringe (Protonix Inj/ Syringe) 10 ml @ 5 mls/min DAILY@09,21 IV 05/26/16 08:00 06/25/16 07:59 05/30/16 08:23 5 MLS/MIN Levofloxacin 1 ea 1 ea UD PRN N/A 05/26/16 12:15 06/25/16 12:14 Levofloxacin/Prmx (Levaquin / D5W/ Premixed D5W) 100 ml @ 100 mls/hr Q48H IV 05/28/16 12:00 06/02/16 11:59 05/28/16 12:00 100 MLS/HR Acetaminophen (Tylenol Tab) 650 mg Q6H PRN PO 05/27/16 06:30 06/26/16 06:29 05/30/16 08:27 650 MG Sucralfate (Carafate Susp) 1 gm QID PO 05/27/16 17:00 06/26/16 16:59 05/30/16 08:24 1 GM Albuterol/ Ipratropium (Combivent Respimat Inh) 1 puffs QIDR INH 05/28/16 12:00 06/27/16 11:59 05/30/16 08:23 1 PUFFS Impression (1) End stage chronic kidney disease (2) Dialysis patient (3) CHF (congestive heart failure) (4) Bladder cancer (5) Pneumonia (6) Sepsis Mr. Ng is a 75-year-old male with ESRD on HD MWF admitted with duodenal obstruction. EGD yesterday notable for duodenal ulcer. Recommendations END STAGE RENAL DISEASE: -- HD today for 3.5 hours on 3K 2.5Ca bath -- Attempt 1 - 2 L UF -- No heparin due to anemia and recent ulcer diagnosis -- Epogen 40,000 units SQ administered yesterday -- Patient was encouraged to undergo AVF creation. He is considering this option ANEMIA: -- Iron saturation is acceptable. Ferritin is markedly elevated -- Epogen 40,000 units SQ administered yesterday -- Transfuse to maintain Hgb > 8.0 GI: -- Gastritis and duodenal ulcer -- PPI therapy as per GI ID: -- Admitted w/ LLL pneumonia therapy. Now symptomatically improved -- Blood cultures are NGTD -- Remains on Zosyn therapy
[2016-05-30] MEDS ORDERED: TRAMADOL HCL 50 MG TAB PO PRN (11:00)
[2016-05-30] MEDS ORDERED: LEVOFLOXACIN 500 MG TAB PO SCH (11:00)
[2016-05-30] MEDS: LEVOFLOXACIN 500MG / D5W IV SCH (12:00)
--- NOTE | 2016-05-30 15:03 | PROGRESS NOTE ---
DATE: 05/30/2016 SUBJECTIVE: The patient is tolerating solid food. His hemoglobin and hematocrit are stable. He has received a total of 2 units of red blood cells. His hemoglobin is 8.1 today. White count is still elevated at 15,000. The patient continues on proton pump inhibitor and Carafate for his severe esophagitis and a large deep duodenal ulcer with partial obstruction. IMPRESSION AND PLAN: The patient has got esophagitis and duodenal ulcers, improving on his current regimen. Helicobacter pylori stool test is pending at this time. He also has a 1.5 cm hypodense lesion in the neck of his pancreas that will be followed up as an outpatient, hopefully with Dr. Villarreal.
[2016-05-30] MEDS ORDERED: ALBUT/IPRATROP 3MG/0.5MG NEB 3 ML VIAL INH PRN (17:15)
[2016-05-30] MEDS ORDERED: LIDODERM (LIDOCAINE) PATCH 5% TD ONE (18:00)
[2016-05-30] MEDS ORDERED: LEVOFLOXACIN 250 MG TAB PO SCH (18:00)
[2016-05-30] MEDS: ALBUT/IPRATROP 3MG/0.5MG NEB 3 ML VIAL INH SCH (20:00)
--- NOTE | 2016-05-30 22:49 | DIAGNOSTIC IMAGING REPORT ---
TWO VIEW CHEST CLINICAL HISTORY: Follow-up pneumonia. FINDINGS: AP semierect and lateral chest radiographs are compared to study dated 05/25/2016. The AP view is significantly degraded by patient rotation. A right internal jugular central venous catheter is unchanged in position. The heart is top normal for projection. There is atherosclerotic calcification of the thoracic aorta. The pulmonary vasculature is noncongested. Advanced emphysema is noted. There is I basilar consolidation small pleural effusions, left greater than right. There is no pneumothorax. The skeletal structures are osteopenic. Compression deformities are suggested in the thoracic spine on the lateral view. IMPRESSION: 1. Bibasilar airspace consolidation with small pleural effusions, left greater than right. The appearance suggests pneumonia. Continued radiographic follow-up to resolution is recommended. 2. Emphysema. Electronically signed by: Santiago Hurd M.D. 05/30/2016 10:48 PM Dictated Date/Time: 05/30/2016 10:46 PM
[2016-05-31] VITALS (8 sets, daily range): BP systolic 96–110; BP diastolic 61–74; PULSE 89–93; TEMP 36.8–36.9; O2SAT 92–94
[2016-05-31] MEDS: ALBUT/IPRATROP 3MG/0.5MG NEB 3 ML VIAL INH SCH ×3 (07:12→15:31)
[2016-05-31 07:16] LABS: HEMATOCRIT 27.1 % (42-52); MEAN CELL VOLUME 96.4 fL (80-100); MEAN CORPUSCULAR HEMOGLOBIN 30.2 pg (25-34); MEAN CORPUSCULAR HGB CONC 31.4 g/dl (32-36); PLATELET COUNT 418 K/uL (130-400); RED BLOOD COUNT 2.81 M/uL (4.7-6.1); WHITE BLOOD COUNT 15.86 K/uL (4.8-10.8)
[2016-05-31 07:44] LABS: BASO % 0.3 %; BASO ABS # 0.05 K/uL (0-0.2); COMPLETE YES; EOS % 2.3 %; IG% 8.1 %; LYMPH % 9.7 %; LYMPH ABS # 1.54 K/uL (1.2-3.4); MONO % 4.4 %; NEUT % 75.2 %; POLYCHROMASIA 1+
[2016-05-31 07:58] LABS: BUN/CREATININE RATIO 6.5 (10-20); CALCIUM 8.8 mg/dl (8.5-10.1); CREATININE 5.1 mg/dl (0.60-1.40); POTASSIUM 4.3 mmol/L (3.5-5.1)
[2016-05-31] MEDS: SUCRALFATE 1 GM/10 ML UDC PO SCH ×2 (08:06→13:12)
[2016-05-31] MEDS: PANTOprazole INJ 40 MG in SYRINGE 0 ML IV SCH (08:16)
--- NOTE | 2016-05-31 08:59 | Nephrology Progress Note ---
Nephrology Progress Note Date of Service May 31, 2016. Chief Complaint Follow up evaluation of this patient w/ ESRD on HD admitted with LLL pneumonia and partial intestinal obstruction Subjective Mr. Ng was seen & examined in his hospital room this am. He was dialyzed yesterday for 2 L UF. There were no complications. The patient was admitted w/ LLL pneumonia. He reports that his breathing has improved. He has been afebrile and currently denies a productive cough. Mr. Ng was found to have intestinal obstruction. EGD revealed gastritis and a large partially obstruction duodenal ulcer. He is now on PPI therapy. He reports that he has resumed his diet. Review of Systems Cardiovascular: No chest pain Respiratory: No dyspnea at rest Abdomen: No nausea, No pain, No vomiting Extremities: No leg edema A complete review of systems was performed. Pertinent positives are noted above. All other systems are negative. Vital Signs Last 8 Hrs Date Time Temp Pulse Resp B/P Pulse Ox O2 Delivery O2 Flow Rate FiO2 05/31/16 07:38 36.8 92 18 110/74 94 Nasal Cannula 2.0 05/31/16 07:12 93 14 93 Nasal Cannula 2.0 05/31/16 03:13 92 Nasal Cannula 2.0 I & O 24-Hour Column 05/31/16 07:59 Intake Total 1800 ml Output Total 2400 ml Balance -600 ml Last Recorded Weight Weight (Kilograms): 73.200 Physical Exam General Appearance: no apparent distress Head: normocephalic, atraumatic Eyes: PERRL, EOMI Neck: no adenopathy, + pertinent finding (right IJ THC with clean dry dressing in place) Respiratory/Chest: lungs clear, no respiratory distress Cardiovascular: regular rate, rhythm Abdomen/GI: normal bowel sounds, non tender, soft Extremities/Musculoskelatal: no calf tenderness, no pedal edema Neurologic/Psych: alert, oriented x 3 Family History Patient reports no known family medical history. Social History Smokeless Tobacco Use: No Alcohol Use: none Drug Use: none Marital Status: Laboratory Results Past 24 Hours 05/31/16 06:29 Red Blood Count 2.81, Mean Corpuscular Volume 96.4, Mean Corpuscular Hemoglobin 30.2, Mean Corpuscular Hemoglobin Concent 31.4, Mean Platelet Volume 10.0, Neutrophils (%) (Auto) 75.2, Lymphocytes (%) (Auto) 9.7, Monocytes (%) (Auto) 4.4, Eosinophils (%) (Auto) 2.3, Basophils (%) (Auto) 0.3, Neutrophils # (Auto) 11.92, Lymphocytes # (Auto) 1.54, Monocytes # (Auto) 0.70, Eosinophils # (Auto) 0.37, Basophils # (Auto) 0.05 05/31/16 06:29 Test 05/30/16 13:55 05/31/16 06:29 White Blood Count 15.86 K/uL (4.8-10.8) Red Blood Count 2.81 M/uL (4.7-6.1) Hemoglobin 8.5 g/dL (14.0-18.0) Hematocrit 27.1 % (42-52) Mean Corpuscular Volume 96.4 fL (80-100) Mean Corpuscular Hemoglobin 30.2 pg (25-34) Mean Corpuscular Hemoglobin Concent 31.4 g/dl (32-36) Platelet Count 418 K/uL (130-400) Mean Platelet Volume 10.0 fL (7.4-10.4) Neutrophils (%) (Auto) 75.2 % Lymphocytes (%) (Auto) 9.7 % Monocytes (%) (Auto) 4.4 % Eosinophils (%) (Auto) 2.3 % Basophils (%) (Auto) 0.3 % Neutrophils # (Auto) 11.92 K/uL (1.4-6.5) Lymphocytes # (Auto) 1.54 K/uL (1.2-3.4) Monocytes # (Auto) 0.70 K/uL (0.11-0.59) Eosinophils # (Auto) 0.37 K/uL (0-0.5) Basophils # (Auto) 0.05 K/uL (0-0.2) RDW Standard Deviation 53.0 fL (36.4-46.3) RDW Coefficient of Variation 15.9 % (11.5-14.5) Immature Granulocyte % (Auto) 8.1 % Immature Granulocyte # (Auto) 1.28 K/uL (0.00-0.02) Nucleated RBC Absolute Count (auto) 0.10 K/uL (0-0) Nucleated Red Blood Cells % 0.6 % Polychromasia 1+ Anion Gap 10.0 mmol/L (3-11) Est Creatinine Clear Calc Drug Dose 12.6 ml/min Estimated GFR () 11.7 Estimated GFR (Non- 10.1 BUN/Creatinine Ratio 6.5 (10-20) Calcium Level 8.8 mg/dl (8.5-10.1) Magnesium Level 2.0 mg/dl (1.8-2.4) Allergies Coded Allergies: Aspirin (Unverified Adverse Reaction, Mild, caused a GI Bleed, 05/30/16) Patient is currently taking aspirin Medications Current Inpatient Medications Medications (Trade) Dose Ordered Sig/Edna Route Start Time Stop Time Status Last Admin Dose Admin Ondansetron HCl (Zofran Inj) 4 mg Q6H PRN IV 05/25/16 11:45 06/24/16 11:44 05/27/16 07:53 4 MG Hydromorphone HCl 0.5 mg 0.5 mg Q4H PRN IV 05/25/16 11:45 06/08/16 11:44 Pantoprazole Sodium/Syringe (Protonix Inj/ Syringe) 10 ml @ 5 mls/min DAILY@ IV 05/26/16 08:00 06/25/16 07:59 05/31/16 08:16 5 MLS/MIN Levofloxacin (Consult) 1 ea UD PRN N/A 05/26/16 12:15 06/25/16 12:14 Acetaminophen (Tylenol Tab) 650 mg Q6H PRN PO 05/27/16 06:30 06/26/16 06:29 05/30/16 08:27 650 MG Sucralfate (Carafate Susp) 1 gm QID PO 05/27/16 17:00 06/26/16 16:59 05/31/16 08:06 1 GM Levofloxacin (Levaquin Tab) 500 mg Q2D PO 05/30/16 11:00 06/01/16 14:00 05/30/16 13:14 500 MG Tramadol HCl (Ultram Tab) 50 mg Q4H PRN PO 05/30/16 11:00 06/29/16 10:59 Albuterol/ Ipratropium (Duoneb) 3 ml QIDR INH 05/30/16 20:00 06/29/16 19:59 05/31/16 07:12 3 ML Lidocaine (Lidoderm Patch 5%) 1 patch QAM TD 05/31/16 09:00 06/30/16 08:59 05/31/16 08:16 1 PATCH Miscellaneous (Remove Lidoderm Patch) 1 ea DAILY@21 N/A 05/30/16 21:00 06/29/16 20:59 05/30/16 21:00 1 EA Albuterol/ Ipratropium (Duoneb) 3 ml Q2R PRN INH 05/30/16 17:15 06/29/16 17:14 Impression (1) End stage chronic kidney disease (2) Dialysis patient (3) CHF (congestive heart failure) (4) Bladder cancer (5) Pneumonia (6) Sepsis Mr. Ng is a 75-year-old male with ESRD on HD MWF admitted with duodenal obstruction. EGD yesterday notable for duodenal ulcer. Recommendations END STAGE RENAL DISEASE: -- Patient dialyzed yesterday without complication. -- If discharge is anticipated please have patient resume MWF outpatient HD in [place], [place] -- No heparin due to anemia and recent ulcer diagnosis -- Epogen 40,000 units SQ administered 05/29/16 -- Patient was encouraged to undergo AVF creation. He is considering this option ANEMIA: -- Iron saturation is acceptable. Ferritin is markedly elevated -- Epogen 40,000 units SQ administered 05/29/16 -- Transfuse to maintain Hgb > 8.0 GI: -- Gastritis and duodenal ulcer -- PPI therapy as per GI ID: -- Admitted w/ LLL pneumonia therapy. Now symptomatically improved -- Blood cultures are NGTD -- He is now on Levaquin therapy
[2016-05-31] MEDS ORDERED: LIDODERM (LIDOCAINE) PATCH 5% TD SCH (09:00)
--- NOTE | 2016-05-31 14:54 | Hospitalist Progress Note ---
Hospitalist Progress Note Date of Service May 31, 2016. Subjective Pt evaluation today including: conversation w/ patient, physical exam, chart review, lab review, review of studies, review of inpatient medication list Pain: Mild PO Intake: good Voiding: no voiding problems The patient was seen and examined this morning. Pt reports doing well and is adamant that he wants to go home. Discussion was held regarding physical therapy needs and pt does not want this, he is insistent on being able to return home with health services maximum. CM is assisting with discharge planning. Pt denies fevers, chills, sweats, cp, sob, abd pain, n/v/d/c. All Other Systems: Reviewed and Negative (see HPI) Objective Vital Signs Date Time Temp Pulse Resp B/P Pulse Ox O2 Delivery O2 Flow Rate FiO2 05/31/16 11:39 89 14 94 Nasal Cannula 2.0 05/31/16 09:07 94 Nasal Cannula 2.0 05/31/16 07:38 36.8 92 18 110/74 94 Nasal Cannula 2.0 05/31/16 07:12 93 14 93 Nasal Cannula 2.0 05/31/16 03:13 92 Nasal Cannula 2.0 05/30/16 23:23 37.1 86 18 101/64 94 Nasal Cannula 2.0 05/30/16 16:00 Nasal Cannula 2.0 Physical Exam General Appearance: WD/WN, no apparent distress Eyes: PERRL, EOMI ENT: hearing grossly normal, pharynx normal Neck: supple, no JVD Respiratory/Chest: lungs clear, normal breath sounds, no respiratory distress, no accessory muscle use Cardiovascular: regular rate, rhythm, no murmur Abdomen: normal bowel sounds, non tender, soft Extremities: non-tender, no pedal edema, no calf tenderness, + pertinent finding (AVF in RUE) Neurologic/Psychiatric: alert, normal mood/affect, oriented x 3 Skin: normal color, warm/dry Laboratory Results Last 24 Hours Test 05/31/16 06:29 White Blood Count 15.86 K/uL Red Blood Count 2.81 M/uL Hemoglobin 8.5 g/dL Hematocrit 27.1 % Mean Corpuscular Volume 96.4 fL Mean Corpuscular Hemoglobin 30.2 pg Mean Corpuscular Hemoglobin Concent 31.4 g/dl Platelet Count 418 K/uL Mean Platelet Volume 10.0 fL Neutrophils (%) (Auto) 75.2 % Lymphocytes (%) (Auto) 9.7 % Monocytes (%) (Auto) 4.4 % Eosinophils (%) (Auto) 2.3 % Basophils (%) (Auto) 0.3 % Neutrophils # (Auto) 11.92 K/uL Lymphocytes # (Auto) 1.54 K/uL Monocytes # (Auto) 0.70 K/uL Eosinophils # (Auto) 0.37 K/uL Basophils # (Auto) 0.05 K/uL RDW Standard Deviation 53.0 fL RDW Coefficient of Variation 15.9 % Immature Granulocyte % (Auto) 8.1 % Immature Granulocyte # (Auto) 1.28 K/uL Nucleated RBC Absolute Count (auto) 0.10 K/uL Nucleated Red Blood Cells % 0.6 % Polychromasia 1+ Sodium Level 138 mmol/L Potassium Level 4.3 mmol/L Chloride Level 101 mmol/L Carbon Dioxide Level 27 mmol/L Anion Gap 10.0 mmol/L Blood Urea Nitrogen 33 mg/dl Creatinine 5.10 mg/dl Est Creatinine Clear Calc Drug Dose 12.6 ml/min Estimated GFR () 11.7 Estimated GFR (Non- 10.1 BUN/Creatinine Ratio 6.5 Random Glucose 98 mg/dl Calcium Level 8.8 mg/dl Magnesium Level 2.0 mg/dl Assessment and Plan Severe sepsis due to LLL pneumonia: by definition he has HCAP since he was hospitalized recently at [facility] - treat with Zosyn and Vancomycin for 7 days total (today day 7/7), - will continue levaquin PO for another 3 days at least to complete a 10 day course. - cont nebulizers, follow CBC - severe sepsis resolved, vitals stable, afebrile, WBC sitting around 15.01 x 2 days Upper GI bleed due to duodenal ulcer and esophagitis: EGD on 05/27 showed large 2cm duodenal ulcer, no active bleeding - Protonix BID x 6 weeks- will change to oral upon discharge BID, then chronically once daily per GI, Carafate QID, advance diet to low fiber, tolerating well - H pylori stool antigen sent, this is reference lab - Will need f/u EUS in 6-8 weeks to assess pancreatic lesions per GI, or consider abd CT in 3 months Acute hypoxic respiratory failure - due to pneumonia, down to 2L NC, continues to improve, no respiratory distress - While walking with PT likely desats, need another pulse ox reading as therapist reported it wasn't functioning correctly this mrdigna. SVT: could be atrial fibrillation or PAC's, no known h/o afib - rates have been normal since blood transfusion - HR consistently below 100, no sx of palpitations, flutter, lightheadedness or dizziness. Acute blood loss anemia: - transfuse as needed, Hb 8.5 today and stable/ improving compared to past 48 hrs, no signs of bleeding, -transfuse prn , follow am labs Pelvic fracture: - Sustained on per pt report. Pain is suboptimally controlled only with tylenol, will add tramadol for pain Q4h prn - PT/OT recommending acute rehab. CM has been assisting with d/c to possible [facility] as they'd be able to do dialysis on site. Pt is refusing this currently and would like to return home with home health services at maximum. 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 I'd also recommend that the patient stay in rehab for short time frame at least. Working on discharge but likely not until tomorrow. ESRD: consult nephrology for orders, HD 05/27, tolerated well, last HD was on , normal schedule is MWF. CODE STATUS: FULL CODE DVT ppx: no chemical anticoagulation with GI bleed, SCDs Disposition: From home, likely tomorrow
[2016-05-31] MEDS ORDERED: LDDP5 TD (15:59)
[2016-05-31] MEDS ORDERED: PRT40 PO (15:59)
[2016-05-31] MEDS ORDERED: ULT50X PO (15:59)
[2016-05-31] MEDS ORDERED: CRFUDL PO (15:59)
[2016-05-31] MEDS ORDERED: LVQ500 PO (15:59)
[2016-05-31] MEDS ORDERED: TRAM-10 PO (16:04)
[2016-05-31] MEDS ORDERED: IPRA1AER2 INH (16:05)
--- NOTE | 2016-05-31 16:13 | Discharge Summary ---
Discharge Summary Admission Date: May 25, 2016 at 11:37 Discharge Date: May 31, 2016 Discharge Disposition: Home with services Principal Diagnosis: Severe sepsis due to LLL pneumonia Problems/Secondary Diagnoses: Upper GI bleed due to duodenal ulcer and esophagitis: EGD on 05/27 showed large 2cm duodenal ulcer, no active bleeding Acute hypoxic respiratory failure SVT: Acute blood loss anemia: Pelvic fracture: ESRD: consult nephrology for orders, Procedures: EGD Consultations: GI, renal Medication Reconciliation New Medications: Ipratropium-Albuterol (Combivent Respimat) 1 Aer Aer 1 PUFFS INH QID, #1 INH Tramadol (Ultram) 50 Mg Tab 1 TAB PO TID PRN for Pain for 3 Days, #10 TAB Levofloxacin (Levofloxacin) 500 Mg Tab 500 MG PO Q2D for 7 Days, TAB Lidocaine (Lidocaine) 1 Patch Tdsy 1 PATCH TD QAM for 3 Days Pantoprazole (Pantoprazole Sodium) 40 Mg Tab 40 MG PO BID for 40 Days, #80 TAB Sucralfate (Sucralfate) 1 Gm/10 Ml Susp 1 GM PO QID for 14 Days Continued Medications: Aspirin (Aspirin Ec) 81 Mg Tab 81 MG PO DAILY Atorvastatin (Lipitor) 20 Mg Tab 1 TAB PO HS for 30 Days, TAB 5 Refills Calcium Acetate (Phoslo 667 Mg) 667 Mg Cap 2 CAP PO TID for 30 Days, #180 CAP 5 Refills Cyanocobalamin (B12) 1,000 Mcg Tab Ergocalciferol (Vitamin D 29114 Unit) 50,000 Unit Cap 1 CAP PO WK for 28 Days, #4 CAP 5 Refills Hydrocodone/Acetaminophen 5MG/325MG ([place] 5MG/325MG) Tab 1 TABLET PO PRN for Pain, TAB PRN PAIN Vmmtzfmwfondw-Ivojbrznwb-Gshih (Nyquil Severe Cold/Flu 5-6.25-10-325 mg/15Ml) 1 Liq Liq takes every night Vitamins C & E (Vitamin C) 1 Cap Cap Discontinued Medications: Ketorolac (Toradol) 10 Mg Tab 10 MG PO PRN for Pain, TAB Discharge Exam Generally tired looking, reported getting better, refused the physical therapy, want to go home Review of Systems: Constitutional: + fatigue, + weakness, No chills, No fever, No problem reported, No sweats, No weight loss Eyes: No diplopia, No discharge, No eye pain, No problem reported, No redness, No worsening of vision ENT: No dental problems, No hearing loss, No nasal symptoms, No problem reported, No sore throat, No tinnitus, No trouble swallowing, No unusual epistaxis Respiratory: + cough, + shortness of breath (chronic O2 dependent), No dyspnea at rest, No dyspnea on exertion, No hemoptysis, No problem reported, No sputum, No wheezing Cardiovascular: + edema, No PND, No chest pain, No claudication, No orthopnea, No palpitations, No problem reported Abdomen: No GI bleeding, No constipation, No diarrhea, No nausea, No pain, No problem reported, No vomiting Musculoskeletal: No calf pain, No joint pain, No muscle pain, No problem reported, No swelling Genitourinary - Male: No dysuria, No hematuria, No impotence, No lesions, No penile discharge, No problem reported, No urinary frequency, No urinary hesitancy, No urinary incontinence, No urinary retention, No urinary urgency Neurologic: No balance problems, No memory loss, No numbness/tingling, No paralysis, No problem reported, No vertigo, No weakness Psychiatric: No anhedonism, No anxiety, No depression symptoms, No insomnia , No problem reported, No substance abuse Endocrine: No excessive thirst, No excessive urination, No fatigue, No problem reported Hematologic / Lymphatic: No abnormal bleeding/bruising, No clotting problems , No night sweats, No problem reported, No swollen lymph nodes Integumentary: No bleeding, No color change, No itch, No new/changing skin lesions, No problem reported, No rash Physical Exam: General Appearance: WD/WN, + pertinent finding (chronic ill-looking, tired) Eyes: normal inspection, PERRL, EOMI ENT: normal ENT inspection, hearing grossly normal Neck: supple, no adenopathy, thyroid normal Respiratory/Chest: chest non-tender, + decreased breath sounds, + wheezing ( occasional) Cardiovascular: regular rate, rhythm, no gallop, + pertinent finding (1+ edema bilateral lower ext) Abdomen / GI: normal bowel sounds, non tender, soft Extremities: normal inspection, no calf tenderness Neurologic/Psychiatric: editor index II-XII nml as tested, no motor/sensory deficits , alert, normal mood/affect, normal reflexes, oriented x 3 Skin: normal color Hospital Course Severe sepsis due to LLL pneumonia: by definition he has HCAP since he was hospitalized recently at [facility] - treat with Zosyn and Vancomycin for 7 days total ( 05/30/2106 day 10/21), will continue levaquin PO for another 7 days because chest x-ray possible bilateral lower lobe consolidation Has been on nebulizers, will give Combivent to home - severe sepsis resolved, vitals stable, afebrile, WBC sitting around 15.01 x 2 days CXR repeated on 05/30/2016 which shows: 1. Bibasilar airspace consolidation with small pleural effusions, left greater than right. The appearance suggests pneumonia. Continued radiographic follow-up to resolution is recommended. 2. Emphysema. PCP please follow-up Upper GI bleed due to duodenal ulcer and esophagitis: EGD on 05/27 showed large 2cm duodenal ulcer, no active bleeding - Protonix BID x 6 weeks- will change to oral upon discharge BID, then chronically once daily per GI, Carafate QID, advance diet to low fiber, tolerating well - H pylori stool antigen sent, this is reference lab - Will need f/u EUS in 6-8 weeks to assess pancreatic lesions per GI, or consider abd CT in 3 months Acute hypoxic respiratory failure - due to pneumonia, down to 2L NC, continues to improve, no respiratory distress , patient told me he has oxygen setting up home, is home O2 dependent - While walking with PT likely desats, Episodes of SVT: could be atrial fibrillation or PAC's, no known h/o afib, no more episodes - rates have been normal since blood transfusion - HR consistently below 100, no sx of palpitations, flutter, lightheadedness or dizziness. Acute blood loss anemia: - transfuse as needed, Hb 8.5 today and stable/ improving compared to past 48 hrs, no signs of bleeding, -transfuse prn , follow am labs Pelvic fracture: - Sustained on per pt report. Pain is suboptimally controlled only with tylenol, will add tramadol for pain Q4h prn - PT/OT recommending acute rehab. CM has been assisting with d/c to possible [facility] as they'd be able to do dialysis on site. Pt is refusing this currently and would like to return home with home health services at maximum. 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 I'd also recommend that the patient stay in rehab for short time frame at least. there was discussion with patient and family about discharge plan, we strongly recommend rehabilitation, however patient and daughter want to go home with their own risk, which include fall, injury, and . We try to convincing them not successful ESRD: consult nephrology for orders, HD 05/27, tolerated well, last HD was on , normal schedule is MWF. CODE STATUS: FULL CODE DVT ppx: no chemical anticoagulation with GI bleed, SCDs Disposition home today Instructions / Follow-Up you have Severe sepsis due to pneumonia: you need to continue levaquin PO for another 7 days you have Upper GI bleed due to duodenal ulcer and esophagitis: you need to be on Protonix twice daily x 6 week, low fiber, you need to follow up with Dr. Hart for H pylori stool antigen sent, you need follow up EUS in 6-8 weeks to assess pancreatic lesions per GI, or consider abdominal CT in 3 months I stongly recommend rehab, but you want to go home on you own risks, call pcp if have any questions - you need to follow up with your primary care physician in 1 week, - take medication as instructed, never overdose or any misuse, or take with alcohol, because misuse of medicine may cause organ damage or , call your primary care physician if have questions of medicaitons. - call your primary care physician OR go to local emergency room if has any fever/chill, chest pain, shortness of breathing, nausea/vomiting/abdominal pain , facial droop/slurry speech/local weakness, or if has any questions. - fall precaution - diet as instructed - you need to follow up with your subspecialists - you should understand that it is important to follow up the above instruction , and "not following the above instruction" may cause delayed or missed care of your medical conditions which may cause permanent organ damage and even . Total Time Spent: Greater than 30 minutes This includes examination of the patient, discharge planning, medication reconciliation, and communication with other providers. Discharge Instructions Please refer to the electronic Patient Visit Report (Discharge Instructions) for additional information. Additional Copies To Royal Christianson M.D.; Prasad Hart M.D.; Venkata Albarran D.O.
--- NOTE | 2016-05-31 16:13 | Discharge Instructions ---
Discharge Instructions Admission Reason for Admission: Diverticulitis, Pneumonia Discharge Discharge Diagnosis / Problem: Severe sepsis due to LLL pneumonia Discharge Goals Goal(s): Decrease discomfort, Improve function, Increase independence, Improve disease control, Improve nutritional status, Learn about illness, Diagnostic testing, Therapeutic intervention, Prevent Disease Progression, Specific goals Activity Recommendations Activity Limitations: resume your previous activity Exercise/Sports Limitations: none Shower/Bathe: no limitations Driving or Machine Use: no limitations . Instructions / Follow-Up Instructions / Follow-Up you have Severe sepsis due to pneumonia: you need to continue levaquin PO for another 7 days you have Upper GI bleed due to duodenal ulcer and esophagitis: you need to be on Protonix twice daily x 6 week, low fiber, you need to follow up with Dr. Hart for H pylori stool antigen sent, you need follow up EUS in 6-8 weeks to assess pancreatic lesions per GI, or consider abdominal CT in 3 months I stongly recommend rehab, but you want to go home on you own risks, call pcp if have any questions - you need to follow up with your primary care physician in 1 week, - take medication as instructed, never overdose or any misuse, or take with alcohol, because misuse of medicine may cause organ damage or , call your primary care physician if have questions of medicaitons. - call your primary care physician OR go to local emergency room if has any fever/chill, chest pain, shortness of breathing, nausea/vomiting/abdominal pain , facial droop/slurry speech/local weakness, or if has any questions. - fall precaution - diet as instructed - you need to follow up with your subspecialists - you should understand that it is important to follow up the above instruction , and "not following the above instruction" may cause delayed or missed care of your medical conditions which may cause permanent organ damage and even . Current Hospital Diet Patient's current hospital diet: Renal Diet, Low Fiber Diet Discharge Diet Recommended Diet: Low Fiber Diet Procedures Procedures Performed: EGD Pending Studies Studies pending at discharge: no Medical Emergencies . Who to Call and When: Medical Emergencies: If at any time you feel your situation is an emergency, please call 911 immediately. . Non-Emergent Contact Non-Emergency issues call your: Primary Care Provider, Cephalometric Tracer, Neurologist . . "Provider Documentation" section prepared by Elvis Meaz. VTE Core Measure Inpt VTE Proph given/why not?: Gemma Toth, LUCY's
--- NOTE | 2016-05-31 20:32 | GASTROINTESTINAL CONSULTATION ---
DATE OF CONSULTATION: 05/31/2016 SUBJECTIVE: The patient is resting comfortably in bed at the present time. The patient underwent upper endoscopy on May 27 and found to have a large greater duodenal bulb ulcer along with esophagitis. The patient was placed on Carafate and pantoprazole. ALLERGIES: TO ASPIRIN. MEDICATIONS: Heparin for DVT, pantoprazole, albuterol, ipratropium, levofloxacin, tramadol, sucralfate and Zofran. LABORATORY STUDIES: Today hemoglobin is 8.5 and stable. His white blood cell count however is elevated at 15.8 and slightly trending upward. Platelets are normal at 418,000. PHYSICAL EXAMINATION: GENERAL: The patient is awake, alert and oriented x3. ABDOMEN: Soft, nontender and nondistended with good bowel sounds. EXTREMITIES: Without edema. RECTAL: Deferred at this time. IMPRESSION: The patient with a sizable duodenal ulcer with anemia and acute bleeding. Medical therapy in progress. I would recommend obtaining stool for H. pylori antigen to exclude this as a culprit. Follow hemoglobin serially. A followup endoscopy may be necessary particularly if anticoagulation for any reason is required. If H. pylori is positive, would consider treatment with triple therapy. Addendum: 06/01/16 H pylori stool antigen- non detected MTDD
[2016-05-31] MEDS ORDERED: PANTOprazole SOD 40 MG TAB PO SCH (21:00)
== END 2016-05-31 17:30 | disposition home health service (06) | DRG 871 ==
LOC: ENRESERVTM → ENRESERVDT → C.EDA 09:06 → C.MED 11:37 → C.2E 22:48 → C.MS2W 05-29 11:40
PROVIDERS: ADMIT Internal Medicine; ATTEND Hospitalist
PROC: 0DJ08ZZ Inspection of Upper Intestinal Tract, Via Natural or Artificial Opening Endoscopic (ICD-10-PCS; principal; 2016-05-27 15:13)
DX: A41.9 Sepsis, unspecified organism (principal); N18.6 End stage renal disease; J96.21 Acute and chronic respiratory failure with hypoxia; K26.4 Chronic or unspecified duodenal ulcer with hemorrhage; J18.9 Pneumonia, unspecified organism; I13.2 Hypertensive heart and chronic kidney disease with heart failure and with stage 5 chronic kidney disease, or end stage renal disease; K92.0 Hematemesis; J44.0 Chronic obstructive pulmonary disease with (acute) lower respiratory infection; I47.1 Supraventricular tachycardia; D62 Acute posthemorrhagic anemia; E78.5 Hyperlipidemia, unspecified; Z99.2 Dependence on renal dialysis; Z99.81 Dependence on supplemental oxygen; Z91.19 Patient's noncompliance with other medical treatment and regimen; I50.9 Heart failure, unspecified; E78.00 Pure hypercholesterolemia, unspecified; Z88.6 Allergy status to analgesic agent; Z79.82 Long term (current) use of aspirin; Z79.899 Other long term (current) drug therapy; Y95 Nosocomial condition; J44.9 Chronic obstructive pulmonary disease, unspecified; Z85.51 Personal history of malignant neoplasm of bladder; R65.20 Severe sepsis without septic shock; Z87.891 Personal history of nicotine dependence; K21.0 Gastro-esophageal reflux disease with esophagitis; K29.70 Gastritis, unspecified, without bleeding; Z90.6 Acquired absence of other parts of urinary tract; Z90.79 Acquired absence of other genital organ(s); I48.91 Unspecified atrial fibrillation